=== PATIENT | female | born 1955 | race Caucasian/White ===

== ENCOUNTER → 2017-03-18 | Outpatient (CLI) | payer BC ==
--- NOTE | 2017-03-18 15:50 | US ---
EXAMINATION TYPE: US thyroid st tissue head/neck DATE OF EXAM: 03/18/2017 COMPARISON: Thyroid ultrasound April 27, 2015 CLINICAL HISTORY: E04.1 Thyroid Nodule; Following up left thyroid nodule GLAND SIZE: Right Lobe: 4.5 x 1.5 x 1.2 cm Overall Parenchyma: heterogenous Left Lobe: 5.3 x 1.9 x 1.3 cm Overall Parenchyma: heterogeneous Isthmus Thickness: 0.3 cm NODULES RIGHT: # of nodules measured on right: 0 LEFT: # of nodules measured on left: 1 1. 2.4 X 1.4 x 1.2 cm isoechoic mixed nodule at the lower pole with well-defined margins. This nod ule is wider than tall and shows intranodular vascularity. Prior size: 2.3 x 1.2 x 1.8 cm ISTHMUS: # of nodules measured in the isthmus: 0 Bilateral neck scanned, no evidence of lymphadenopathy. IMPRESSION: There is stable appearing 2.4 cm left thyroid nodule which has been sampled in the past. No new suspi cious greater than 1 cm solid or cystic nodules are seen.
== END | disposition home or self-care (01) ==
LOC: RADUSWWP 15:08
PROVIDERS: ATTEND Family Medicine
DX: E04.1 Nontoxic single thyroid nodule (principal); I48.2 Chronic atrial fibrillation; I10 Essential (primary) hypertension
CPT/HCPCS: 76536

== ENCOUNTER 2020-07-31 18:00 | Emergency (ER) | payer MEDICARE ==
[2020-07-31 18:04] VITALS: TEMP 98.1
[2020-07-31] MEDS ORDERED: HYDROmorphone 1 MG/ML 1 ML SYRINGE IM STA (18:49)
--- NOTE | 2020-07-31 19:48 | XR ---
EXAM: Abdomen radiograph. HISTORY: Pain. TECHNIQUE: Supine AP view. COMPARISON: None available. FINDINGS: There is mild colonic gas with a nonobstructive pattern. There are no pathologic calcifications. No a cute osseous abnormality seen. Cholecystectomy clips seen. IMPRESSION: Nonobstructive bowel gas pattern. Mild colonic gas.
[2020-07-31 20:38] VITALS: RESP 16
--- NOTE | 2020-07-31 22:19 | ED ---
Abdominal Pain HPI - General Chief Complaint: Abdominal Pain Stated Complaint: post op constipation Time Seen by Provider: 07/31/20 18:05 Source: patient Mode of arrival: ambulatory Limitations: no limitations - History of Present Illness Initial Comments: Patient is a 64-year-old female with past medical history of Gen torre who is status post left shoulder repair on July 23. Patient was placed on Percocet after her surgery. States that she has been taking it up until 3 days ago because she began developing constipation. She was taking Ducolax and Colace starting 2 days after surgery and over the past few days also began using glycerin suppositories and an enema. Last BM was the day of her surgery. Patient states that she has significant rectal pain and pressure. Denies any anterior abdominal pain. No nausea or vomiting. No fevers or chills. Denies any issues with her urination. No other alleviating, precipitating or modifying factors - Related Data Home Medications Medication Instructions Recorded Confirmed Acetaminophen Tab [Tylenol Tab] 1,000 mg PO Q6HR PRN 07/31/20 07/31/20 Aspirin EC [Ecotrin Low Dose] 81 mg PO DAILY 07/31/20 07/31/20 Docusate [Colace] 200 mg PO BID PRN 07/31/20 07/31/20 Glycerin Adult Suppository 1 supp RECTAL DAILY PRN 07/31/20 07/31/20 Ibuprofen [Advil] 400 mg PO Q8HR PRN 07/31/20 07/31/20 Magnesium Hydroxide [Dulcolax Oral 60 mg PO BID PRN 07/31/20 07/31/20 Susp] Metoprolol Tartrate [Lopressor] 12.5 mg PO BID 07/31/20 07/31/20 Na Phos,M-B/Na Phos,Di-Ba [Fleet 133 ml RECTAL DAILY PRN 07/31/20 07/31/20 Adult] Ondansetron [Zofran ODT] 4 mg PO Q8HR PRN 07/31/20 07/31/20 Propafenone HCl 300 mg PO DAILY PRN 07/31/20 07/31/20 Previous Rx's Medication Instructions Recorded Hydrocortisone [Anusol-Hc] 1 applic RECTAL TID PRN #60 gm 07/31/20 Allergies Allergy/AdvReac Type Severity Reaction Status Date / Time cobalt Allergy Rash/Hives Verified 07/31/20 18:33 codeine Allergy Nausea & Verified 07/31/20 18:33 Vomiting ferrous sulfate Allergy Rash/Hives Verified 07/31/20 18:33 heparin Allergy Unknown Verified 07/31/20 18:33 nickel Allergy Rash/Hives Verified 07/31/20 18:33 norfloxacin [From Noroxin] Allergy Rash/Hives Verified 07/31/20 18:33 Review of Systems ROS Statement: Those systems with pertinent positive or pertinent negative responses have been documented in the HPI. ROS Other: All systems not noted in ROS Statement are negative. Past Medical History Past Medical History: Atrial Fibrillation, Myocardial Infarction ([place]) Additional Past Medical History / Comment(s): 11/14/14 ADMITTED WITH CHEST DISCOMFORT. 08/14/14 Pt presented to [facility] ER with complaints of irregular heart beat this AM. She did have some SOB and palpitations. Other HX: Afib with RVR with admission 08/06/13 here at [facility]. 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 History of Any Multi-Drug Resistant Organisms: None Reported Past Surgical History: Adenoidectomy, Breast Surgery, Cardiac Ablation, Section, Cholecystectomy, Heart Catheterization, Tonsillectomy Additional Past Surgical History / Comment(s): Left total shoulder surgery. R knee arthroscopy x 4, 2 C-Sections, R breast bx-benign Past Anesthesia/Blood Transfusion Reactions: Motion Sickness Additional Past Anesthesia/Blood Transfusion Reaction / Comment(s): NAUSEA FROM ANESTHESIA. NO REACTIONS FROM BLOOD. Past Psychological History: No Psychological Hx Reported Smoking Status: Never smoker Past Alcohol Use History: Occasional Past Drug Use History: None Reported - Past Family History Father Family Medical History: AFIB, Vascular Disorder Mother Family Medical History: Cancer, Dementia, Hypertension Additional Family Medical History / Comment(s): Mother had a RBBB.MELANOMA Brother(s) Family Medical History: AFIB Additional Family Medical History / Comment(s): Pt has 4 brothers with AFIB. General Exam Limitations: no limitations General appearance: alert, in no apparent distress Head exam: Present: atraumatic, normocephalic, normal inspection Eye exam: Present: normal appearance, PERRL, EOMI. Absent: scleral icterus, conjunctival injection, periorbital swelling ENT exam: Present: normal exam, mucous membranes moist Neck exam: Present: normal inspection. Absent: tenderness, meningismus, lymphadenopathy Respiratory exam: Present: normal lung sounds bilaterally. Absent: respiratory distress, wheezes, rales, rhonchi, stridor Cardiovascular Exam: Present: regular rate, normal rhythm, normal heart sounds. Absent: systolic murmur, diastolic murmur, rubs, gallop, clicks GI/Abdominal exam: Present: soft, normal bowel sounds. Absent: distended, tenderness, guarding, rebound, rigid Rectal exam: Present: fecal impaction, hemorrhoids. Absent: mass Extremities exam: Present: normal inspection, full ROM, normal capillary refill. Absent: tenderness, pedal edema, joint swelling, calf tenderness Back exam: Present: normal inspection Neurological exam: Present: alert, oriented X3, CN II-XII intact Psychiatric exam: Present: normal affect, normal mood Skin exam: Present: warm, dry, intact, normal color. Absent: rash Course Vital Signs 07/31/20 07/31/20 07/31/20 18:02 20:35 22:52 Temperature 98.1 F Pulse Rate 96 79 80 Respiratory 20 16 16 Rate Blood Pressure 145/76 128/88 130/84 O2 Sat by Pulse 99 98 Oximetry Medical Decision Making - Medical Decision Making Upon arrival patient was placed into room 21. A thorough history and physical exam was performed. I did recommend an x-ray which demonstrates nonobstructive bowel gas pattern with mild colonic gas. I did discuss disimpaction versus enema and the patient does agree to both. She is concerned about significant pain during the disimpaction and therefore is requesting pain medications. She was given an IM injection of Dilaudid. Rectal does impaction was performed however the patient did not tolerate it well. This is followed by a milk of molasses enema. Patient does have a small bowel movement and feels comfortable going home at this time. I did recommend continued stimulation to ensure that the patient is moving her bowels appropriately. I discussed treatment with magnesium citrate and milk of magnesia. Patient states that she would prefer milk of mag will pick it up from the pharmacy tomorrow. The patient does have some rectal pain with an inflamed hemorrhoid and therefore I did write the patient for Anusol cream. The patient is instructed to follow-up with her primary care doctor. Recommended staying away from narcotic pain medications for postop pain control. Call her orthopedic doctor tomorrow to see if she may take NSAIDs. The patient agreed to this. She was given written and verbal discharge instructions and discharged home in stable condition Disposition Clinical Impression: Constipation, S/P shoulder surgery Disposition: HOME SELF-CARE Condition: Stable Instructions (If sedation given, give patient instructions): Constipation (ED) Additional Instructions: Please purchase Milk of Magnesia tomorrow as directed in order to have a bowel movement. Use the Anusol cream for rectal pain. Follow-up with your doctor within 2-4 days. Return to the emergency room for any new or worsening symptoms Prescriptions: Hydrocortisone [Anusol-Hc] 1 applic RECTAL TID PRN #60 gm PRN Reason: Pain Is patient prescribed a controlled substance at d/c from ED?: No Referrals: Alicia Reyes III, MD [Primary Care Provider] - 1-2 days Time of Disposition: 22:19
[2020-07-31 22:54] VITALS: BP 130/84; PULSE 80
== END 2020-07-31 22:54 | disposition home or self-care (01) ==
LOC: EC 18:00
DX: K59.09 Other constipation (principal); I25.2 Old myocardial infarction; I48.91 Unspecified atrial fibrillation; Z90.49 Acquired absence of other specified parts of digestive tract; Z95.5 Presence of coronary angioplasty implant and graft; Z90.09 Acquired absence of other part of head and neck
CPT/HCPCS: 74018; 99284; 96372; J1170

== ENCOUNTER 2021-06-01 16:47 | Emergency (ER) | payer MEDICARE ==
[2021-06-01] MEDS ORDERED: SODIUM CHLORIDE 0.9% 1,000 ML IV ONE (17:08)
[2021-06-01 17:19] LABS: Basophils % (A) 0 %; Eosinophils # (A) 0.2 k/uL (0-0.7); Eosinophils % (A) 2 %; HCT 42.7 % (34.0-46.0); HGB 13.7 gm/dL (11.4-16.0); Lymphocytes # (A) 2.8 k/uL (1.0-4.8); Lymphocytes % (A) 34 %; MCH 31.4 pg (25.0-35.0); Mean Platelet Volume 9.6; Monocytes # (A) 0.5 k/uL (0-1.0); Monocytes % (A) 6 %; Neutrophils # (A) 4.6 k/uL (1.3-7.7); Neutrophils % (A) 55 %; Platelet Count 210 k/uL (150-450); RBC 4.36 m/uL (3.80-5.40); RDW 14.4 % (11.5-15.5); WBC 8.3 k/uL (3.8-10.6)
[2021-06-01] MEDS ORDERED: DILTIAZEM DRIP BOLUS FROM BAG 1 MG SOLN IV ONE (17:20)
[2021-06-01] MEDS ORDERED: DILTIAZEM 125 MG in SODIUM CHLORIDE 0.9% 100 ML IV SCH (17:30)
[2021-06-01 17:33] LABS: Partial Thromboplastin Time 28.8 sec (22.0-30.0); Prothrombin Time 10.6 sec (9.0-12.0)
[2021-06-01 17:39] LABS: Albumin 4.3 g/dL (3.5-5.0); Magnesium 1.7 mg/dL (1.6-2.3); Potassium 4.1 mmol/L (3.5-5.1); Total Bilirubin 0.5 mg/dL (0.2-1.3); Total Protein 7.5 g/dL (6.3-8.2)
--- NOTE | 2021-06-01 17:53 | XR ---
EXAMINATION TYPE: XR chest 1V portable DATE OF EXAM: 06/01/2021 COMPARISON: 01/28/2017 HISTORY: Dysrhythmia TECHNIQUE: Single view FINDINGS: There is no heart failure no confluent pneumonic infiltrate. Costophrenic angles are clear. There is left shoulder prosthesis. There are chest leads. Or significant arthritic disease in the ri t shoulder. IMPRESSION: No active cardiopulmonary disease. No adverse change.
--- NOTE | 2021-06-01 17:58 | ED ---
General Adult HPI - General Chief complaint: Arrhythmia/Palpitations Stated complaint: Racing HR Time Seen by Provider: 06/01/21 17:01 Source: patient, RN notes reviewed, old records reviewed Mode of arrival: wheelchair Limitations: no limitations - History of Present Illness Initial comments: 65-year-old female presenting for evaluation of palpitation, sensation and she has a racing heart. She has history of atrial fibrillation. She is on Rythmol and metoprolol. Patient states that just prior to arrival she developed the sensation of racing heart. She has some minimal chest discomfort associated with this. As well as minimal dyspnea. No fever. No vomiting. No lower extremity pain or swelling. - Related Data Home Medications Medication Instructions Recorded Confirmed Metoprolol Tartrate [Lopressor] 25 mg PO BID 07/31/20 06/01/21 Propafenone HCl 300 mg PO DAILY PRN 07/31/20 06/01/21 Apixaban [Eliquis] 5 mg PO BID 06/01/21 06/01/21 Ascorbic Acid [Vitamin C] 1,000 mg PO DAILY 06/01/21 06/01/21 Carbidopa-Levodopa 25-100 mg 1.5 tab PO TID 06/01/21 06/01/21 [Sinemet 25-100] Cholecalciferol [Vitamin D3 (25 25 mcg PO DAILY 06/01/21 06/01/21 Mcg = 1000 Iu)] Allergies Allergy/AdvReac Type Severity Reaction Status Date / Time cobalt Allergy Rash/Hives Verified 06/01/21 17:49 ferrous sulfate Allergy Rash/Hives Verified 06/01/21 17:49 heparin Allergy Unknown Verified 06/01/21 17:49 nickel Allergy Rash/Hives Verified 06/01/21 17:49 norfloxacin [From Noroxin] Allergy Rash/Hives Verified 06/01/21 17:49 codeine AdvReac Nausea & Verified 06/01/21 17:49 Vomiting Review of Systems ROS Statement: Those systems with pertinent positive or pertinent negative responses have been documented in the HPI. ROS Other: All systems not noted in ROS Statement are negative. Past Medical History Past Medical History: Atrial Fibrillation, Myocardial Infarction ([place]) Additional Past Medical History / Comment(s): 11/14/14 ADMITTED WITH CHEST DISCOMFORT. 08/14/14 Pt presented to [facility] ER with complaints of irregular heart beat this AM. She did have some SOB and palpitations. Other HX: Afib with RVR with admission 08/06/13 here at [facility]. 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 History of Any Multi-Drug Resistant Organisms: None Reported Past Surgical History: Adenoidectomy, Breast Surgery, Cardiac Ablation, Section, Cholecystectomy, Heart Catheterization, Tonsillectomy Additional Past Surgical History / Comment(s): Left total shoulder surgery. R knee arthroscopy x 4, 2 C-Sections, R breast bx-benign Past Anesthesia/Blood Transfusion Reactions: Motion Sickness Additional Past Anesthesia/Blood Transfusion Reaction / Comment(s): NAUSEA FROM ANESTHESIA. NO REACTIONS FROM BLOOD. Past Psychological History: No Psychological Hx Reported Smoking Status: Never smoker Past Alcohol Use History: Occasional Past Drug Use History: None Reported - Past Family History Father Family Medical History: AFIB, Vascular Disorder Mother Family Medical History: Cancer, Dementia, Hypertension Additional Family Medical History / Comment(s): Mother had a RBBB.MELANOMA Brother(s) Family Medical History: AFIB Additional Family Medical History / Comment(s): Pt has 4 brothers with AFIB. General Exam Limitations: no limitations General appearance: alert, in no apparent distress Head exam: Present: atraumatic, normocephalic Eye exam: Present: normal appearance, PERRL, EOMI ENT exam: Present: normal exam Neck exam: Present: normal inspection. Absent: tenderness, meningismus Respiratory exam: Present: normal lung sounds bilaterally. Absent: respiratory distress Cardiovascular Exam: Present: tachycardia, irregular rhythm GI/Abdominal exam: Present: soft. Absent: distended, tenderness, guarding Extremities exam: Present: normal inspection, normal capillary refill. Absent: pedal edema, calf tenderness Neurological exam: Present: alert, oriented X3, CN II-XII intact. Absent: motor sensory deficit Psychiatric exam: Present: normal affect, normal mood Skin exam: Present: warm, dry, intact. Absent: cyanosis, diaphoretic Course Vital Signs 06/01/21 06/01/21 06/01/21 17:07 17:10 17:11 Temperature 98.3 F 98.4 F Pulse Rate 154 H 178 H Pulse Rate [ 137 H [employer] Business [employer] ] Respiratory 18 24 Rate Blood Pressure 146/100 146/100 O2 Sat by Pulse 99 96 Oximetry 06/01/21 06/01/21 06/01/21 17:27 18:26 18:57 Temperature Pulse Rate 147 H 166 H 151 H Pulse Rate [ [employer] ] Respiratory 18 Rate Blood Pressure 109/55 107/64 114/63 O2 Sat by Pulse 100 100 100 Oximetry 06/01/21 06/01/21 21:00 22:03 Temperature Pulse Rate 85 78 Pulse Rate [ [employer] ] Respiratory 18 18 Rate Blood Pressure 104/64 99/55 O2 Sat by Pulse 95 96 Oximetry - Reevaluation(s) Reevaluation #1: 06/01/21 17:[address] Julien regarding antiarrhythmic choice, agrees with Cardizem at this time. EKG Findings - EKG Comments: EKG Findings:: EKG: Atrial fibrillation with RVR, low voltage, LVH, ST segment depression and T-wave inversion in the lateral precordial leads as well as aVL. No ST segment elevation. Rate of 170, QRS duration 83, QTC 348. Repeat EKG at 2113, sinus rhythm with a rate of 90, W[place] interval 165, QRS duration 89, QTC 395, no ST segment elevation, T-wave inversion in the inferior leads and lateral leads. Medical Decision Making - Medical Decision Making 65-year-old female with atrial fibrillation presenting with palpitations, found to be in atrial fibrillation with RVR. Patient is otherwise stable. Workup is initiated. Chest x-ray is clear. She has normal CBC, normal CMP, negative troponin. I did discuss case with cardiology regarding antiarrhythmics because the patient was on metoprolol and Rythmol. Her condition was for a Cardizem infusion. This was started in the emergency department. I did plan to admit this patient for telemetry, close monitoring and cardiology consultation. The patient wished to wait in the emergency department to see if she would convert. She states that on previous occasions she had converted in the emergency department and did not require admission. She does not want to be admitted at this time. I had already discussed case with the admitting team, Daniella parham for [facility]. Patient's was observed and did convert to sinus rhythm. She states she has an appointment with her traffic controller cable for stress echo and further evaluation within the next several weeks. She wishes to be discharged home. She's given strict return parameters including chest pain or palpitations, lightheadedness, or syncope. - Lab Data Result diagrams: 06/01/21 17:06 06/01/21 17:06 Lab Results 06/01/21 06/01/21 06/01/21 Range/Units 17:06 17:06 17:06 WBC 8.3 (3.8-10.6) k/uL RBC 4.36 (3.80-5.40) m/uL Hgb 13.7 (11.4-16.0) gm/dL Hct 42.7 (34.0-46.0) % MCV 98.0 (80.0-100.0) fL MCH 31.4 (25.0-35.0) pg MCHC 32.0 (31.0-37.0) g/dL RDW 14.4 (11.5-15.5) % Plt Count 210 (150-450) k/uL MPV 9.6 Neutrophils % 55 % Lymphocytes % 34 % Monocytes % 6 % Eosinophils % 2 % Basophils % 0 % Neutrophils # 4.6 (1.3-7.7) k/uL Lymphocytes # 2.8 (1.0-4.8) k/uL Monocytes # 0.5 (0-1.0) k/uL Eosinophils # 0.2 (0-0.7) k/uL Basophils # 0.0 (0-0.2) k/uL PT 10.6 (9.0-12.0) sec INR 1.0 (<1.2) APTT 28.8 (22.0-30.0) sec Sodium (137-145) mmol/L Potassium (3.5-5.1) mmol/L Chloride (98-107) mmol/L Carbon Dioxide (22-30) mmol/L Anion Gap mmol/L BUN (7-17) mg/dL Creatinine (0.52-1.04) mg/dL Est GFR (CKD-EPI)AfAm (>60 ml/min/1.73 sqM) Est GFR (CKD-EPI)NonAf (>60 ml/min/1.73 sqM) Glucose (74-99) mg/dL Calcium (8.4-10.2) mg/dL Magnesium (1.6-2.3) mg/dL Total Bilirubin (0.2-1.3) mg/dL AST (14-36) U/L ALT (4-34) U/L Alkaline Phosphatase (38-126) U/L Troponin I (0.000-0.034) ng/mL Total Protein (6.3-8.2) g/dL Albumin (3.5-5.0) g/dL TSH (0.465-4.680) mIU/L Urine Color Light Yellow Urine Appearance Clear (Clear) Urine pH 6.0 (5.0-8.0) Ur Specific [place] 1.003 (1.001-1.035) Urine Protein Negative (Negative) Urine Glucose (UA) Negative (Negative) Urine Ketones 1+ H (Negative) Urine Blood Negative (Negative) Urine Nitrite Negative (Negative) Urine Bilirubin Negative (Negative) Urine Urobilinogen <2.0 (<2.0) mg/dL Ur Leukocyte Esterase Moderate H (Negative) Urine RBC 1 (0-5) /hpf Urine WBC 20 H (0-5) /hpf Ur Squamous Epith Cells 1 (0-4) /hpf Urine Bacteria Rare H (None) /hpf Urine Mucus Rare H (None) /hpf 06/01/21 06/01/21 06/01/21 Range/Units 17:06 17:06 21:35 WBC (3.8-10.6) k/uL RBC (3.80-5.40) m/uL Hgb (11.4-16.0) gm/dL Hct (34.0-46.0) % MCV (80.0-100.0) fL MCH (25.0-35.0) pg MCHC (31.0-37.0) g/dL RDW (11.5-15.5) % Plt Count (150-450) k/uL MPV Neutrophils % % Lymphocytes % % Monocytes % % Eosinophils % % Basophils % % Neutrophils # (1.3-7.7) k/uL Lymphocytes # (1.0-4.8) k/uL Monocytes # (0-1.0) k/uL Eosinophils # (0-0.7) k/uL Basophils # (0-0.2) k/uL PT (9.0-12.0) sec INR (<1.2) APTT (22.0-30.0) sec Sodium 137 (137-145) mmol/L Potassium 4.1 (3.5-5.1) mmol/L Chloride 103 (98-107) mmol/L Carbon Dioxide 22 (22-30) mmol/L Anion Gap 12 mmol/L BUN 22 H (7-17) mg/dL Creatinine 0.81 (0.52-1.04) mg/dL Est GFR (CKD-EPI)AfAm 88 (>60 ml/min/1.73 sqM) Est GFR (CKD-EPI)NonAf 76 (>60 ml/min/1.73 sqM) Glucose 94 (74-99) mg/dL Calcium 9.0 (8.4-10.2) mg/dL Magnesium 1.7 (1.6-2.3) mg/dL Total Bilirubin 0.5 (0.2-1.3) mg/dL AST 19 (14-36) U/L ALT 9 (4-34) U/L Alkaline Phosphatase 100 (38-126) U/L Troponin I <0.012 <0.012 (0.000-0.034) ng/mL Total Protein 7.5 (6.3-8.2) g/dL Albumin 4.3 (3.5-5.0) g/dL TSH 2.040 (0.465-4.680) mIU/L Urine Color Urine Appearance (Clear) Urine pH (5.0-8.0) Ur Specific [place] (1.001-1.035) Urine Protein (Negative) Urine Glucose (UA) (Negative) Urine Ketones (Negative) Urine Blood (Negative) Urine Nitrite (Negative) Urine Bilirubin (Negative) Urine Urobilinogen (<2.0) mg/dL Ur Leukocyte Esterase (Negative) Urine RBC (0-5) /hpf Urine WBC (0-5) /hpf Ur Squamous Epith Cells (0-4) /hpf Urine Bacteria (None) /hpf Urine Mucus (None) /hpf Disposition Clinical Impression: Atrial fibrillation with RVR, Atrial fibrillation Disposition: HOME SELF-CARE Condition: Fair Instructions (If sedation given, give patient instructions): A-fib (Atrial Fibrillation) (ED), Heart Palpitations (ED) Is patient prescribed a controlled substance at d/c from ED?: No Referrals: Alicia Reyes III, MD [Primary Care Provider] - 1-2 days
[2021-06-01 18:58] VITALS: RESP 18
[2021-06-01 19:56] LABS: Appearance,Urine Clear (Clear); Bacteria,Urine Rare /hpf; Bilirubin,Urine Negative (Negative); Blood,Urine Negative (Negative); Color,Urine Light Yellow; Glucose,Urine (UA) Negative (Negative); Ketones,Urine 1+ (Negative); Leukocyte Esterase,Urine Moderate (Negative); Mucus,Urine Rare /hpf; Nitrite,Urine Negative (Negative); Protein,Urine Negative (Negative); RBC,Urine 1 /hpf (0-5); Specific Gravity,Urine 1.003 (1.001-1.035); Squamous Epithelial Cell,Urine 1 /hpf (0-4); Urobilinogen,Urine <2.0 mg/dL (<2.0); WBC,Urine 20 /hpf (0-5)
[2021-06-01] MEDS ORDERED: SODIUM CHLORIDE 0.9% 500 ML 500 ML IV ONE (20:26)
[2021-06-01 22:47] VITALS: BP 117/60; PULSE 82; TEMP 97.9
== END 2021-06-01 23:01 | disposition home or self-care (01) ==
LOC: EC 16:47
DX: I48.20 Chronic atrial fibrillation, unspecified (principal); I25.2 Old myocardial infarction; Z79.01 Long term (current) use of anticoagulants; Z88.5 Allergy status to narcotic agent; Z88.1 Allergy status to other antibiotic agents; Z90.49 Acquired absence of other specified parts of digestive tract
CPT/HCPCS: 36415; 71045; 80053; 81001; 83735; 84443; 84484; 85025; 85610; 85730; 87077; 87086; 87186; 93005; 96374; 99285

== ENCOUNTER 2021-10-23 10:12 | Inpatient (IN) | payer MEDICARE ==
[2021-10-23] MEDS ORDERED: DILTIAZEM DRIP BOLUS FROM BAG 1 MG SOLN IV ONE (10:32)
[2021-10-23] MEDS ORDERED: SODIUM CHLORIDE 0.9% 500 ML 500 ML IV STA (10:32)
[2021-10-23] MEDS ORDERED: MAGNESIUM SULFATE-D5W PMX 1 GM in DEXTROSE/WATER 1 100ML.BAG IVPB STA (10:32)
--- NOTE | 2021-10-23 11:05 | ED ---
Arrhythmia/Palpitations HPI - General Chief Complaint: Arrhythmia/Palpitations Stated Complaint: AFIB Time Seen by Provider: 10/23/21 10:20 Source: patient, RN notes reviewed Mode of arrival: wheelchair Limitations: no limitations - History of Present Illness Initial Comments: This is a 65-year-old female presents emergency Department with chief complaint of palpitations, A. fib. Patient has long history of atrial fibrillation patient she is on blood thinners, medications for A. fib and has had ablation past he states around 9:30 last that she took a drink water and felt symptoms started. She states she took her normal medications until next dose with no relief of symptoms. Patient states that she feels lightheaded, short of breath at times. Patient states she still feels that she is in A. fib. - Related Data Home Medications Medication Instructions Recorded Confirmed Metoprolol Tartrate [Lopressor] 12.5 mg PO BID 07/31/20 10/23/21 Apixaban [Eliquis] 5 mg PO BID 06/01/21 10/23/21 Carbidopa-Levodopa 25-100 mg 1.5 tab PO TID 06/01/21 10/23/21 [Sinemet 25-100] Propafenone [Rythmol] 150 mg PO Q8H 10/23/21 10/23/21 Allergies Allergy/AdvReac Type Severity Reaction Status Date / Time cobalt Allergy Rash/Hives Verified 10/23/21 11:29 ferrous sulfate Allergy Rash/Hives Verified 10/23/21 11:29 nickel Allergy Rash/Hives Verified 10/23/21 11:29 norfloxacin [From Noroxin] Allergy Rash/Hives Verified 10/23/21 11:29 codeine AdvReac Nausea & Verified 10/23/21 11:29 Vomiting heparin AdvReac see comment Verified 10/23/21 11:29 Review of Systems ROS Statement: Those systems with pertinent positive or pertinent negative responses have been documented in the HPI. ROS Other: All systems not noted in ROS Statement are negative. Past Medical History Past Medical History: Atrial Fibrillation, Myocardial Infarction ([place]) Additional Past Medical History / Comment(s): 11/14/14 ADMITTED WITH CHEST DISCOMFORT. 08/14/[address] [facility] ER with complaints of irregular heart beat this AM. She did have some SOB and palpitations. Other HX: Afib with RVR with admission 08/06/[address] [facility]. 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 History of Any Multi-Drug Resistant Organisms: None Reported Past Surgical History: Adenoidectomy, Breast Surgery, Cardiac Ablation, Section, Cholecystectomy, Heart Catheterization, Tonsillectomy Additional Past Surgical History / Comment(s): Left total shoulder surgery. R knee arthroscopy x 4, 2 C-Sections, R breast bx-benign Past Anesthesia/Blood Transfusion Reactions: Motion Sickness Additional Past Anesthesia/Blood Transfusion Reaction / Comment(s): NAUSEA FROM ANESTHESIA. NO REACTIONS FROM BLOOD. Past Psychological History: No Psychological Hx Reported Smoking Status: Former smoker Past Alcohol Use History: Occasional Past Drug Use History: None Reported - Past Family History Father Family Medical History: AFIB, Vascular Disorder Mother Family Medical History: Cancer, Dementia, Hypertension Additional Family Medical History / Comment(s): Mother had a RBBB.MELANOMA Brother(s) Family Medical History: AFIB Additional Family Medical History / Comment(s): Pt has 4 brothers with AFIB. General Exam Limitations: no limitations General appearance: alert, in no apparent distress Head exam: Present: atraumatic, normocephalic, normal inspection Eye exam: Present: normal appearance, PERRL, EOMI. Absent: scleral icterus, conjunctival injection, periorbital swelling ENT exam: Present: normal exam, normal oropharynx, mucous membranes moist Neck exam: Present: normal inspection. Absent: tenderness, meningismus, lymphadenopathy Respiratory exam: Present: normal lung sounds bilaterally. Absent: respiratory distress, wheezes, rales, rhonchi, stridor Cardiovascular Exam: Present: tachycardia, irregular rhythm, normal heart sounds. Absent: regular rate, normal rhythm, systolic murmur, diastolic murmur, rubs, gallop, clicks GI/Abdominal exam: Present: soft, normal bowel sounds. Absent: distended, tenderness, guarding, rebound, rigid Course Vital Signs 10/23/21 10/23/21 10:18 11:32 Temperature 98.2 F Pulse Rate 121 H 120 H Respiratory 16 18 Rate Blood Pressure 110/75 115/93 O2 Sat by Pulse 98 97 Oximetry EKG Findings - EKG Comments: EKG Findings:: Atrial flutter with RVR rate of 119 QRS 119 QT/QTC 241/312 Medical Decision Making - Medical Decision Making 65-year-old female presented for palpitations. Patient has atrial flutter with RVR. Patient started on Cardizem, magnesium, Cardizem infusion. Patient said persistent tachycardia, RVR. Patiently admitted for further medication, evaluation. - Lab Data Result diagrams: 10/23/21 10:36 10/23/21 10:36 Lab Results 10/23/21 10/23/21 10/23/21 Range/Units 10:36 10:36 10:36 WBC 6.1 (3.8-10.6) k/uL RBC 4.35 (3.80-5.40) m/uL Hgb 13.5 (11.4-16.0) gm/dL Hct 42.7 (34.0-46.0) % MCV 98.1 (80.0-100.0) fL MCH 31.0 (25.0-35.0) pg MCHC 31.6 (31.0-37.0) g/dL RDW 14.0 (11.5-15.5) % Plt Count 185 (150-450) k/uL MPV 9.8 Neutrophils % 73 % Lymphocytes % 18 % Monocytes % 6 % Eosinophils % 2 % Basophils % 1 % Neutrophils # 4.5 (1.3-7.7) k/uL Lymphocytes # 1.1 (1.0-4.8) k/uL Monocytes # 0.4 (0-1.0) k/uL Eosinophils # 0.1 (0-0.7) k/uL Basophils # 0.0 (0-0.2) k/uL PT 10.9 (9.0-12.0) sec INR 1.0 (<1.2) APTT 29.5 (22.0-30.0) sec Sodium 139 (137-145) mmol/L Potassium 4.3 (3.5-5.1) mmol/L Chloride 107 (98-107) mmol/L Carbon Dioxide 23 (22-30) mmol/L Anion Gap 9 mmol/L BUN 14 (7-17) mg/dL Creatinine 0.62 (0.52-1.04) mg/dL Est GFR (CKD-EPI)AfAm >90 (>60 ml/min/1.73 sqM) Est GFR (CKD-EPI)NonAf >90 (>60 ml/min/1.73 sqM) Glucose 104 H (74-99) mg/dL Calcium 9.1 (8.4-10.2) mg/dL Magnesium 1.5 L (1.6-2.3) mg/dL Total Bilirubin 0.4 (0.2-1.3) mg/dL AST 15 (14-36) U/L ALT <6 (4-34) U/L Alkaline Phosphatase 73 (38-126) U/L Troponin I (0.000-0.034) ng/mL Total Protein 6.6 (6.3-8.2) g/dL Albumin 3.8 (3.5-5.0) g/dL 10/23/21 Range/Units 10:36 WBC (3.8-10.6) k/uL RBC (3.80-5.40) m/uL Hgb (11.4-16.0) gm/dL Hct (34.0-46.0) % MCV (80.0-100.0) fL MCH (25.0-35.0) pg MCHC (31.0-37.0) g/dL RDW (11.5-15.5) % Plt Count (150-450) k/uL MPV Neutrophils % % Lymphocytes % % Monocytes % % Eosinophils % % Basophils % % Neutrophils # (1.3-7.7) k/uL Lymphocytes # (1.0-4.8) k/uL Monocytes # (0-1.0) k/uL Eosinophils # (0-0.7) k/uL Basophils # (0-0.2) k/uL PT (9.0-12.0) sec INR (<1.2) APTT (22.0-30.0) sec Sodium (137-145) mmol/L Potassium (3.5-5.1) mmol/L Chloride (98-107) mmol/L Carbon Dioxide (22-30) mmol/L Anion Gap mmol/L BUN (7-17) mg/dL Creatinine (0.52-1.04) mg/dL Est GFR (CKD-EPI)AfAm (>60 ml/min/1.73 sqM) Est GFR (CKD-EPI)NonAf (>60 ml/min/1.73 sqM) Glucose (74-99) mg/dL Calcium (8.4-10.2) mg/dL Magnesium (1.6-2.3) mg/dL Total Bilirubin (0.2-1.3) mg/dL AST (14-36) U/L ALT (4-34) U/L Alkaline Phosphatase (38-126) U/L Troponin I <0.012 (0.000-0.034) ng/mL Total Protein (6.3-8.2) g/dL Albumin (3.5-5.0) g/dL Critical Care Time Critical Care Time: Yes Total Critical Care Time: 35 Disposition Clinical Impression: Atrial flutter with rapid ventricular response Disposition: ADMITTED IP TO THIS HOSP Condition: Fair Referrals: Alicia Reyes III, MD [Primary Care Provider] - 1-2 days Time of Disposition: 12:41
[2021-10-23 11:10] LABS: Basophils % (A) 1 %; Eosinophils # (A) 0.1 k/uL (0-0.7); Eosinophils % (A) 2 %; HCT 42.7 % (34.0-46.0); HGB 13.5 gm/dL (11.4-16.0); Lymphocytes # (A) 1.1 k/uL (1.0-4.8); Lymphocytes % (A) 18 %; MCHC 31.6 g/dL (31.0-37.0); MCV 98.1 fL (80.0-100.0); Mean Platelet Volume 9.8; Monocytes # (A) 0.4 k/uL (0-1.0); Monocytes % (A) 6 %; Neutrophils # (A) 4.5 k/uL (1.3-7.7); Neutrophils % (A) 73 %; Platelet Count 185 k/uL (150-450); RBC 4.35 m/uL (3.80-5.40); WBC 6.1 k/uL (3.8-10.6)
[2021-10-23] MEDS: DILTIAZEM 125 MG in SODIUM CHLORIDE 0.9% 100 ML IV SCH ×2 (11:13→20:40)
[2021-10-23 11:21] LABS: Partial Thromboplastin Time 29.5 sec (22.0-30.0); Prothrombin Time 10.9 sec (9.0-12.0)
[2021-10-23 11:31] LABS: ALT <6 U/L (4-34); AST 15 U/L (14-36); African American GFR (CKD) >90 (>60 ml/min/1.73 sqM); Albumin 3.8 g/dL (3.5-5.0); Alkaline Phosphatase 73 U/L (38-126); Anion Gap 9 mmol/L; Blood Urea Nitrogen 14 mg/dL (7-17); Calcium 9.1 mg/dL (8.4-10.2); Carbon Dioxide 23 mmol/L (22-30); Chloride 107 mmol/L (98-107); Glucose 104 mg/dL (74-99); Magnesium 1.5 mg/dL (1.6-2.3); Non-African American GFR(CKD) >90 (>60 ml/min/1.73 sqM); Potassium 4.3 mmol/L (3.5-5.1); Sodium 139 mmol/L (137-145); Total Bilirubin 0.4 mg/dL (0.2-1.3); Total Protein 6.6 g/dL (6.3-8.2)
[2021-10-23] MEDS ORDERED: ONDANSETRON 4 MG/2 ML VIAL IVP PRN (12:42)
[2021-10-23] MEDS ORDERED: ACETAMINOPHEN TAB 325 MG TAB PO PRN (12:42)
[2021-10-23] MEDS ORDERED: NALOXONE 0.4 MG/ML 1 ML VIAL IV PRN (12:42)
[2021-10-23] MEDS ORDERED: METOPROLOL TARTRATE 25 MG TAB PO STA (13:53)
--- NOTE | 2021-10-23 14:06 | P.CRDCN ---
History of Present Illness History of present illness: HISTORY OF PRESENTING ILLNESS This is a pleasant 65-year-old female past medical history significant for persistent atrial fibrillation on Eliquis, previous ablation at [facility] in 2014, history of Takotsubo cardiomyopathy with improved ejection fraction, former smoker, Parkinson's disease, and recently being worked up for uterine cancer. She follows with an Prep Cook at [facility]. We have been asked to see in consultation for atrial fibrillation with RVR. Patient presents emergency department with complaints of palpitations. She states last night around 9:30PM she started to have palpitations. She took 300mg of her Rhythmol medications. She went to bed around 11pm. Woke up at 5Am and continued to have palpitations. She had associated lightheadedness and shortness of breath. She denies any chest pain, syncope or near syncope. She took another dose of her Rhythmol, no relief and decided to come to the emergency department for further evaluation. She recently followed up with doctor of naturopathic medicine at [facility], she had an EKG performed which she told she was normal. She states since her ablation she has been doing well. She denies any history of CAD, [place], Stroke, Diabetes. She is currently being evaluated for uterine cancer as an outpatient. DIAGNOSTICS * EKG reveals atrial flutter with RVR HR 119. * Telemetry tracings indicate atrial fibrillation vs flutter with rapid ventricular response, heart rate 120s * Laboratory reviewed, troponin negative, sodium 139, potassium 4.3, BUN 14, scintigram 0.6, magnesium 1.5, CBC unremarkable * Current home cardiac medications include Rythmol 150 mg Q8hr, metoprolol tartrate 12.5 mg twice a day, Sinemet, Eliquis 5 mg twice a day * Most recent cardiac catheterization on file in 2012 revealed no significant extra to coronary disease. with global decrease in contractility. * Most recent echo on file 2014 revealed EF 55%, mild pulmonary hypertension REVIEW OF SYSTEMS At the time of my exam: CONSTITUTIONAL: Denies fever or chills. CARDIOVASCULAR: Denies chest pain, shortness of breath, orthopnea, + reports palpitations RESPIRATORY: Denies cough. GASTROINTESTINAL: Denies abdominal pain, diarrhea, constipation, nausea or vomiting. MUSCULOSKELETAL: Denies myalgias. NEUROLOGIC: Denies numbness, tingling, headacbe or weakness. ENDOCRINE: Denies fatigue, weight change, polydipsia or polyurina. GENITOURINARY: Denies burning, hematuria or urgency with micturation. HEMATOLOGIC: Denies history of anemia or bleeding. PHYSICAL EXAMINATION Blood pressure 115/93, heart rate 120, afebrile, oxygen saturation 97% on room air CONSTITUTIONAL: No apparent distress. HEENT: Head is normocephalic. Pupils are equal, round. Sclerae anicteric. Mucous membranes of the mouth are moist. No JVD. No carotid bruit. CHEST EXAMINATION: Lungs are clear to auscultation. No chest wall tenderness is noted on palpation or with deep breathing. HEART EXAMINATION Irregular, tachycardic rate and rhythm. S1, S2 heard. No murmurs, gallops or rub. ABDOMEN: Soft, nontender. Positive bowel sounds. EXTREMITIES: 2+ peripheral pulses, no lower extremity edema and no calf tenderness. NEUROLOGIC EXAMINATION: Patient is awake, alert and oriented x3. ASSESSMENT Typical atrial flutter with RVR Persistent atrial fibrillation s/p ablation in [address] [facility] On Eliquis History of Takotsubo cardiomyopathy ejection fraction Parkinson's disease Former smoker PLAN Continue Cardizem drip Increase metoprolol tartrate 25mg BID Continue anticoagulation with Eliquis Obtain 2D echocardiogram and doppler study to assess cardiac structure and function. Continue cardiac telemetry Further recommendations based on clinical course Nurse practitioner note has been reviewed by physician. Signing provider agrees with the documented findings, assessment, and plan of care. Past Medical History Past Medical History: Atrial Fibrillation, Myocardial Infarction ([place]) Additional Past Medical History / Comment(s): 11/14/14 ADMITTED WITH CHEST DISCOMFORT. 08/14/14 Pt presented to [facility] ER with complaints of irregular heart beat this AM. She did have some SOB and palpitations. Other HX: Afib with RVR with admission 08/06/13 here at [facility]. 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 History of Any Multi-Drug Resistant Organisms: None Reported Past Surgical History: Adenoidectomy, Breast Surgery, Cardiac Ablation, Section, Cholecystectomy, Heart Catheterization, Tonsillectomy Additional Past Surgical History / Comment(s): Left total shoulder surgery. R knee arthroscopy x 4, 2 C-Sections, R breast bx-benign Past Anesthesia/Blood Transfusion Reactions: Motion Sickness Additional Past Anesthesia/Blood Transfusion Reaction / Comment(s): NAUSEA FROM ANESTHESIA. NO REACTIONS FROM BLOOD. Past Psychological History: No Psychological Hx Reported Smoking Status: Former smoker Past Alcohol Use History: Occasional Past Drug Use History: None Reported - Past Family History Father Family Medical History: AFIB, Vascular Disorder Mother Family Medical History: Cancer, Dementia, Hypertension Additional Family Medical History / Comment(s): Mother had a RBBB.MELANOMA Brother(s) Family Medical History: AFIB Additional Family Medical History / Comment(s): Pt has 4 brothers with AFIB. Medications and Allergies Home Medications Medication Instructions Recorded Confirmed Type Metoprolol Tartrate [Lopressor] 12.5 mg PO BID 07/31/20 10/23/21 History Apixaban [Eliquis] 5 mg PO BID 06/01/21 10/23/21 History Carbidopa-Levodopa 25-100 mg 1.5 tab PO TID 06/01/21 10/23/21 History [Sinemet 25-100] Propafenone [Rythmol] 150 mg PO Q8H 10/23/21 10/23/21 History Allergies Allergy/AdvReac Type Severity Reaction Status Date / Time cobalt Allergy Rash/Hives Verified 10/23/21 11:29 ferrous sulfate Allergy Rash/Hives Verified 10/23/21 11:29 nickel Allergy Rash/Hives Verified 10/23/21 11:29 norfloxacin [From Noroxin] Allergy Rash/Hives Verified 10/23/21 11:29 codeine AdvReac Nausea & Verified 10/23/21 11:29 Vomiting heparin AdvReac see comment Verified 10/23/21 11:29 Physical Exam Vitals: Vital Signs Temp Pulse Resp BP Pulse Ox 10/23/21 11:32 120 H 18 115/93 97 10/23/21 10:18 98.2 F 121 H 16 110/75 98 Intake and Output 10/22/21 10/23/21 10/23/21 22:59 06:59 14:59 Intake Total 7.167 Balance 7.167 Intake: Intake, IV Titration 7.167 Amount Diltiazem 125 mg In 7.167 Sodium Chloride 0.9% 100 ml @ 5 MG/HR 5 mls/hr IV .Q24H [facility] Rx#:[id number] Other: Weight 96.162 kg Results 10/23/21 10:36 10/23/21 10:36 Cardiac Enzymes 10/23/21 10/23/21 Range/Units 10:36 10:36 AST 15 (14-36) U/L Troponin I <0.012 (0.000-0.034) ng/mL Coagulation 10/23/21 Range/Units 10:36 PT 10.9 (9.0-12.0) sec APTT 29.5 (22.0-30.0) sec CBC 10/23/21 Range/Units 10:36 WBC 6.1 (3.8-10.6) k/uL RBC 4.35 (3.80-5.40) m/uL Hgb 13.5 (11.4-16.0) gm/dL Hct 42.7 (34.0-46.0) % Plt Count 185 (150-450) k/uL Comprehensive Metabolic Panel 10/23/21 Range/Units 10:36 Sodium 139 (137-145) mmol/L Potassium 4.3 (3.5-5.1) mmol/L Chloride 107 (98-107) mmol/L Carbon Dioxide 23 (22-30) mmol/L BUN 14 (7-17) mg/dL Creatinine 0.62 (0.52-1.04) mg/dL Glucose 104 H (74-99) mg/dL Calcium 9.1 (8.4-10.2) mg/dL AST 15 (14-36) U/L ALT <6 (4-34) U/L Alkaline Phosphatase 73 (38-126) U/L Total Protein 6.6 (6.3-8.2) g/dL Albumin 3.8 (3.5-5.0) g/dL Current Medications Generic Name Dose Route Start Last Admin Trade Name Freq PRN Reason Stop Dose Admin Acetaminophen 650 mg 10/23/21 12:42 Acetaminophen Tab 325 Mg Tab PO Q6HR PRN Mild Pain or Fever > 100.5 Diltiazem HCl 125 mg/ Sodium 125 mls @ 5 mls/hr 10/23/21 10:45 10/23/21 12:39 Chloride IV 10 mg/hr .Q24H [facility] 10 mls/hr Infusion 5 MG/HR Naloxone HCl 0.2 mg 10/23/21 12:42 Naloxone 0.4 Mg/Ml 1 Ml Vial IV Q2M PRN Opioid Reversal Ondansetron HCl 4 mg 10/23/21 12:42 Ondansetron 4 Mg/2 Ml Vial IVP Q8HR PRN Nausea And Vomiting Intake and Output 10/22/21 10/23/21 10/23/21 22:59 06:59 14:59 Intake Total 7.167 Balance 7.167 Intake: Intake, IV Titration 7.167 Amount Diltiazem 125 mg In 7.167 Sodium Chloride 0.9% 100 ml @ 5 MG/HR 5 mls/hr IV .Q24H [facility] Rx#:[id number] Other: Weight 96.162 kg Patient Weight 10/24/21 06:59 Weight 96.162 kg 10/23/21 10:36 10/23/21 10:36
--- NOTE | 2021-10-23 14:52 | P.HPIM ---
History of Present Illness This is a pleasant 65 years old female with past medical history of atrial fibrillation/flutter on liquids at home, Parkinson disease on Sinemet, hypertension. Presents because of irregular heart beat. Patient states she has palpitation with no chest pain or dizziness. She states that she's been taking her medication as she supposed to be however yesterday morning she missed her heart rate medication. She denies any abdominal pain or nausea vomiting or diarrhea. No urinary complaints. No headache or weakness or numbness. No dizziness. She denies smoking alcohol or illicit drug Patient heart rate around 120. Restoril vitals are stable. Labs including CBC, INR, BMP and liver enzymes and troponin are unremarkable. in Emergency room patient was started on Cardizem drip Review of Systems CONSTITUTIONAL: No fever, no malaise, no fatigue. HEENT: No recent visual problems or hearing problems. Denied any sore throat. CARDIOVASCULAR: No orthopnea, PND, no palpitations, no syncope. PULMONARY: No shortness of breath, no cough, no hemoptysis. GASTROINTESTINAL: No diarrhea, no nausea, no vomiting, no abdominal pain. Normoactive bowel sounds. NEUROLOGICAL: No headaches, no weakness, no numbness. HEMATOLOGICAL: Denies any bleeding or petechiae. GENITOURINARY: Denies any burning micturition, frequency, or urgency. MUSCULOSKELETAL/RHEUMATOLOGICAL: Denies any joint pain, swelling, or any muscle pain. ENDOCRINE: Denies any polyuria or polydipsia. Past Medical History Past Medical History: Atrial Fibrillation, Myocardial Infarction ([place]) Additional Past Medical History / Comment(s): 11/14/14 ADMITTED WITH CHEST DIS COMFORT. 08/14/14 Pt presented to [facility] ER with complaints of irregular heart beat this AM. She did have some SOB and palpitations. Other HX: Afib with RVR with admission 08/06/13 here at [facility]. 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 History of Any Multi-Drug Resistant Organisms: None Reported Past Surgical History: Adenoidectomy, Breast Surgery, Cardiac Ablation, Section, Cholecystectomy, Heart Catheterization, Tonsillectomy Additional Past Surgical History / Comment(s): Left total shoulder surgery. R knee arthroscopy x 4, 2 C-Sections, R breast bx-benign Past Anesthesia/Blood Transfusion Reactions: Motion Sickness Additional Past Anesthesia/Blood Transfusion Reaction / Comment(s): NAUSEA FROM ANESTHESIA. NO REACTIONS FROM BLOOD. Past Psychological History: No Psychological Hx Reported Smoking Status: Former smoker Past Alcohol Use History: Occasional Past Drug Use History: None Reported - Past Family History Father Family Medical History: AFIB, Vascular Disorder Mother Family Medical History: Cancer, Dementia, Hypertension Additional Family Medical History / Comment(s): Mother had a RBBB.MELANOMA Brother(s) Family Medical History: AFIB Additional Family Medical History / Comment(s): Pt has 4 brothers with AFIB. Medications and Allergies Home Medications Medication Instructions Recorded Confirmed Type Metoprolol Tartrate [Lopressor] 12.5 mg PO BID 07/31/20 10/23/21 History Apixaban [Eliquis] 5 mg PO BID 06/01/21 10/23/21 History Carbidopa-Levodopa 25-100 mg 1.5 tab PO TID 06/01/21 10/23/21 History [Sinemet 25-100] Propafenone [Rythmol] 150 mg PO Q8H 10/23/21 10/23/21 History Allergies Allergy/AdvReac Type Severity Reaction Status Date / Time cobalt Allergy Rash/Hives Verified 10/23/21 11:29 ferrous sulfate Allergy Rash/Hives Verified 10/23/21 11:29 nickel Allergy Rash/Hives Verified 10/23/21 11:29 norfloxacin [From Noroxin] Allergy Rash/Hives Verified 10/23/21 11:29 codeine AdvReac Nausea & Verified 10/23/21 11:29 Vomiting heparin AdvReac see comment Verified 10/23/21 11:29 Physical Exam Vitals: Vital Signs Temp Pulse Resp BP Pulse Ox 10/23/21 11:32 120 H 18 115/93 97 10/23/21 10:18 98.2 F 121 H 16 110/75 98 Intake and Output 10/22/21 10/23/21 10/23/21 22:59 06:59 14:59 Intake Total 7.167 Balance 7.167 Intake: Intake, IV Titration 7.167 Amount Diltiazem 125 mg In 7.167 Sodium Chloride 0.9% 100 ml @ 5 MG/HR 5 mls/hr IV .Q24H [facility] Rx#:[id number] Other: Weight 96.162 kg GENERAL: The patient is alert and oriented x3, not in any acute distress. Well developed, well nourished. HEENT: Pupils are round and equally reacting to light. EOMI. No scleral icterus. No conjunctival pallor. Normocephalic, atraumatic. No pharyngeal erythema. No thyromegaly. CARDIOVASCULAR: S1 and S2 present. No murmurs, rubs, or gallops. PULMONARY: Chest is clear to auscultation, no wheezing or crackles. ABDOMEN: Soft, nontender, nondistended, normoactive bowel sounds. No palpable o rganomegaly. MUSCULOSKELETAL: No joint swelling or deformity. EXTREMITIES: No cyanosis, clubbing, or pedal edema. NEUROLOGICAL: Gross neurological examination did not reveal any focal deficits. SKIN: No rashes. No petechiae Results CBC & Chem 7: 10/23/21 10:36 10/23/21 10:36 Labs: Abnormal Lab Results - Last 24 Hours (Table) 10/23/21 Range/Units 10:36 Glucose 104 H (74-99) mg/dL Magnesium 1.5 L (1.6-2.3) mg/dL Assessment and Plan Assessment: Atrial flutter with RVR History of Parkinson disease Hypertension Plan: This is a pleasant 65 years old female who presents with atrial flutter Continue with Cardizem drip Digital metoprolol Cardiology consult Labs and medication were reviewed.. Continue same treatment. Continue with symptomatic treatment. Resume home medication. Monitor lytes and vitals. DVT and GI prophylaxis. Further recommendations depends on the clinical course of the patient DVT prophylaxis: Eliquis GI Prophylaxis: Pepcid Prognosis is guarded
[2021-10-23] MEDS: CARBIDOPA-LEVODOPA 25-100 MG 1 EACH TAB PO SCH ×2 (16:15→20:39)
[2021-10-23] MEDS: METOPROLOL TARTRATE 25 MG TAB PO SCH ×2 (16:16→20:39)
[2021-10-23] MEDS: APIXABAN 5 MG TAB PO SCH (20:39)
[2021-10-23] MEDS: FAMOTIDINE 20 MG/2 ML VIAL IV SCH (20:40)
[2021-10-23] MEDS ORDERED: METOPROLOL TARTRATE 12.5 MG TAB PO SCH (21:00)
[2021-10-24 08:10] VITALS: RESP 16
[2021-10-24] MEDS: APIXABAN 5 MG TAB PO SCH (08:41)
[2021-10-24] MEDS: CARBIDOPA-LEVODOPA 25-100 MG 1 EACH TAB PO SCH (08:41)
[2021-10-24] MEDS ORDERED: PROPAFENONE 150 MG TAB PO SCH (09:00)
[2021-10-24] MEDS ORDERED: METOPROLOL TARTRATE 25 MG TAB PO SCH (09:00)
--- NOTE | 2021-10-24 09:16 | CA ---
Transthoracic Echo Report Name: Leila Azevedo Age: 65 Gender: F : 1955 Exam Date: 10/23/2021 15:34 Exam Location: [facility] Ht (in): 64 Wt (lb): 212 Ordering Physician: Kelly Dobbs Attending/Referring Phys: Self Pay Specialist Marjorie Casarez RDCS Procedure CPT: Indications: a fib Cardiac Hx: Technical Quality: Good Contrast 1: Total Dose (mL): Contrast 2: Total Dose (mL): MEASUREMENTS (Male / Female) Normal Values 2D ECHO LV Diastolic Diameter PLAX 5.2 cm 4.2 - 5.9 / 3.9 - 5.3 cm LV Systolic Diameter PLAX 4.1 cm IVS Diastolic Thickness 1.2 cm 0.6 - 1.0 / 0.6 - 0.9 cm LVPW Diastolic Thickness 1.0 cm 0.6 - 1.0 / 0.6 - 0.9 cm LV Relative Wall Thickness 0.4 RV Internal Dim ED PLAX 2.9 cm LA Systolic Diameter LX 3.7 cm 3.0 - 4.0 / 2.7 - 3.8 cm LV Diastolic Volume MOD BP 72.5 cm??? 67 - 155 / 56 - 104 cm??? LV Systolic Volume MOD BP 36.8 cm??? 22 - 58 / 19 - 49 cm??? LV Ejection Fraction MOD BP 49.2 % >= 55 % LV Diastolic Volume MOD 4C 91.9 cm??? LV Systolic Volume MOD 4C 64.5 cm??? LV Ejection Fraction MOD 4C 29.9 % LV Diastolic Length 4C 7.4 cm LV Systolic Length 4C 6.8 cm LV Diastolic Volume MOD 2C 54.7 cm??? LV Systolic Volume MOD 2C 26.6 cm??? LV Ejection Fraction MOD 2C 51.4 % LV Diastolic Length 2C 7.2 cm LV Systolic Length 2C 6.2 cm LA Volume 59.2 cm??? 18 - 58 / 22 - 52 cm??? M-MODE Aortic Root Diameter MM 3.3 cm MV E Point Septal Separation 0.7 cm AV Cusp Separation MM 1.9 cm DOPPLER AV Peak Velocity 151.0 cm/s AV Peak Gradient 9.1 mmHg MV Area PHT 7.9 cm??? MV Deceleration Time 92.4 ms TR Peak Velocity 210.0 cm/s TR Peak Gradient 17.6 mmHg Right Ventricular Systolic Press 21.6 mmHg FINDINGS Left Ventricle Left ventricular ejection fraction is estimated at 35-40 % .left ventricular cavity size normal. Borderline left ventricular hypertrophy. Right Ventricle Normal right ventricular size and function. Right ventricular systolic pressure within normal limits. Right Atrium Normal right atrial size. Left Atrium Mildly increased left atrial volume. No evidence for an atrial septal defect. Mitral Valve Structurally normal mitral valve. Trace to mild mitral regurgitation. Aortic Valve Trileaflet aortic valve. No aortic valve stenosis or regurgitation. Tricuspid Valve Mild tricuspid regurgitation. Pulmonic Valve Trace pulmonic regurgitation. Pericardium Normal pericardium. No pericardial effusion. Aorta Normal size aortic root and proximal ascending aorta. CONCLUSIONS Patient is a tachycardic. There is mild concentric LVH ejection fraction is about 40%. No significant abnormality in the Doppler exam. There is mild mitral annular calcification. No pericardial effusion Previewed by: Dr. Adam Funk MD (Electronically Signed) Final Date: 24 October 2021 09:15
[2021-10-24] MEDS: FAMOTIDINE 20 MG/2 ML VIAL IV SCH (09:31)
--- NOTE | 2021-10-24 10:09 | P.PN ---
Subjective This is a pleasant 65 years old female with past medical history of atrial fibrillation/flutter on liquids at home, Parkinson disease on Sinemet, hy pertension. Presents because of irregular heart beat. Patient states she has palpitation with no chest pain or dizziness. She states that she's been taking her medication as she supposed to be however yesterday morning she missed her heart rate medication. She denies any abdominal pain or nausea vomiting or diarrhea. No urinary complaints. No headache or weakness or numbness. No dizziness. She denies smoking alcohol or illicit drug Patient heart rate around 120. Restoril vitals are stable. Labs including CBC, INR, BMP and liver enzymes and troponin are unremarkable. in Emergency room patient was started on Cardizem drip 10/24/2021 Patient today does not have much of symptoms while lying in bed comfortable not in distress. She still on Cardizem drip at 15 mg/h for her A. fib/flutter. Her metoprolol dose was increased to 25 mg twice a day yesterday. However blood pressure and heart rate is fluctuating, heart rate 55-120, blood pressure 87/51 and this morning 109/54. She remains on liquids which is her home dose and her home dose of propafenone Objective - Vital Signs Vital signs: Vital Signs Temp 96.1 F L 10/24/21 08:00 Pulse 55 L 10/24/21 08:23 Resp 16 10/24/21 08:00 BP 109/54 10/24/21 08:00 Pulse Ox 96 10/24/21 08:00 FiO2 Intake & Output 10/23/21 10/24/21 10/24/21 18:59 06:59 18:59 Intake Total 7.167 80.167 Balance 7.167 80.167 Weight 96.162 kg Intake: Intake, IV Titration 7.167 80.167 Amount Diltiazem 125 mg In 7.167 80.167 Sodium Chloride 0.9% 100 ml @ 15 MG/HR 15 mls/hr IV .[id number] [facility] Rx#: [id number] Other: Voiding Method Toilet Toilet # Voids 1 2 - Exam GENERAL: The patient is alert and oriented x3, not in any acute distress. Well developed, well nourished. HEENT: Pupils are round and equally reacting to light. EOMI. No scleral icterus. No conjunctival pallor. Normocephalic, atraumatic. No pharyngeal erythema. No thyromegaly. CARDIOVASCULAR: S1 and S2 present. No murmurs, rubs, or gallops. PULMONARY: Chest is clear to auscultation, no wheezing or crackles. ABDOMEN: Soft, nontender, nondistended, normoactive bowel sounds. No palpable organomegaly. MUSCULOSKELETAL: No joint swelling or deformity. EXTREMITIES: No cyanosis, clubbing, or pedal edema. NEUROLOGICAL: Gross neurological examination did not reveal any focal deficits. SKIN: No rashes. no petechiae. - Labs CBC & Chem 7: 10/23/21 10:36 10/23/21 10:36 Labs: Abnormal Lab Results - Last 24 Hours (Table) 10/23/21 Range/Units 10:36 Glucose 104 H (74-99) mg/dL Magnesium 1.5 L (1.6-2.3) mg/dL Assessment and Plan Assessment: Atrial flutter with RVR History of Parkinson disease Hypertension Plan: This is a pleasant 65 years old female who presents with atrial flutter Continue with Cardizem drip Continue with metoprolol at higher dose per cardiology's recommendation Cardiology consult Labs and medication were reviewed.. Continue same treatment. Continue with symptomatic treatment. Resume home medication. Monitor lytes and vitals. DVT and GI prophylaxis. Further recommendations depends on the clinical course of the patient DVT prophylaxis: Eliquis GI Prophylaxis: Pepcid Prognosis is guarded
--- NOTE | 2021-10-24 10:41 | P.PN ---
Subjective This is a pleasant 65-year-old female past medical history significant for persistent atrial fibrillation on Eliquis, previous ablation at [facility] in 2014, history of Takotsubo cardiomyopathy with improved ejection fraction, former smoker, Parkinson's disease, and recently being worked up for uterine cancer. She follows with an Media Services Specialist at [facility]. We have been asked to see in consultation for atrial fibrillation with RVR. Patient presents emergency department with complaints of palpitations. EKG on admission revealed atrial flutter with RVR HR 119. She was started on IV Cardizem, metoprolol titrate 25 mg 3 times a day. She converted to sinus rhythm. 10/24/2021 Patient seen and examined at bedside, no acute distress. She denies any palpitations, chest pain or shortness of breath. Her symptoms have resolved. She is maintaining sinus rhythm with heart rates in the 50s60s, overnight did have some bradycardia episodes heart rate 46. She has been weaned off her Cardizem drip. Patient endorsing increased dizziness and bradycardia when she had her metoprolol increased at [facility]. Echo revealed an EF of 3540% PHYSICAL EXAMINATION Blood pressure CONSTITUTIONAL: No apparent distress. HEENT: Head is normocephalic. Neck supple, no JVD CHEST EXAMINATION: Lungs are clear to auscultation. No chest wall tenderness is noted on palpation or with deep breathing. HEART EXAMINATION regular rate and rhythm. S1, S2 heard. No murmurs, gallops or rub. ABDOMEN: Soft, nontender. Positive bowel sounds. EXTREMITIES: 2+ peripheral pulses, no lower extremity edema and no calf tender ness. NEUROLOGIC EXAMINATION: Patient is awake, alert and oriented x3. ASSESSMENT Typical atrial flutter with RVR maintaining sinus mechanism Persistent atrial fibrillation s/p ablation in 2014 at [facility] On Eliquis History of Takotsubo cardiomyopathy ejection fraction Parkinson's disease Former smoker PLAN Check limited Echo, previous Echo taken with A fib with RVR likely tachycardia induced cardiomyopathy Metoprolol tartrate 12.5mg BID Continue anticoagulation with Eliquis Continue Rhythmol From a cardiology perspective, patient stable to be discharged home. Follow-up with Dr. Rock in 2 weeks Nurse practitioner note has been reviewed by physician. Signing provider agrees with the documented findings, assessment, and plan of care. Objective - Vital Signs Vital signs: Vital Signs Temp 96.1 F L 10/24/21 08:00 Pulse 55 L 10/24/21 08:23 Resp 16 10/24/21 08:00 BP 109/54 10/24/21 08:00 Pulse Ox 96 10/24/21 08:00 FiO2 Intake & Output 10/23/21 10/24/21 10/24/21 18:59 06:59 18:59 Intake Total 7.167 80.167 Balance 7.167 80.167 Weight 96.162 kg Intake: Intake, IV Titration 7.167 80.167 Amount Diltiazem 125 mg In 7.167 80.167 Sodium Chloride 0.9% 100 ml @ 15 MG/HR 15 mls/hr IV .Q8H20M [facility] Rx#: [id number] Other: Voiding Method Toilet Toilet # Voids 1 2 - Labs CBC & Chem 7: 10/23/21 10:36 10/23/21 10:36 Labs: Abnormal Lab Results - Last 24 Hours (Table) 10/23/21 Range/Units 10:36 Glucose 104 H (74-99) mg/dL Magnesium 1.5 L (1.6-2.3) mg/dL
[2021-10-24 12:04] VITALS: BP 120/70; PULSE 62; TEMP 98.2
--- NOTE | 2021-10-24 15:01 | P.DS ---
Providers Date of admission: 10/23/21 12:49 Attending physician: Oh Blancas Consults: 10/23/21 12:42 Consult Physician Urgent Consulting Provider: Ricardo Rock Consult Reason/Comments: Atrial flutter Do you want consulting provider notified?: Yes Primary care physician: Alicia Reyes [facility] Course: please progress note from today Patient Condition at Discharge: Fair Plan - Discharge Summary New Discharge Prescriptions: New Acetaminophen Tab [Tylenol] 650 mg PO Q6HR PRN tab PRN Reason: Mild Pain Or Fever > 100.5 Continue Metoprolol Tartrate [Lopressor] 12.5 mg PO BID Propafenone [Rythmol] 150 mg PO Q8H Carbidopa-Levodopa 25-100 mg [Sinemet 25-100 mg] 1.5 tab PO TID Apixaban [Eliquis] 5 mg PO BID Discharge Medication List Metoprolol Tartrate [Lopressor] 12.5 mg PO BID 07/31/20 [History] Apixaban [Eliquis] 5 mg PO BID 06/01/21 [History] Carbidopa-Levodopa 25-100 mg [Sinemet 25-100 mg] 1.5 tab PO TID 06/01/21 [History] Propafenone [Rythmol] 150 mg PO Q8H 10/23/21 [History] Acetaminophen Tab [Tylenol] 650 mg PO Q6HR PRN tab 10/24/21 [Rx] Follow up Appointment(s)/Referral(s): Alicia Reyes III, MD [Primary Care Provider] - 1-2 days Ricardo Rock MD [STAFF PHYSICIAN] - 2 Weeks Activity/Diet/Wound Care/Special Instructions: heart healthy diet activity is restricted till you see your doctor Discharge Disposition: HOME SELF-CARE
[2021-10-24] MEDS ORDERED: FAMOTIDINE 20 MG TAB PO SCH (21:00)
[2021-10-24] MEDS ORDERED: METOPROLOL TARTRATE 12.5 MG TAB PO SCH (21:00)
--- NOTE | 2021-10-25 08:59 | CA ---
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 Repeat patient in sinus Cardiac Hx: Hx of afib. Technical Quality: Good Contrast 1: Total Dose (mL): Contrast 2: Total Dose (mL): MEASUREMENTS (Male / Female) Normal Values 2D ECHO LV Diastolic Diameter PLAX 5.1 cm 4.2 - 5.9 / 3.9 - 5.3 cm LV Systolic Diameter PLAX 3.3 cm IVS Diastolic Thickness 1.2 cm 0.6 - 1.0 / 0.6 - 0.9 cm LVPW Diastolic Thickness 1.1 cm 0.6 - 1.0 / 0.6 - 0.9 cm LV Relative Wall Thickness 0.4 FINDINGS Left Ventricle Mildly increased septal wall thickness. Mildly increased posterior wall thickness. Left ventricular ejection fraction is estimated at 45-50% Right Ventricle Right Atrium Left Atrium Mitral Valve Aortic Valve Tricuspid Valve Pulmonic Valve Pericardium No pericardial effusion. Aorta CONCLUSIONS Echo revealed improved ejection fraction of nearly 50% with mild concentric LVH Previewed by: Dr. Adam Funk MD (Electronically Signed) Final Date: 25 October 2021 08:59
== END 2021-10-24 15:25 | disposition home or self-care (01) | DRG 310 ==
LOC: EC 10:12 → 3SCARD 12:49
PROVIDERS: ADMIT Hospitalist; ATTEND Hospitalist
DX: I48.3 Typical atrial flutter (principal); I48.19 Other persistent atrial fibrillation; I10 Essential (primary) hypertension; I27.20 Pulmonary hypertension, unspecified; G20 Parkinson's disease; T50.906A Underdosing of unspecified drugs, medicaments and biological substances, initial encounter; Z91.138 Patient's unintentional underdosing of medication regimen for other reason; C55 Malignant neoplasm of uterus, part unspecified; M17.0 Bilateral primary osteoarthritis of knee; M19.012 Primary osteoarthritis, left shoulder; M19.011 Primary osteoarthritis, right shoulder; Z96.612 Presence of left artificial shoulder joint; Z86.79 Personal history of other diseases of the circulatory system; Z79.01 Long term (current) use of anticoagulants; Z98.890 Other specified postprocedural states; Z79.899 Other long term (current) drug therapy; Z88.8 Allergy status to other drugs, medicaments and biological substances; I25.2 Old myocardial infarction; Z87.891 Personal history of nicotine dependence; Z80.8 Family history of malignant neoplasm of other organs or systems; Z82.49 Family history of ischemic heart disease and other diseases of the circulatory system
CPT/HCPCS: 36415; 80053; 83735; 84484; 85025; 85610; 85730; 93005; 93306; 93308; 96365; 96366; 96368; 99291

== ENCOUNTER → 2023-07-06 | Outpatient (CLI) | payer MEDICARE ==
--- NOTE | 2023-07-07 12:49 | MM ---
Reason for Exam: Screening (asymptomatic). Last mammogram was performed 8 year(s) and 4 month(s) ago. Patient History: Menarche at age 12. First Full-Term at age 20. Postmenopausal. 1980, Benign Excisional Biopsy on the right side. Risk Values: Randee 5 year model risk: 1.8%. NCI Lifetime model risk: 5.9%. Prior Study Comparison: 03/21/2015 Bilateral Screening Mammogram, [facility]. 04/06/2015 Left Diagnostic Mammogram, [facility]. 01/10/2016 Left Diagnostic Mammogram, [facility]. Tissue Density: There are scattered areas of fibroglandular density. Findings: Analyzed By CAD. There is no suspicious group of microcalcifications or new suspicious mass in either breast. Overall Assessment: Negative, BI-RAD 1 Management: Screening Mammogram of both breasts in 1 year. . Patient should continue monthly self-breast exams. A clinical breast exam by your physician is recommended on an annual basis. This exam should not preclude additional follow-up of suspicious palpable abnormalities. Note on Randee scores and lifetime risk: 1. A Randee score greater than 3% is considered moderate risk. If this is the case, consider specialist referral to assess eligibility for a risk reducing agent. 2. If overall lifetime risk for the development of breast cancer is 20% or higher, the patient may qualify for future screening with alternating mammogram and breast MRI. Electronically signed and approved by: Yoav Sheridan M.D. Radiologis
== END | disposition home or self-care (01) ==
LOC: RADMAMWWP 11:32
PROVIDERS: ATTEND Family Medicine
DX: Z12.31 Encounter for screening mammogram for malignant neoplasm of breast (principal); Z78.0 Asymptomatic menopausal state
CPT/HCPCS: 77063; 77067

== ENCOUNTER 2024-09-24 00:24 | Inpatient (IN) | payer MEDICARE ==
--- NOTE | 2024-09-24 00:56 | ED ---
General Adult HPI - General Chief complaint: Chest Pain Stated complaint: Chest Pain Time Seen by Provider: 09/24/24 00:35 Source: patient, EMS, RN notes reviewed, old records reviewed Mode of arrival: EMS - History of Present Illness Initial comments: 68-year-old female presents emergency department complaining of chest pain states started suddenly at approximately. 11:50 PM. Has a history of atrial fibrillation on Eliquis and metoprolol. Also has a history of broken heart cardiomyopathy. No history of cardiac stents. Denies any nausea or vomiting. Denies any diaphoresis. States the chest discomfort is a pressure-like sensation that is worse with movements going across both sides of her ribs and around her flanks traveling along the rib spaces. Denies any obvious injuries or stretching. Pain is worse with movement. Denies shortness of breath. Den ies fevers or chills or cough. Has no abdominal complaints. States symptoms started shortly after she took her evening medications. Presents for further evaluation at this time. Also has a history of Parkinson's disease.Patient received 324 mg of aspirin from EMS. - Related Data Home Medications Medication Instructions Recorded Confirmed Metoprolol Tartrate [Lopressor] 25 mg PO BID 07/31/20 12/06/22 Apixaban [Eliquis] 5 mg PO BID 06/01/21 12/06/22 Carbidopa-Levodopa 25-100 mg 1.5 tab PO TID@0800,1230,1830 06/01/21 12/06/22 [Sinemet 25-100 mg] Propafenone [Rythmol] 150 mg PO BID 10/23/21 12/06/22 Carbidopa-Levodopa ER 50-200Mg 1 tab PO HS 12/06/22 12/06/22 [Sinemet CR 50-200 mg] Rasagiline Mesylate [Azilect] 1 mg PO DIRECTED 12/06/22 12/06/22 Allergies Allergy/AdvReac Type Severity Reaction Status Date / Time cobalt Allergy Rash/Hives Verified 09/24/24 00:30 ferrous sulfate Allergy Rash/Hives Verified 09/24/24 00:30 nickel Allergy Rash/Hives Verified 09/24/24 00:30 norfloxacin [From Noroxin] Allergy Rash/Hives Verified 09/24/24 00:30 codeine AdvReac Nausea & Verified 09/24/24 00:30 Vomiting heparin AdvReac see comment Verified 09/24/24 00:30 Review of Systems ROS Statement: Those systems with pertinent positive or pertinent negative responses have been documented in the HPI. Review of Systems: CONST: Denies fever EYES: Denies blurry vision ENT: Denies nasal congestion C/V: Endorses chest pain RESP: Denies shortness of breath GI: Denies abdominal pain : Denies dysuria SKIN: Denies rash. MSK: Denies joint pain. NEURO: Denies headache ROS Other: All systems not noted in ROS Statement are negative. Past Medical History Past Medical History: Atrial Fibrillation, Myocardial Infarction (ND) Additional Past Medical History / Comment(s): 11/14/14 ADMITTED WITH CHEST DISCOMFORT. 08/14/14 Pt presented to [facility] ER with complaints of irregular heart beat this AM. She did have some SOB and palpitations. Other HX: Afib with RVR with admission 08/06/13 here at [facility]. 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 History of Any Multi-Drug Resistant Organisms: None Reported Past Surgical History: Adenoidectomy, Breast Surgery, Cardiac Ablation, Section, Cholecystectomy, Heart Catheterization, Tonsillectomy Additional Past Surgical History / Comment(s): Left total shoulder surgery. R knee arthroscopy x 4, 2 C-Sections, R breast bx-benign,cataracts Past Anesthesia/Blood Transfusion Reactions: Motion Sickness Additional Past Anesthesia/Blood Transfusion Reaction / Comment(s): NAUSEA FROM ANESTHESIA. NO REACTIONS FROM BLOOD. Past Psychological History: No Psychological Hx Reported Smoking Status: Former smoker Past Alcohol Use History: Occasional Past Drug Use History: None Reported - Past Family History Father Family Medical History: AFIB, Vascular Disorder Mother Family Medical History: Cancer, Dementia, Hypertension Additional Family Medical History / Comment(s): Mother had a RBBB.MELANOMA Brother(s) Family Medical History: AFIB Additional Family Medical History / Comment(s): Pt has 4 brothers with AFIB. General Exam - General Exam Comments Initial Comments: General: Appears in no acute distress. HEAD: Normal with no signs of head trauma. EYES: EOMI ENT: Hearing grossly intact, normal oropharynx. RESPIRATORY: Clear breath sounds bilaterally. No wheezes, rales, or rhonchi. C/V: Regular rate and rhythm. S1 and S2 auscultated, no edema, peripheral pulses 2+ and intact throughout ABD: Abd is soft, nontender, nondistended EXT: Normal range of motion, no obvious deformity. Chest pain is reproducible on palpation over bilateral ribs into the axillary spaces. Worse with movements of the upper extremities as well as twisting of the torso. No obvious deformities palpated. SKIN: No rashes or lesions observed on exposed skin. NEURO: Alert and oriented x 4. Course Vital Signs 09/24/24 09/24/24 00:27 05:07 Temperature 97.3 F L 97.1 F L Pulse Rate 71 68 Respiratory 18 15 Rate Blood Pressure 138/82 139/72 O2 Sat by Pulse 97 96 Oximetry Medical Decision Making - Medical Decision Making Was pt. sent in by a medical professional or institution (ELIAS Almazan, SENIOR OUTSIDE SALES REPRESENTATIVE, urgent care, hospital, or fdc...) When possible be specific @ -No Did you speak to anyone other than the patient for history (EMS, parent, family, police, friend...)? What history was obtained from this source @ -No Did you review nursing and triage notes (agree or disagree)? Why? @ -I reviewed and agree with nursing and triage notes Were old charts reviewed (outside hosp., previous admission, EMS record, old EKG, old radiological studies, urgent care reports/EKG's, fdc records)? Report findings @ -Reviewed prior EKGs from May and September 2021 as well as November 2022 with no significant acute changes when compared with today's EKG. Differential Diagnosis (chest pain, altered mental status, abdominal pain women, abdominal pain men, vaginal bleeding, weakness, fever, dyspnea, syncope, headache, dizziness, GI bleed, back pain, seizure, CVA, palpatations, mental health, musculoskeletal)? @ -Differential Chest Pain: Stable Angina, Unstable Angina, STEMI, NSTEMI Aortic Dissection, Pneumothorax, Musculoskeletal, Esophageal Spasm GERD, Cholecystitis, Pancreatitis, Zoster, this is not meant to be an all-inclusive list. EKG interpreted by me (3pts min.). @ -As above X-rays interpreted by me (1pt min.). @ -Chest x-ray shows no obvious acute cardiopulmonary process. CT interpreted by me (1pt min.). @ -CT abdomen pelvis shows no obvious acute intra-abdominal process to explain her current symptoms. U/S interpreted by me (1pt. min.). @ -None done What testing was considered but not performed or refused? (CT, X-rays, U/S, labs)? Why? @ -None What meds were considered but not given or refused? Why? @ -I recommended heparin therapy be initiated when patient's troponin increased however she declined and did not want initiated at that time. She is on Eliquis. This will be ordered for the morning. Did you discuss the management of the patient with other professionals (professionals i.e. , PA, SENIOR OUTSIDE SALES REPRESENTATIVE, lab, RT, psych nurse, social insurance specialist, aircraft engine mechanic overhaul, teacher, chief risk officer, case briefer)? Give summary @ -I discussed the case with Dr. Owen who accepted the admission. Was smoking cessation discussed for >3mins.? @ -No Was critical care preformed (if so, how long)? @ -yes, 40 minutes Were there social determinants of health that impacted care today? How? (Homelessness, low income, unemployed, alcoholism, drug addiction, transportati on, low edu. Level, literacy, decrease access to med. care, usp, rehab)? @ -No Was there de-escalation of care discussed even if they declined (Discuss DNR or withdrawal of care, Hospice)? DNR status @ -No What co-morbidities impacted this encounter? (DM, HTN, Smoking, COPD, CAD, Cancer, CVA, ARF, Chemo, Hep., AIDS, mental health diagnosis, sleep apnea, morbid obesity)? @ -Atrial fibrillation, previous cardiomyopathy Was patient admitted / discharged? Hospital course, mention meds given and route, prescriptions, significant lab abnormalities, going to OR and other pertinent info. @ -Patient presents emergency department complaining of acute onset of chest pain. Does seem to be more of a chest wall discomfort. He is already on blood thinners. Has no other symptoms. Pain is worse with movements. Vitals are within acceptable limits. We we will obtain cardiac workup. Patient admi nistered 1 nitroglycerin tablet to see if it has any effect on the pain. Also start on 1 L fluid bolus. Patient already received 324 mg of aspirin from EMS. EKG shows no signs of acute ischemia. Nonspecific ST segment T wave abnormalities which do appear chronic.Imaging negative for any obvious acute process. Labs are remarkable for an undetectable troponin. Mildly elevated lipase. On reevaluation, patient is feeling improved. She will be given Tylenol. We will obtain CT abdomen pelvis after discussion. CT abdomen pelvis shows no obvious acute process. At this time I discussed with the patient. I did offer admission however she would like to go home. We decided to obtain second troponin prior to disposition plan. She was in agreement this plan. Second EKG was obtained and showed no obvious acute process. The chronic nonspecific ST segment T wave abnormalities are present that were seen from EKGs from 2021 and 2022. Second troponin was elevated at 0.397. I updated patient. . She will be kept n.p.o. for the time being for cardiology evaluation. No significant discomfort at this time.Declines any form of analgesia medication. I did recommend that we initiate heparin therapy for NSTEMI however patient declines at this time. She states she has had it before and is made her nauseous. She would like to talk to cardiology prior to initiation. She did take her Eliquis last night prior to arrival. States she has not missed any doses of her Eliquis. I discussed the case with Dr. Owen who accepted the admission. Undiagnosed new problem with uncertain prognosis? @ -No Drug Therapy requiring intensive monitoring for toxicity (Heparin, Nitro, Insulin, Cardizem)? @ -No Were any procedures done? @ -No Diagnosis/symptom? @ -NSTEMI Acute, or Chronic, or Acute on Chronic? @ -Acute Uncomplicated (without systemic symptoms) or Complicated (systemic symptoms)? @ -Complicated Side effects of treatment? @ -None Exacerbation, Progression, or Severe Exacerbation] @ -No Poses a threat to life or bodily function? @ -Potentially, yes - Lab Data Result diagrams: 09/24/24 00:45 09/24/24 00:45 Lab Results 09/24/24 09/24/24 09/24/24 Range/Units 00:45 00:45 00:45 WBC 6.05 (4.50-10.00) 10*3/uL RBC 3.98 L (4.10-5.20) 10*6/uL Hgb 12.5 (12.0-15.0) g/dL Hct 38.4 (37.2-46.3) % MCV 96.5 (80.0-97.0) fL MCH 31.4 (27.0-32.0) pg MCHC 32.6 (32.0-37.0) g/dL Plt Count 177 (140-440) 10*3/uL MPV 11.7 (9.5-12.2) fL Immature Gran % (Auto) 0.2 % Neutrophils % 52.4 % Lymphocytes % 32.7 % Monocytes % 11.1 % Eosinophils % 3.1 % Basophils % 0.5 % Immature Gran # 0.01 (0.00-0.04) 10*3/uL Neutrophils # 3.17 (1.80-7.70) 10*3/uL Lymphocytes # 1.98 (0.90-5.00) 10*3/uL Monocytes # 0.67 (0.20-1.00) 10*3/uL Eosinophils # 0.19 (0.04-0.35) 10*3/uL Basophils # 0.03 (0.00-0.10) 10*3/uL PT 10.6 (10.0-12.5) sec INR 0.9 (<1.2) APTT 26.6 (22.0-30.0) sec Sodium 136 L (137-145) mmol/L Potassium 3.9 (3.5-5.1) mmol/L Chloride 99 (98-107) mmol/L Carbon Dioxide 27 (22-30) mmol/L Anion Gap 10 mmol/L BUN 22 H (7-17) mg/dL Creatinine 0.62 (0.52-1.04) mg/dL Est GFR (CKD-EPI)AfAm >90 (>60 ml/min/1.73 sqM) Est GFR (CKD-EPI)NonAf >90 (>60 ml/min/1.73 sqM) Glucose 99 (74-99) mg/dL Calcium 9.9 (8.4-10.2) mg/dL Magnesium 1.6 (1.6-2.3) mg/dL Total Bilirubin 0.5 (0.2-1.3) mg/dL AST 15 (14-36) U/L ALT <6 (4-34) U/L Alkaline Phosphatase 102 (38-126) U/L Troponin I (0.000-0.034) ng/mL Total Protein 6.7 (6.3-8.2) g/dL Albumin 4.2 (3.5-5.0) g/dL Lipase 458 H (23-300) U/L 09/24/24 09/24/24 Range/Units 00:45 04:50 WBC (4.50-10.00) 10*3/uL RBC (4.10-5.20) 10*6/uL Hgb (12.0-15.0) g/dL Hct (37.2-46.3) % MCV (80.0-97.0) fL MCH (27.0-32.0) pg MCHC (32.0-37.0) g/dL Plt Count (140-440) 10*3/uL MPV (9.5-12.2) fL Immature Gran % (Auto) % Neutrophils % % Lymphocytes % % Monocytes % % Eosinophils % % Basophils % % Immature Gran # (0.00-0.04) 10*3/uL Neutrophils # (1.80-7.70) 10*3/uL Lymphocytes # (0.90-5.00) 10*3/uL Monocytes # (0.20-1.00) 10*3/uL Eosinophils # (0.04-0.35) 10*3/uL Basophils # (0.00-0.10) 10*3/uL PT (10.0-12.5) sec INR (<1.2) APTT (22.0-30.0) sec Sodium (137-145) mmol/L Potassium (3.5-5.1) mmol/L Chloride (98-107) mmol/L Carbon Dioxide (22-30) mmol/L Anion Gap mmol/L BUN (7-17) mg/dL Creatinine (0.52-1.04) mg/dL Est GFR (CKD-EPI)AfAm (>60 ml/min/1.73 sqM) Est GFR (CKD-EPI)NonAf (>60 ml/min/1.73 sqM) Glucose (74-99) mg/dL Calcium (8.4-10.2) mg/dL Magnesium (1.6-2.3) mg/dL Total Bilirubin (0.2-1.3) mg/dL AST (14-36) U/L ALT (4-34) U/L Alkaline Phosphatase (38-126) U/L Troponin I <0.012 0.397 H* (0.000-0.034) ng/mL Total Protein (6.3-8.2) g/dL Albumin (3.5-5.0) g/dL Lipase (23-300) U/L - EKG Data -: EKG Interpreted by Me EKG Comments: 12-lead Electrocardiogram Interpretation Note EKG was reviewed and interpreted by myself. 12-lead ECG performed at 0036 is interpreted by me as revealing normal sinus rhythm at a rate of 63 beats per minute. [place] is normal. [place] interval is 177 ms, QRS duration is 122 ms, QTc is 397 ms.. There were no obvious acute ST or T wave abnormalities to suggest myocardial ischemia or injury. Nonspecific ST segment and T wave abnormalities present seen on prior EKGs including T wave inversions in inferior leads and lateral leads. These are seen on prior EKGs from May 2021 as well as Se pt2022 and September 2021.. R wave progression across the precordium was satisfactory. By my interpretation this EKG is non-diagnostic for acute ischemia. 12-lead Electrocardiogram Interpretation Note EKG was reviewed and interpreted by myself. 12-lead ECG performed at 0305 is interpreted by me as revealing normal sinus rhythm at a rate of 68 beats per minute. [place] is normal. [place] interval is 195 ms, QRS durations 120 ms, QTc is [address] segment T wave abnormality seen in prior EKGs as well as unchanged from earlier today.. There were no obvious acute ST or T wave abnormalities to suggest myocardial ischemia or injury. R wave progression across the precordium was satisfactory. By my interpretation this EKG is non- diagnostic for acute ischemia. Critical Care Time Critical Care Time: Yes Total Critical Care Time: 40 Disposition Clinical Impression: NSTEMI (non-ST elevated myocardial infarction) Disposition: ADMITTED IP TO THIS HOSP Condition: Stable Referrals: Theresa Pires MD [Primary Care Provider] - 1-2 days Time of Disposition: 05:40
[2024-09-24 01:00] LABS: Basophils # (A) 0.03 10*3/uL (0.00-0.10); Basophils % (A) 0.5 %; Eosinophils # (A) 0.19 10*3/uL (0.04-0.35); Eosinophils % (A) 3.1 %; HCT 38.4 % (37.2-46.3); HGB 12.5 g/dL (12.0-15.0); Lymphocytes # (A) 1.98 10*3/uL (0.90-5.00); Lymphocytes % (A) 32.7 %; MCH 31.4 pg (27.0-32.0); MCHC 32.6 g/dL (32.0-37.0); MCV 96.5 fL (80.0-97.0); Monocytes # (A) 0.67 10*3/uL (0.20-1.00); Monocytes % (A) 11.1 %; Neutrophils # (A) 3.17 10*3/uL (1.80-7.70); Neutrophils % (A) 52.4 %; Platelet Count 177 10*3/uL (140-440); RBC 3.98 10*6/uL (4.10-5.20); RDW 14.2 % (11.5-14.5); WBC 6.05 10*3/uL (4.50-10.00)
[2024-09-24 01:22] LABS: ALT <6 U/L (4-34); AST 15 U/L (14-36); African American GFR (CKD) >90 (>60 ml/min/1.73 sqM); Albumin 4.2 g/dL (3.5-5.0); Alkaline Phosphatase 102 U/L (38-126); Anion Gap 10 mmol/L; Blood Urea Nitrogen 22 mg/dL (7-17); Calcium 9.9 mg/dL (8.4-10.2); Carbon Dioxide 27 mmol/L (22-30); Chloride 99 mmol/L (98-107); Glucose 99 mg/dL (74-99); Lipase 458 U/L (23-300); Magnesium 1.6 mg/dL (1.6-2.3); Non-African American GFR(CKD) >90 (>60 ml/min/1.73 sqM); Potassium 3.9 mmol/L (3.5-5.1); Sodium 136 mmol/L (137-145); Total Protein 6.7 g/dL (6.3-8.2)
[2024-09-24 01:31] LABS: INR 0.9 (<1.2); Partial Thromboplastin Time 26.6 sec (22.0-30.0); Prothrombin Time 10.6 sec (10.0-12.5)
[2024-09-24] MEDS: SODIUM CHLORIDE 0.9% 1,000 ML IV STA (01:37)
[2024-09-24] MEDS: NITROGLYCERIN SL TABS 0.4 MG TAB SUBLINGUAL STA (01:37)
[2024-09-24] MEDS: ACETAMINOPHEN TAB 500 MG TAB PO STA (02:44)
[2024-09-24] MEDS: PANTOPRAZOLE 40 MG/10 ML VIAL IVP STA (02:46)
--- NOTE | 2024-09-24 02:47 | XR ---
EXAM: XR Chest, 2 Views CLINICAL HISTORY: ITS.REASON XR Reason: Chest Pain TECHNIQUE: Frontal and lateral views of the chest. COMPARISON: No relevant prior studies available. FINDINGS: Lungs: Unremarkable. No consolidation. Pleural space: Unremarkable. No pneumothorax. Heart: Unremarkable. No cardiomegaly. Mediastinum: Unremarkable. Bones/joints: Unremarkable. Upper abdomen: Diverticulosis, without acute diverticulitis. No small bowel obstruction. No free air. Cholecystectomy. Other findings: Bilateral parapelvic cysts. IMPRESSION: Diverticulosis, without acute diverticulitis. No small bowel obstruction. No free air.
--- NOTE | 2024-09-24 04:37 | CT ---
EXAM: CT Abdomen and Pelvis With Intravenous Contrast CLINICAL HISTORY: ITS.REASON CT Reason: lower chest pain/abd pain. elevated lipase TECHNIQUE: Axial computed tomography images of the abdomen and pelvis with intravenous contrast. CTDI is 49.1 mGy and DLP is 2299.4 mGy-cm. This CT exam was performed using one or more of the following dose reduction techniques: automated exposure control, adjustment of the mA and/or kV according to patient size, and/or use of iterative reconstruction technique. COMPARISON: No relevant prior studies available. FINDINGS: Lung bases: Unremarkable. No mass. No consolidation. ABDOMEN: Liver: Hepatic steatosis. Right hepatic cyst measures 1.3 cm. Gallbladder and bile ducts: Cholecystectomy. No ductal dilation. Pancreas: Unremarkable. No mass. No ductal dilation. Spleen: Unremarkable. No splenomegaly. Adrenals: Unremarkable. No mass. Kidneys and ureters: Bilateral parapelvic cysts. No hydronephrosis. Stomach and bowel: Diverticulosis, without acute diverticulitis. No small bowel obstruction. No free air. PELVIS: Appendix: No findings to suggest acute appendicitis. Bladder: Unremarkable. No mass. Reproductive: Unremarkable as visualized. ABDOMEN and PELVIS: Intraperitoneal space: See above. Bones/joints: No acute fracture. No dislocation. Soft tissues: Unremarkable. Vasculature: Unremarkable. No abdominal aortic aneurysm. Lymph nodes: Unremarkable. No enlarged lymph nodes. IMPRESSION: 1. Hepatic steatosis. 2. Cholecystectomy. 3. Diverticulosis, without acute diverticulitis. No small bowel obstruction. No free air.
[2024-09-24] MEDS ORDERED: NALOXONE 0.4 MG/ML 1 ML VIAL IV PRN ×2 (04:41→06:00)
[2024-09-24] MEDS ORDERED: ONDANSETRON 4 MG/2 ML VIAL IVP PRN ×2 (04:41→06:00)
[2024-09-24] MEDS: SODIUM CHLORIDE 0.9% 1,000 ML IV SCH (06:40)
[2024-09-24] MEDS ORDERED: APIXABAN 5 MG TAB PO SCH (09:00)
[2024-09-24] MEDS ORDERED: PROPAFENONE 150 MG TAB PO SCH (09:00)
--- NOTE | 2024-09-24 09:08 | P.CRDCN ---
History of Present Illness Consult date: 09/24/24 Reason for Consult (text): NSTEMI History of present illness: This is Rashi Mcdaniel NP, I'm dictating on behalf of Dr. Julien's H&P and A&P The patient was interviewed and examined. HPI: Patient is a pleasant 68-year-old female with a past medical history of atrial fibrillation, GA, Parkinson's disease, cholecystectomy, tonsillectomy, who presented to the hospital with complaints of chest pain. Patient reported that the pain started around 11:50 PM last night, and denied associated nausea, vomiting, diaphoresis, shortness of breath. She reports the pain was a pressure-like sensation that got worse with movement radiating across both sides of her ribs and around to her back. Due to the symptoms and her past history jaylen e presented to the hospital for evaluation. Initial lab work was negative for any significant abnormality, including a negative troponin. EKG demonstrated normal sinus mechanism with nonspecific ST and T wave abnormalities which are chronic. Patient wanted to go home, but emergency department physician requested she wait for second troponin, afterwards it did come back at 0.397. Repeat EKG was similar to previous. Cardiology was consulted due to the elevated troponin. Patient reports that her symptoms are resolved as of this morning. She refused heparin due to a previous poor reaction to it, however we are unsure if this is related to the medication or the situation. Patient has had a ablation for A-fib, and would have had heparin during the procedure. Patient is also quite concerned about the possibility of a cardiac cath with stent placement. She reports that she is allergic to multiple metals, and is unsure if she will be able to receive a stent or not. We will have to discuss with Dr. Rock what exact stents that we carry here in the hospital and if it is feasible to place 1 if needed. We advised the patient to not move forward with any interventions until she is able to have a discussion about the metal contents of the stents. ROS: [No fever, chills, or rigors] [no cough, phlegm, or expectoration] [no nausea, vomiting, or diarrhea] [no hematuria, dysuria] [no musculoskelatal complaints] [no strokes or seizures] [no skin lesions] EXAMINATION: GENERAL: Well-appearing, well-nourished and in no acute distress. NECK: Supple without JVD or thyromegaly. LUNGS: Breath sounds clear to auscultation bilaterally. Respiration equal and unlabored. No wheezes, rales or rhonchi. HEART: Regular rate and rhythm without murmurs, rubs or gallops. S1 and S2 heard. EXTREMITIES: Normal range of motion, no edema. No clubbing or cyanosis. Peripheral pulses intact and strong. REVIEW OF LABS, ECG & MEDICAL DATA: LABS: White count 6.0, hemoglobin 12.5, platelets 177, sodium 136, potassium 3.9, chloride 99, BUN 22, creatinine 0.62, magnesium 1.6, troponin less than 0.012, 0.397, lipase 458. EKG: Normal sinus rhythm with nonspecific ST changes in aVL, V3, V5, V6, with nonspecific T wave inversions in V1. IMAGING: Chest x-ray dated 09/24/2024 demonstrates diverticulosis, without acute diverticulitis, no small bowel obstruction, no free air. CT of the abdomen and pelvis dated 09/24/2024 demonstrates hepatic steatosis, cholecystectomy, diverticulosis, without acute diverticulitis, no small bowel obstruction, no free air. VITALS: Temp 97.1, pulse 68, respirations 15, blood pressure 139/72, O2 saturation 96% on room air IMPRESSION: 1. NSTEMI 2. History A-fib, post ablation at [facility] PLAN: Start Lovenox therapeutic dosing. Obtain echocardiogram. Stop propafenone. Continue metoprolol. Stop Eliquis while on Lovenox. Patient needs cardiac catheterization due to high suspicion for myocardial damage. This can be done with Dr. Rock on Thursday. Patient will need to discuss with Dr. Henri parsons the metal contents of the stents as she has multiple allergies to metal. Thank you for the consult and allowing us to participate in the care of this patient. Past Medical History Past Medical History: Atrial Fibrillation, Myocardial Infarction (GA) Additional Past Medical History / Comment(s): 11/14/14 ADMITTED WITH CHEST DISCOMFORT. 08/14/14 Pt presented to [facility] ER with complaints of irregular heart beat this AM. She did have some SOB and palpitations. Other HX: Afib with RVR with admission 08/06/13 here at [facility]. 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 History of Any Multi-Drug Resistant Organisms: None Reported Past Surgical History: Adenoidectomy, Breast Surgery, Cardiac Ablation, Section, Cholecystectomy, Heart Catheterization, Tonsillectomy Additional Past Surgical History / Comment(s): Left total shoulder surgery. R knee arthroscopy x 4, 2 C-Sections, R breast bx-benign,cataracts Past Anesthesia/Blood Transfusion Reactions: Motion Sickness Additional Past Anesthesia/Blood Transfusion Reaction / Comment(s): NAUSEA FROM ANESTHESIA. NO REACTIONS FROM BLOOD. Past Psychological History: No Psychological Hx Reported Smoking Status: Former smoker Past Alcohol Use History: Occasional Past Drug Use History: None Reported - Past Family History Father Family Medical History: AFIB, Vascular Disorder Mother Family Medical History: Cancer, Dementia, Hypertension Additional Family Medical History / Comment(s): Mother had a RBBB.MELANOMA Brother(s) Family Medical History: AFIB Additional Family Medical History / Comment(s): Pt has 4 brothers with AFIB. Medications and Allergies Home Medications Medication Instructions Recorded Confirmed Type Metoprolol Tartrate [Lopressor] 25 mg PO BID 07/31/20 12/06/22 History Apixaban [Eliquis] 5 mg PO BID 06/01/21 12/06/22 History Carbidopa-Levodopa 25-100 mg 1.5 tab PO TID@0800,1230,1830 06/01/21 12/06/22 History [Sinemet 25-100 mg] Propafenone [Rythmol] 150 mg PO BID 10/23/21 12/06/22 History Carbidopa-Levodopa ER 50-200Mg 1 tab PO HS 12/06/22 12/06/22 History [Sinemet CR 50-200 mg] Allergies Allergy/AdvReac Type Severity Reaction Status Date / Time cobalt Allergy Rash/Hives Verified 09/24/24 09:01 ferrous sulfate Allergy Rash/Hives Verified 09/24/24 09:01 nickel Allergy Rash/Hives Verified 09/24/24 09:01 norfloxacin [From Noroxin] Allergy Rash/Hives Verified 09/24/24 09:01 codeine AdvReac Nausea & Verified 09/24/24 09:01 Vomiting heparin AdvReac see comment Verified 09/24/24 09:01 Physical Exam Vitals: Vital Signs Temp Pulse Resp BP Pulse Ox 09/24/24 05:07 97.1 F L 68 15 139/72 96 09/24/24 00:27 97.3 F L 71 18 138/82 97 Intake and Output 09/23/24 09/24/24 09/24/24 22:59 06:59 14:59 Other: Weight 104.326 kg Results 09/24/24 00:45 09/24/24 00:45 Cardiac Enzymes 09/24/24 09/24/24 09/24/24 Range/Units 00:45 00:45 04:50 AST 15 (14-36) U/L Troponin I <0.012 0.397 H* (0.000-0.034) ng/mL Coagulation 09/24/24 Range/Units 00:45 PT 10.6 (10.0-12.5) sec APTT 26.6 (22.0-30.0) sec CBC 09/24/24 Range/Units 00:45 WBC 6.05 (4.50-10.00) 10*3/uL RBC 3.98 L (4.10-5.20) 10*6/uL Hgb 12.5 (12.0-15.0) g/dL Hct 38.4 (37.2-46.3) % Plt Count 177 (140-440) 10*3/uL Comprehensive Metabolic Panel 09/24/24 Range/Units 00:45 Sodium 136 L (137-145) mmol/L Potassium 3.9 (3.5-5.1) mmol/L Chloride 99 (98-107) mmol/L Carbon Dioxide 27 (22-30) mmol/L BUN 22 H (7-17) mg/dL Creatinine 0.62 (0.52-1.04) mg/dL Glucose 99 (74-99) mg/dL Calcium 9.9 (8.4-10.2) mg/dL AST 15 (14-36) U/L ALT <6 (4-34) U/L Alkaline Phosphatase 102 (38-126) U/L Total Protein 6.7 (6.3-8.2) g/dL Albumin 4.2 (3.5-5.0) g/dL Current Medications Generic Name Dose Route Start Last Admin Trade Name Freq PRN Reason Stop Dose Admin Acetaminophen 650 mg 09/24/24 06:00 Acetaminophen Tab 325 Mg Tab PO Q6HR PRN Mild Pain or Fever > 100.5 Carbidopa/Levodopa 1.5 each 09/24/24 08:00 Carbidopa-Levodopa 25-100 Mg 1 Each Tab PO TID@0800,1230,1830 [facility] Enoxaparin Sodium 100 mg 09/24/24 09:00 Enoxaparin 100 Mg/Ml Syringe SQ Q12HR [facility] Sodium Chloride 1,000 mls @ 130 mls/hr 09/24/24 06:00 09/24/24 06:40 Saline 0.9% IV 130 mls/hr .[id number] VANE Administration Metoprolol Tartrate 25 mg 09/24/24 09:00 Metoprolol Tartrate 25 Mg Tab PO BID VANE Naloxone HCl 0.2 mg 09/24/24 06:00 Naloxone 0.4 Mg/Ml 1 Ml Vial IV Q2M PRN Opioid Reversal Ondansetron HCl 4 mg 09/24/24 06:00 Ondansetron 4 Mg/2 Ml Vial IVP Q8HR PRN Nausea And Vomiting Intake and Output 09/23/24 09/24/24 09/24/24 22:59 06:59 14:59 Other: Weight 104.326 kg 09/24/24 00:45 09/24/24 00:45
[2024-09-24] MEDS: CARBIDOPA-LEVODOPA 25-100 MG 1 EACH TAB PO SCH (09:29)
[2024-09-24] MEDS: METOPROLOL TARTRATE 25 MG TAB PO SCH (09:30)
[2024-09-24] MEDS: ENOXAPARIN 100 MG/ML SYRINGE SQ SCH (10:48)
[2024-09-24] MEDS: CARBIDOPA-LEVODOPA ER 50-200MG 1 EACH TABLET.ER PO STA (20:49)
[2024-09-24] MEDS ORDERED: CARBIDOPA-LEVODOPA ER 50-200MG 1 EACH TABLET.ER PO SCH (21:00)
--- NOTE | 2024-09-25 01:46 | P.HPIM ---
History of Present Illness H&P Date: 09/24/24 Chief Complaint: Chest pain 68-year-old female with Parkinson's disease and A-fib Last night, while getting ready for bed, the patient experienced an episode of chest pain that started last night felt like pressure like across her chest radiating to the back denies any associated nausea vomiting or profuse sweating or shortness of breath. There have been no further episodes of chest pain since then. The patient denies any current symptoms of fever, chills, or illness. In 2013, the patient reports having had a 'broken heart attack,' though no interventions such as stents or balloons were required. The patient mentions that the cardiomyopathy 'healed itself.' Ablation for atrial fibrillation in the past which resulted in some kind of reaction to heparin drip for which she refused to do that at this time she also informed cardiology that she has allergies to metals and not sure which should be done A-fib stent is needed Patient was seen by cardiology she refused heparin drip due to history of some kind of reaction post ablation of her A-fib review of systems Pertinent positives as noted in HPI. All other systems were reviewed and are negative Cardiovascular: Patient denies current chest pain. Respiratory: No shortness of breath reported. Constitutional: Patient denies fever or chills. Integumentary: No swelling in legs noted. on exam Constitutional: No acute distress, conversant, pleasant Eyes: Anicteric sclerae, moist conjunctiva, Pupils equal round reactive to light ENMT: NC/AT Oropharynx clear, no erythema, or exudates Neck: Supple, no masses, or JVD No carotid bruits No thyromegaly Lungs: Clear to auscultation Clear to percussion Normal respiratory effort, no accessory muscle use Cardiovascular: Heart regular in rate and rhythm, No murmurs, gallops, or rubs No peripheral edema Abdominal: Soft Nontender, no guarding, rebound or rigidity Abdomen moving with respiration Normoactive bowel sounds Extremities: No digital cyanosis No clubbing Pedal pulses intact and symmetrical Radial pulses intact and symmetrical No calf tenderness Psychiatric: Alert and oriented to person, place and time Appropriate affect Neuro Muscles Strength 4/5 in all 4 extremities Sensation to light touch grossly present throughout Cranial nerves II-XII grossly intact Past Medical History Past Medical History: Atrial Fibrillation, Myocardial Infarction (DE) Additional Past Medical History / Comment(s): 11/14/14 ADMITTED WITH CHEST DISCOMFORT. 08/14/14 Pt presented to [facility] ER with complaints of irregular heart beat this AM. She did have some SOB and palpitations. Other HX: Afib with RVR with admission 08/06/13 here at [facility]. Generalized Arthiritis, parkinson disease Last Myocardial Infarction Date:: 2012 History of Any Multi-Drug Resistant Organisms: None Reported Past Surgical History: Adenoidectomy, Breast Surgery, Cardiac Ablation, Section, Cholecystectomy, Heart Catheterization, Tonsillectomy Additional Past Surgical History / Comment(s): Left total shoulder surgery. R k nee arthroscopy x 4, 2 C-Sections, R breast bx-benign,cataracts Past Anesthesia/Blood Transfusion Reactions: Motion Sickness Additional Past Anesthesia/Blood Transfusion Reaction / Comment(s): NAUSEA FROM ANESTHESIA. NO REACTIONS FROM BLOOD. Past Psychological History: No Psychological Hx Reported Additional Psychological History / Comment(s): Pt lives at home with her spouse. She is normally independent. She uses no assistive devices or home care. She drives a car. Smoking Status: Former smoker Past Alcohol Use History: Occasional Additional Past Alcohol Use History / Comment(s): Pt states she started smoking at age 13 yrs and quit in 1995. She smoked approximately 27 yrs. Past Drug Use History: None Reported - Past Family History Father History Unknown: Yes Family Medical History: AFIB, Vascular Disorder Mother Family Medical History: Cancer, Dementia, Hypertension Additional Family Medical History / Comment(s): Mother had a RBBB.MELANOMA Brother(s) History Unknown: Yes Family Medical History: AFIB Additional Family Medical History / Comment(s): Pt has 4 brothers with AFIB. Medications and Allergies Home Medications Medication Instructions Recorded Confirmed Type Metoprolol Tartrate [Lopressor] 12.5 mg PO BID 07/31/20 09/24/24 History Apixaban [Eliquis] 5 mg PO BID 06/01/21 09/24/24 History Carbidopa-Levodopa 25-100 mg 1.5 tab PO TID@0900,1330,1830 06/01/21 09/24/24 History [Sinemet 25-100 mg] Propafenone [Rythmol] 150 mg PO BID 10/23/21 09/24/24 History Carbidopa-Levodopa ER 50-200Mg 1 tab PO HS 12/06/22 09/24/24 History [Sinemet CR 50-200 mg] Allergies Allergy/AdvReac Type Severity Reaction Status Date / Time cobalt Allergy Rash/Hives Verified 09/24/24 09:01 ferrous sulfate Allergy Rash/Hives Verified 09/24/24 09:01 nickel Allergy Rash/Hives Verified 09/24/24 09:01 norfloxacin [From Noroxin] Allergy Rash/Hives Verified 09/24/24 09:01 codeine AdvReac Nausea & Verified 09/24/24 09:01 Vomiting heparin AdvReac see comment Verified 09/24/24 09:01 Physical Exam Vitals: Vital Signs Temp Pulse Pulse Resp BP BP Pulse Ox 09/24/24 19:48 98.1 F 66 18 120/78 97 09/24/24 18:49 64 16 09/24/24 18:14 98.1 F 64 16 119/79 93 L 09/24/24 17:03 68 16 122/71 97 09/24/24 12:29 58 L 16 129/77 96 09/24/24 09:27 67 16 119/63 97 09/24/24 05:07 97.1 F L 68 15 139/72 96 09/24/24 00:27 97.3 F L 71 18 138/82 97 Intake and Output 09/24/24 09/24/24 09/24/24 06:59 14:59 22:59 Intake Total 10 Balance 10 Intake: IV 10 Invasive Line 1 10 Other: Voiding Method Toilet # Voids 4 # Bowel Movements 1 Weight 104.326 kg 104.326 kg Results CBC & Chem 7: 09/24/24 00:45 09/24/24 00:45 Labs: Abnormal Lab Results - Last 24 Hours (Table) 09/24/24 09/24/24 09/24/24 Range/Units 00:45 00:45 04:50 RBC 3.98 L (4.10-5.20) 10*6/uL Sodium 136 L (137-145) mmol/L BUN 22 H (7-17) mg/dL Troponin I 0.397 H* (0.000-0.034) ng/mL Lipase 458 H (23-300) U/L 09/24/24 Range/Units 14:21 RBC (4.10-5.20) 10*6/uL Sodium (137-145) mmol/L BUN (7-17) mg/dL Troponin I 0.341 H* (0.000-0.034) ng/mL Lipase (23-300) U/L Thrombosis Risk Factor Assmnt - Choose All That Apply Any of the Below Risk Factors Present?: Yes Each Factor Represents 1 point: Obesity (BMI >25), Swollen legs (current) Other Risk Factors: Yes Each Risk Factor Represents 2 Points: Age 61-74 years Each Risk Factor Represents 3 Points: Family history of DVT/PE Other congenital or acquired thrombophilia - If yes, enter type in comment: Yes Thrombosis Risk Factor Assessment Total Risk Factor Score: 7 Thrombosis Risk Factor Assessment Level: High Risk Assessment and Plan Assessment: 68-year-old female with Parkinson disease on Eliquis coming in for evaluation of sudden onset chest pain discussed case with ED doctor and accepted the admission for NSTEMI with anticipated length of stay more than 2 midnights . NSTEMI Pain control nitro as needed Morphine 2 mg IV push as needed every 3 hours if needed Cardiology consult Cardiac monitoring Aspirin and statin Lovenox therapeutic dose Troponin slightly elevated Rest of her blood work unremarkable white count 6 hemoglobin 12.5 Sodium 136 potassium 3.9 BUN 22 creatinine 0.6 EKG showed T wave inversions in inferior lateral leads Chronic conditions A-fib status post ablation on Eliquis currently on hold patient was switched to full dose therapeutic Lovenox Parkinson disease resume home medications Full code DVT prophylaxis on therapeutic dose of Lovenox for ACS protocol
[2024-09-25 07:28] LABS: Basophils # (A) 0.03 10*3/uL (0.00-0.10); Basophils % (A) 0.6 %; Eosinophils # (A) 0.14 10*3/uL (0.04-0.35); Eosinophils % (A) 2.8 %; HCT 36.4 % (37.2-46.3); HGB 11.7 g/dL (12.0-15.0); Lymphocytes # (A) 1.65 10*3/uL (0.90-5.00); Lymphocytes % (A) 33.3 %; MCH 32.1 pg (27.0-32.0); MCHC 32.1 g/dL (32.0-37.0); MCV 99.7 fL (80.0-97.0); Monocytes # (A) 0.38 10*3/uL (0.20-1.00); Monocytes % (A) 7.7 %; Neutrophils # (A) 2.74 10*3/uL (1.80-7.70); Neutrophils % (A) 55.4 %; Platelet Count 173 10*3/uL (140-440); RBC 3.65 10*6/uL (4.10-5.20); RDW 14.4 % (11.5-14.5); WBC 4.95 10*3/uL (4.50-10.00)
[2024-09-25 07:48] LABS: ALT <6 U/L (4-34); AST 16 U/L (14-36); African American GFR (CKD) >90 (>60 ml/min/1.73 sqM); Albumin 3.6 g/dL (3.5-5.0); Alkaline Phosphatase 67 U/L (38-126); Anion Gap 6 mmol/L; Blood Urea Nitrogen 13 mg/dL (7-17); Calcium 8.8 mg/dL (8.4-10.2); Carbon Dioxide 25 mmol/L (22-30); Chloride 107 mmol/L (98-107); Glucose 96 mg/dL (74-99); Non-African American GFR(CKD) >90 (>60 ml/min/1.73 sqM); Potassium 4.0 mmol/L (3.5-5.1); Sodium 138 mmol/L (137-145); Total Protein 6.2 g/dL (6.3-8.2)
--- NOTE | 2024-09-25 10:27 | CA ---
Transthoracic Echo Report Name: Leila Azevedo Age: 68 Gender: F : 1955 Exam Date: 09/24/2024 14:30 Exam Location: [facility] Ht (in): 64 Wt (lb): 230 Ordering Physician: Ag Fofana MD Attending/Referring Phys: Service Center Representative Kasey Morales RDCS Procedure CPT: Indications: nstemi Cardiac Hx: Technical Quality: Fair Contrast 1: Definity Total Dose (mL): Contrast 2: Total Dose (mL): MEASUREMENTS (Male / Female) Normal Values 2D ECHO LV Diastolic Diameter PLAX 6.3 cm 4.2 - 5.9 / 3.9 - 5.3 cm LV Systolic Diameter PLAX 4.5 cm IVS Diastolic Thickness 1.1 cm 0.6 - 1.0 / 0.6 - 0.9 cm LVPW Diastolic Thickness 1.2 cm 0.6 - 1.0 / 0.6 - 0.9 cm LV Relative Wall Thickness 0.4 RV Internal Dim ED PLAX 3.1 cm LVOT Diameter 1.9 cm LV Diastolic Volume MOD BP 207.3 cm??? 67 - 155 / 56 - 104 cm??? LV Systolic Volume MOD BP 149.7 cm??? 22 - 58 / 19 - 49 cm??? LV Ejection Fraction MOD BP 27.8 % >= 55 % LV Cardiac Index MOD BP 1790.2 cm???/min???m??? LV Diastolic Volume MOD 4C 214.8 cm??? LV Systolic Volume MOD 4C 140.9 cm??? LV Ejection Fraction MOD 4C 34.4 % LV Cardiac Index MOD 4C 2295.2 cm???/min???m??? LV Diastolic Length 4C 8.6 cm LV Systolic Length 4C 7.8 cm LV Diastolic Volume MOD 2C 209.3 cm??? LV Systolic Volume MOD 2C 155.3 cm??? LV Ejection Fraction MOD 2C 25.8 % LV Cardiac Index MOD 2C 1675.2 cm???/min???m??? LV Diastolic Length 2C 8.9 cm LV Systolic Length 2C 7.4 cm LA Volume 120.1 cm??? 18 - 58 / 22 - 52 cm??? LA Volume Index 54.0 cm???/m??? 16 - 28 cm???/m??? DOPPLER LVOT Peak Velocity 78.0 cm/s LVOT Peak Gradient 2.4 mmHg LVOT Velocity Time Integral 18.2 cm LVOT Stroke Volume 50.3 cm??? LVOT Stroke Volume Index 24.2 ml/m??? LVOT Cardiac Index 1562.3 cm???/min???m??? MV Area PHT 3.5 cm??? Mitral E Point Velocity 64.1 cm/s Mitral A Point Velocity 56.7 cm/s Mitral E to A Ratio 1.1 MV Deceleration Time 217.0 ms MV E' Velocity 2.8 cm/s Mitral E to MV E' Ratio 22.5 FINDINGS Left Ventricle Mildly increased septal wall thickness. Mildly increased posterior wall thickness. Severely increased left ventricular diastolic diameter. Severely increased left ventricular diastolic volume. Severely increased left ventricular systolic volume. Severely decreased left ventricular ejection fraction. Left ventricular ejection fraction is estimated at 35 %. Hypokinetic anterior wall. Terril hypokinetic. Right Ventricle Normal right ventricular size and function. Right Atrium Right atrium not well visualized. Left Atrium Severely increased left atrial volume. Moderately increased left atrial area. Mitral Valve Structurally normal mitral valve. [id number]-xilbup mitral regurgitation. Aortic Valve Trileaflet aortic valve. No aortic stenosis. Trace aortic regurgitation. Tricuspid Valve Structurally normal tricuspid valve. Mild tricuspid regurgitation. Pulmonic Valve Structurally normal pulmonic valve. Trace pulmonic regurgitation. Pericardium No pericardial effusion. Aorta Normal size aortic root and proximal ascending aorta. CONCLUSIONS Reason for test: Abnormal cardiac enzymes, non-Q wave DE Severe LV dysfunction, dilated left ventricle Previewed by: Dr. Abe Julien MD (Electronically Signed) Final Date: 25 September 2024 10:26
--- NOTE | 2024-09-25 11:05 | P.PN ---
Subjective Progress Note Date: 09/25/24 The patient is currently admitted to the hospital with a non-ST elevated myocardial infarction. Plan to undergo coronary angiogram Thursday with primary creative art therapist Dr. Michele. Patient is concerned about content of stent and possible allergic reaction. Patient states she has done well overnight. Patient remains on Lovenox. No difficulty breathing currently. No current chest pain. HEENT: Head is atraumatic, normocephalic. Pupils are equal, round. Sclerae anicteric. Conjunctivae are clear. Mucous membranes of the mouth are moist. Neck is supple. There is no jugular venous distention. No carotid bruit is heard. CHEST EXAMINATION: Lungs are clear to auscultation. No chest wall tenderness is noted on palpation or with deep breathing. HEART EXAMINATION: Heart regular rate and rhythm. S1, S2 heard. No murmurs, gallops or rub. EXTREMITIES: 2+ peripheral pulses with no evidence of peripheral edema and no calf tenderness noted. FINAL ASSESSMENT AND PLAN: Non-ST elevated myocardial infarction History of atrial fibrillation Prior ablation at the [facility] PLAN: N.p.o. after midnight in preparation for coronary angiogram tomorrow with Dr. Rock Discussed potential stent allergy with primary creative art therapist, Dr. Rock at that time I am dictating on behalf of Dr Abe Julien's history/physical and assessment/plan. Objective - Vital Signs Vital signs: Vital Signs Temp 98.1 F 09/25/24 07:44 Pulse 64 09/25/24 07:44 Resp 16 09/25/24 07:44 BP 115/71 09/25/24 07:44 Pulse Ox 98 09/25/24 07:44 FiO2 Intake & Output 09/24/24 09/25/24 09/25/24 18:59 06:59 18:59 Intake Total 10 560 10 Balance 10 560 10 Weight 104.326 kg 104.6 kg Intake: IV 10 20 10 Invasive Line 1 10 20 10 Oral 540 Other: Voiding Method Toilet Toilet Toilet # Voids 4 2 # Bowel Movements 1 - Labs CBC & Chem 7: 09/25/24 06:58 09/25/24 06:58 Labs: Abnormal Lab Results - Last 24 Hours (Table) 09/24/24 09/25/24 09/25/24 Range/Units 14:21 06:58 06:58 RBC 3.65 L (4.10-5.20) 10*6/uL Hgb 11.7 L (12.0-15.0) g/dL Hct 36.4 L (37.2-46.3) % MCV 99.7 H (80.0-97.0) fL MCH 32.1 H (27.0-32.0) pg Troponin I 0.341 H* (0.000-0.034) ng/mL Total Protein 6.2 L (6.3-8.2) g/dL
[2024-09-25] MEDS: METOPROLOL TARTRATE 25 MG TAB PO STA ×3 (12:14→12:47)
--- NOTE | 2024-09-25 13:24 | P.PN ---
Subjective Progress Note Date: 09/25/24 No new complaints. Pain is imprved per pt. Pending [facility] tomorrow - pt concerned about multiple metal allergies and compatability with stents. Gen: In NAD, non-toxic HEENT: normocephalic, atraumatic, hearing acuity is intant, mucous membranes moist CVS: perfusing all extremities well, no pitting edema, Respiratory: symmetric chest expansion, no accessory muscle use, GI: soft, NTTP, ND, : no suprapubic tenderness, no CVA tenderness MSK/Derm: no rashes, cyanosis Neuro: CN II-XII intact, no motor weakness, Psych: cooperative, euthymic mood, judgment and insight is intact Assessment/plan: 68-year-old female with Parkinson disease on Eliquis coming in for evaluation of sudden onset chest pain discussed case with ED doctor and accepted the admission for NSTEMI. . NSTEMI Pain control nitro as needed Morphine 2 mg IV push as needed every 3 hours if needed Cardiology consult Cardiac monitoring Aspirin and statin Lovenox therapeutic dose Troponin slightly elevated Rest of her blood work unremarkable white count 6 hemoglobin 12.5 Sodium 136 potassium 3.9 BUN 22 creatinine 0.6 EKG showed T wave inversions in inferior lateral leads Pending [facility] tomorrow. Chronic conditions A-fib status post ablation on Eliquis currently on hold patient was switched to full dose therapeutic Lovenox Parkinson disease resume home medications Full code DVT prophylaxis on therapeutic dose of Lovenox for ACS protocol Objective - Vital Signs Vital signs: Vital Signs Temp 98.1 F 09/25/24 07:44 Pulse 60 09/25/24 11:49 Resp 16 09/25/24 12:46 BP 104/58 09/25/24 11:49 Pulse Ox 94 L 09/25/24 11:49 FiO2 Intake & Output 09/24/24 09/25/24 09/25/24 18:59 06:59 18:59 Intake Total 10 560 260 Balance 10 560 260 Weight 104.326 kg 104.6 kg Intake: IV 10 20 20 Invasive Line 1 10 20 20 Oral 540 240 Other: Voiding Method Toilet Toilet Toilet # Voids 4 2 1 # Bowel Movements 1 - Labs CBC & Chem 7: 09/25/24 06:58 09/25/24 06:58 Labs: Abnormal Lab Results - Last 24 Hours (Table) 09/24/24 09/25/24 09/25/24 Range/Units 14:21 06:58 06:58 RBC 3.65 L (4.10-5.20) 10*6/uL Hgb 11.7 L (12.0-15.0) g/dL Hct 36.4 L (37.2-46.3) % MCV 99.7 H (80.0-97.0) fL MCH 32.1 H (27.0-32.0) pg Troponin I 0.341 H* (0.000-0.034) ng/mL Total Protein 6.2 L (6.3-8.2) g/dL
[2024-09-25] MEDS: METOPROLOL TARTRATE 50 MG TAB PO SCH (21:11)
[2024-09-26] MEDS: CARBIDOPA-LEVODOPA ER 50-200MG 1 EACH TABLET.ER PO STA (00:44)
[2024-09-26 05:12] LABS: Basophils # (A) 0.03 10*3/uL (0.00-0.10); Basophils % (A) 0.7 %; Eosinophils # (A) 0.13 10*3/uL (0.04-0.35); Eosinophils % (A) 2.9 %; HCT 30.4 % (37.2-46.3); Lymphocytes # (A) 1.40 10*3/uL (0.90-5.00); Lymphocytes % (A) 31.2 %; MCH 32.1 pg (27.0-32.0); MCHC 32.2 g/dL (32.0-37.0); MCV 99.7 fL (80.0-97.0); Monocytes # (A) 0.56 10*3/uL (0.20-1.00); Monocytes % (A) 12.5 %; Neutrophils # (A) 2.36 10*3/uL (1.80-7.70); Neutrophils % (A) 52.5 %; Platelet Count 134 10*3/uL (140-440); RBC 3.05 10*6/uL (4.10-5.20); RDW 14.5 % (11.5-14.5); WBC 4.49 10*3/uL (4.50-10.00)
[2024-09-26 05:30] LABS: African American GFR (CKD) >90 (>60 ml/min/1.73 sqM); Anion Gap 4 mmol/L; Blood Urea Nitrogen 8 mg/dL (7-17); Calcium 8.3 mg/dL (8.4-10.2); Carbon Dioxide 24 mmol/L (22-30); Chloride 108 mmol/L (98-107); Glucose 81 mg/dL (74-99); Magnesium 1.6 mg/dL (1.6-2.3); Non-African American GFR(CKD) >90 (>60 ml/min/1.73 sqM); Potassium 3.9 mmol/L (3.5-5.1); Sodium 136 mmol/L (137-145)
[2024-09-26 05:37] LABS: HGB 9.8 g/dL (12.0-15.0)
[2024-09-26] MEDS: ALPRAZolam 0.25 MG TAB PO STA (05:57)
--- NOTE | 2024-09-26 10:17 | P.PN ---
Subjective Progress Note Date: 09/26/24 The patient was seen and evaluated this morning. She is asymptomatic and hemodynamically stable. The echo showed cardiomyopathy. The plan is to pursue a heart catheterization in the next 24 to 48 hours. The physical examination is remarkable for regular rhythm with a soft systolic murmur and clear breathing sounds bilaterally and no edema was noted in the lower extremities Assessment Acute non-ST ovation myocardial infarction Cardiomyopathy likely to be ischemic Nickel allergy Plan Continue the current medical regimen Continue IV heparin Proceed with coronary angiogram Further recommendation to follow the angiogram Objective - Vital Signs Vital signs: Vital Signs Temp 97.7 F 09/26/24 08:00 Pulse 65 09/26/24 08:00 Resp 20 09/26/24 08:00 BP 109/49 09/26/24 08:00 Pulse Ox 97 09/26/24 08:00 FiO2 Intake & Output 09/25/24 09/26/24 09/26/24 18:59 06:59 18:59 Intake Total 1280 140 Balance 1280 140 Weight 104.4 kg Intake: IV 20 20 Invasive Line 1 20 20 Oral 1260 120 Other: Voiding Method Toilet Toilet # Voids 4 # Bowel Movements 3 - Labs CBC & Chem 7: 09/26/24 04:37 09/26/24 04:37 Labs: Abnormal Lab Results - Last 24 Hours (Table) 09/26/24 09/26/24 Range/Units 04:37 04:37 WBC 4.49 L (4.50-10.00) 10*3/uL RBC 3.05 L (4.10-5.20) 10*6/uL Hgb 9.8 L D (12.0-15.0) g/dL Hct 30.4 L (37.2-46.3) % MCV 99.7 H (80.0-97.0) fL MCH 32.1 H (27.0-32.0) pg Plt Count 134 L (140-440) 10*3/uL Sodium 136 L (137-145) mmol/L Chloride 108 H (98-107) mmol/L Creatinine 0.49 L (0.52-1.04) mg/dL Calcium 8.3 L (8.4-10.2) mg/dL
--- NOTE | 2024-09-26 13:10 | P.PN ---
Subjective Progress Note Date: 09/26/24 No new complaints. LHC deferred until tomorrow. Pt is stable at the moment. Gen: In NAD, non-toxic HEENT: normocephalic, atraumatic, hearing acuity is intant, mucous membranes moist CVS: perfusing all extremities well, no pitting edema, Respiratory: symmetric chest expansion, no accessory muscle use, GI: soft, NTTP, ND, : no suprapubic tenderness, no CVA tenderness MSK/Derm: no rashes, cyanosis Neuro: CN II-XII intact, no motor weakness, Psych: cooperative, euthymic mood, judgment and insight is intact Assessment/plan: 68-year-old female with Parkinson disease on Eliquis coming in for evaluation of sudden onset chest pain discussed case with ED doctor and accepted the admission for NSTEMI. . NSTEMI Pain control nitro as needed Morphine 2 mg IV push as needed every 3 hours if needed Cardiology consult Cardiac monitoring Aspirin and statin Lovenox therapeutic dose Troponin slightly elevated Rest of her blood work unremarkable white count 6 hemoglobin 12.5 Sodium 136 potassium 3.9 BUN 22 creatinine 0.6 EKG showed T wave inversions in inferior lateral leads Pending LHC tomorrow. Echo showed low EF, anterior WMA Chronic conditions A-fib status post ablation on Eliquis currently on hold patient was switched to full dose therapeutic Lovenox Parkinson disease resume home medications Full code DVT prophylaxis on therapeutic dose of Lovenox for ACS protocol Objective - Vital Signs Vital signs: Vital Signs Temp 97.9 F 09/26/24 11:55 Pulse 60 09/26/24 11:55 Resp 18 09/26/24 11:55 BP 146/87 09/26/24 11:55 Pulse Ox 99 09/26/24 11:55 FiO2 Intake & Output 09/25/24 09/26/24 09/26/24 18:59 06:59 18:59 Intake Total 1280 140 Balance 1280 140 Weight 104.4 kg Intake: IV 20 20 Invasive Line 1 20 20 Oral 1260 120 Other: Voiding Method Toilet Toilet # Voids 4 # Bowel Movements 3 - Labs CBC & Chem 7: 09/26/24 04:37 09/26/24 04:37 Labs: Abnormal Lab Results - Last 24 Hours (Table) 06/30/25 06/30/25 Range/Units 04:37 04:37 WBC 4.49 L (4.50-10.00) 10*3/uL RBC 3.05 L (4.10-5.20) 10*6/uL Hgb 9.8 L D (12.0-15.0) g/dL Hct 30.4 L (37.2-46.3) % MCV 99.7 H (80.0-97.0) fL MCH 32.1 H (27.0-32.0) pg Plt Count 134 L (140-440) 10*3/uL Sodium 136 L (137-145) mmol/L Chloride 108 H (98-107) mmol/L Creatinine 0.49 L (0.52-1.04) mg/dL Calcium 8.3 L (8.4-10.2) mg/dL
[2024-09-26] MEDS: LOPERAMIDE 2 MG CAP PO PRN (18:13)
[2024-09-26] MEDS: CARBIDOPA-LEVODOPA ER 50-200MG 1 EACH TABLET.ER PO SCH (20:58)
[2024-09-27] MEDS: ASPIRIN 325 MG TAB PO SCH (09:06)
[2024-09-27] MEDS: DEXTROSE 5% IN WATER 100 ML with AMIODARONE 150 MG IV ONE (10:11)
[2024-09-27] MEDS: AMIODARONE 360 MG in DEXTROSE 5% IN WATER 200 ML IV ONE (10:37)
[2024-09-27] MEDS: LIDOCAINE 1% INJ 10MG/ML (20 ML MDV) SQ ONE ×2 (12:16)
[2024-09-27] MEDS: MIDAZOLAM 2 MG/2 ML VIAL IVP ONE (12:18)
[2024-09-27] MEDS: METOPROLOL TARTRATE 5 MG/5 ML VIAL IVP ONE (12:45)
[2024-09-27] MEDS: IOPAMIDOL-370 100ML BTL INJ ONE (12:46)
[2024-09-27] MEDS: IV FLUID CONTINUATION 1,000 ML IV ONE (12:46)
[2024-09-27] MEDS: HEPARIN SODIUM,PORCINE (1 ML) 2,500 UNIT in SODIUM CHLORIDE 0.9% 250 ML IRRIGATION PRN (12:47)
[2024-09-27] MEDS: HEPARIN SODIUM,PORCINE 10,000 UNIT in SODIUM CHLORIDE 0.9% 1,000 ML IRRIGATION PRN (12:47)
[2024-09-27] MEDS ORDERED: RX INFO: IV CONTRAST WAS GIVEN 1 EACH MISC MISCELLANE PRN (12:51)
[2024-09-27] MEDS: SODIUM CHLORIDE 0.9% 1,000 ML IV SCH (13:19)
[2024-09-27] MEDS: SACUBITRIL/VALSARTAN 24 MG-26 MG TABLET PO SCH (13:35)
--- NOTE | 2024-09-27 14:09 | P.PN ---
Subjective Progress Note Date: 09/27/24 The patient was seen and evaluated this morning. She is asymptomatic and hemodynamically stable. The echo showed cardiomyopathy. The plan is to pursue a heart catheterization in the next 24 to 48 hours. The physical examination is remarkable for regular rhythm with a soft systolic murmur and clear breathing sounds bilaterally and no edema was noted in the lower extremities 09/27/2024 Patient seen and examined. Patient is scheduled for left heart catheterization today with Dr. Rock. Patient is found at this time to be in A-fib with RVR and amiodarone drip started. Patient does have a known nickel allergy and possibility of testing postcardiac catheterization will be addressed. Blood pressure 147/85, pulse ox 99% on room air. The physical examination is remarkable for regular rhythm with a soft systolic murmur and clear breathing sounds bilaterally and no edema was noted in the lower extremities Assessment Acute non-ST ovation myocardial infarction Cardiomyopathy likely to be ischemic Nickel allergy Plan Continue the current medical regimen Start patient on amiodarone drip Proceed with coronary angiogram Further recommendation to follow the angiogram Nurse practitioner note has been reviewed, I agree with documented findings and plan of care. Patient was seen and examined. Objective - Vital Signs Vital signs: Vital Signs Temp 97.7 F 09/27/24 07:46 Pulse 64 09/27/24 07:46 Resp 16 09/27/24 07:46 BP 95/57 09/27/24 07:46 Pulse Ox 98 09/27/24 07:46 FiO2 Intake & Output 09/26/24 09/27/24 09/27/24 18:59 06:59 18:59 Intake Total 2039 Balance 2039 Weight 107.1 kg Intake: Intake, IV Titration 1560 Amount Sodium Chloride 0.9% 1, 1560 000 ml @ 130 mls/hr IV . Q7H42M [facility] Rx#:[id number] Oral 480 Other: Voiding Method Toilet # Voids 2 - Labs CBC & Chem 7: 09/26/24 04:37 09/26/24 04:37
[2024-09-27 14:10] VITALS: RESP 16
[2024-09-27] MEDS: AMIODARONE 450 MG in DEXTROSE 5% IN WATER 250 ML IV SCH (16:47)
--- NOTE | 2024-09-27 19:39 | P.PN ---
Subjective Progress Note Date: 09/27/24 Principal diagnosis: Patient evaluated following catheterization today. Stable with no new complaints. Objective - Vital Signs Vital signs: Vital Signs Temp 97.7 F 09/27/24 07:46 Pulse 60 09/27/24 17:20 Resp 16 09/27/24 17:20 BP 110/60 09/27/24 17:20 Pulse Ox 98 09/27/24 14:00 FiO2 Intake & Output 09/26/24 09/27/24 09/27/24 18:59 06:59 18:59 Intake Total 2040 990 Balance 0 990 Weight 107.1 kg Intake: IV 990 Sodium Chloride 0.9% 1, 390 000 ml @ 130 mls/hr IV . Q7H42M [facility] Rx#:[id number] Intake, IV Titration 1560 Amount Sodium Chloride 0.9% 1, 1560 000 ml @ 130 mls/hr IV . Q7H42M [facility] Rx#:[id number] Oral 480 Other: Voiding Method Toilet # Voids 2 - Exam Gen: In NAD, non-toxic HEENT: normocephalic, atraumatic, hearing acuity is intant, mucous membranes moist CVS: perfusing all extremities well, no pitting edema, Respiratory: symmetric chest expansion, no accessory muscle use, GI: soft, NTTP, ND, : no suprapubic tenderness, no CVA tenderness MSK/Derm: Stent taped to patient's left anterior forearm for allergy evaluation. no rashes or cyanosis Neuro: CN II-XII intact, no motor weakness, Psych: cooperative, euthymic mood, judgment and insight is intact - Labs CBC & Chem 7: 09/26/24 04:37 09/26/24 04:37 Assessment and Plan Assessment: Assessment/plan: 68-year-old female with Parkinson disease on Eliquis coming in for evaluation of sudden onset chest pain discussed case with ED doctor and accepted the admission for NSTEMI. . NSTEMI Pain control acetaminophen 650mg PO Q6Hr as needed, Imdur 30 mg PO QID PRN Cardiology consult Cardiac monitoring Aspirin and statin Lovenox held today Troponin slightly elevated Rest of her blood work unremarkable white count 4.49 hemoglobin 9.8 Sodium 134 potassium 3.9 BUN 8 creatinine 0.49 Pending results from catheterization today Chronic conditions A-fib status post ablation on Eliquis currently on hold patient was switched to full dose therapeutic Lovenox but held today due to procedure. Parkinson disease resume home medications Full code DVT prophylaxis held today due to procedure I saw and evaluated the patient during the church and critical portions of this encounter, and discussed the case in detail with the resident author of this note, I agree with the Assessment and Plan, and my changes, if any, are highlighted in blue. 68-year-old woman is status post left heart kelly terization today with 80% blockage of one of her vessels according to the patient. She was seen today following her procedure (procedure note is pending) in which she told us there is an 80% blockage of one of her vessels warranting intervention. She is seen wearing a stent taped to her wrist, presumably for allergy testing prior to placement by interventionalist on-call. She is in good spirits and has been stable. Further management per cardiology likely in coming days.
[2024-09-27] MEDS: ATORVASTATIN 40 MG TAB PO SCH (20:49)
--- NOTE | 2024-09-27 21:00 | CC ---
CARDIAC CATHETERIZATION REPORT INDICATION: Non ST-segment elevation MN. PROCEDURE NOTE: After obtaining informed consent, left heart catheterization and coronary angiogram were performed via the right femoral artery using standard Yoan catheters. The patient tolerated the procedure well without any obvious immediate complications. Manual hemostasis will be obtained at the end of the procedure. Total sedation time was 22 minutes. The patient apparently has allergies to heparin and nickel and Hospital as per its policies has used saline flush throughout the procedure. Nursing staff had apparently spoken to . FINDINGS: 1. Hemodynamics: Left ventricular end-diastolic pressure is . There is no significant gradient across the aortic valve. 2. Left ventriculogram: Left ventriculogram is not performed. 3. Angiographic data: a.Right coronary artery: Right coronary artery is a large dominant vessel and is free of significant stenosis. b.Left main coronary artery is a normal-sized vessel and is free of disease, divides into left anterior descending coronary artery and circumflex coronary artery. c.Circumflex coronary artery and its branches are free of significant stenosis. d.LAD gives off a large caliber diagonal branch that shows a focal 80% to 90% stenosis. CONCLUSION: 80% to 90% stenosis involving the diagonal branch of LAD. PLAN: I reviewed angiographic data with Dr. Krishnan, the on-call paralegal. Given the patient's nickel allergy, the plan at this stage is to treat her with optimal medical therapy and consider for revascularization after testing her for nickel allergy if necessary. The patient has had episodes of atrial fibrillation, came to the lab with amiodarone and was in sinus rhythm, but went into atrial fibrillation. She is currently on IV amiodarone and we are giving her dose of IV Lopressor also. MMODL / IJN: [id number] /
[2024-09-28 04:46] VITALS: PULSE 55
[2024-09-28] MEDS: ACETAMINOPHEN TAB 325 MG TAB PO PRN (06:58)
[2024-09-28 08:26] VITALS: BP 103/66; TEMP 97.9
[2024-09-28] MEDS: APIXABAN 5 MG TAB PO SCH (08:29)
[2024-09-28] MEDS: ASPIRIN 81 MG PO SCH (08:29)
[2024-09-28] MEDS: ISOSORBIDE MONONITRATE ER 30 MG TAB.ER.24H PO SCH (08:29)
[2024-09-28] MEDS: DAPAGLIFLOZIN PROPANEDIOL 10 MG TABLET PO SCH (08:41)
[2024-09-28] MEDS: AMIODARONE 200 MG TAB PO SCH (08:41)
[2024-09-28 09:04] LABS: Basophils # (A) 0.01 10*3/uL (0.00-0.10); Basophils % (A) 0.2 %; Eosinophils # (A) 0.09 10*3/uL (0.04-0.35); Eosinophils % (A) 1.6 %; HCT 34.1 % (37.2-46.3); HGB 10.9 g/dL (12.0-15.0); Lymphocytes # (A) 1.01 10*3/uL (0.90-5.00); Lymphocytes % (A) 18.2 %; MCH 31.5 pg (27.0-32.0); MCHC 32.0 g/dL (32.0-37.0); MCV 98.6 fL (80.0-97.0); Monocytes # (A) 0.52 10*3/uL (0.20-1.00); Monocytes % (A) 9.4 %; Neutrophils # (A) 3.90 10*3/uL (1.80-7.70); Neutrophils % (A) 70.1 %; Platelet Count 136 10*3/uL (140-440); RBC 3.46 10*6/uL (4.10-5.20); RDW 14.2 % (11.5-14.5); WBC 5.56 10*3/uL (4.50-10.00)
[2024-09-28 09:20] LABS: African American GFR (CKD) >90 (>60 ml/min/1.73 sqM); Anion Gap 8 mmol/L; Blood Urea Nitrogen 5 mg/dL (7-17); Calcium 9.1 mg/dL (8.4-10.2); Carbon Dioxide 25 mmol/L (22-30); Chloride 107 mmol/L (98-107); Glucose 124 mg/dL (74-99); Non-African American GFR(CKD) >90 (>60 ml/min/1.73 sqM); Potassium 4.0 mmol/L (3.5-5.1); Sodium 140 mmol/L (137-145)
--- NOTE | 2024-09-28 12:20 | P.DS ---
Providers Date of admission: 09/24/24 06:00 Expected date of discharge: 09/28/24 Attending physician: Sugey Owen MD Consults: 09/24/24 06:00 Consult Physician Routine Consulting Provider: [facility] Consult Reason/Comments: nstemi Do you want consulting provider notified?: Yes Primary care physician: 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 There have been no further episodes of chest pain since then. The patient denies any current symptoms of fever, chills, or illness. In 2012, the patient reports having had a 'broken heart attack,' though no interventions such as stents or balloons were required. The patient mentions that the cardiomyopathy 'healed itself.' Ablation for atrial fibrillation in the past which resulted in some kind of reaction to heparin drip for which she refused to do that at this time she also informed cardiology that she has allergies to metals and not sure which should be done if stent is needed While in the hospital, the patient was found to have NSTEMI and cardiology was consulted. CT demonstrated hepatic steatosis, prior cholecystecomy, and diverticulosis without evidence of small bowel obstruciton or pneumoperitoneum. While admitted, patient had a cardiac catheterization on 09/27/24 which showed 80- 90% stenosis of diagonal branch of LAD. No stent was placed during the procedure. Instead, the patient opted for medical management and possible future stent placement or surgical management. Echo on 09/24/24 found new HFREF with an EF of 35%. Patient was given f/u recommendations to PCP, toll ticket clerk, and cardiology. Patient was sent home on dapagliflolozin, Imdur, Metoprolol tartrate, ASA, Entresto, and atorvastatin along with her previous home medications. Patient seen and examined at bedside. Patient understands and is amenable to the plan for d/c with outpatient follow up. Vital signs reviewed and stable. Physical examination: Vital signs reviewed General: non toxic, no distress, appears at stated age, normal weight Derm: no unusual rashes/lesions, warm Head: atraumatic, normocephalic, symmetric Eyes: EOMI, anicteric sclera, pupils equal round reactive to light ENT: Nose and ears atraumatic Neck: No cervical lymphadenopathy, trachea midline, supple Mouth: no lip lesion, mucus membranes moist Cardiovascular: S1S2 reg, no murmur, positive dorsalis pedis pulse bilateral, 2+ Pitting edema to knees in bilateral lower extremities Lungs: CTA bilateral, no rhonchi, no rales, no accessory muscle use Abdominal: soft, nontender to palpation, no guarding Ext: muscle strength 5 out of 5 in all 4 extremities grossly, no gross muscle at rophy Neuro: CN II-XI grossly intact, no gross focal neuro deficits Psych: Alert, oriented to person, place, and time A total of greater than 30 minutes of time were spent preparing this complex di scharge summary. Patient was discharged on 09/28/24 at 959. Renny Chisholm MD PGY-1 TY Dictation was produced using Venyo dictation software. please excuse any grammatical, word or spelling errors. [facility] confidentiality statement: "The information contained in this communication, including attachments, is confidential, may be privileged, and is intended only for the use of the named recipient(s). Unauthorized use, disclosure, forwarding or copying is strictly prohibited and may be unlawful. If you have received this communication in error, please notify me IMMEDIATELY at the phone number or pager listed above." I have seen and evaluated the patient today. Discussed with the resident and agree with the residents finding and plan as documented in the resident's note. Changes highlighted in blue font. Patient Condition at Discharge: Stable Plan - Discharge Summary Discharge Rx Participant: No New Discharge Prescriptions: New Dapagliflozin Propanediol [Farxiga] 10 mg PO DAILY #90 tab Isosorbide Mononitrate ER [Imdur] 30 mg PO DAILY #90 tab Metoprolol Tartrate [Lopressor] 50 mg PO BID #90 tab Aspirin 81 mg PO DAILY #90 tab Amiodarone [Cordarone] 400 mg PO BID #90 tab Sacubitril/Valsartan [Entresto 24 mg-26 mg Tablet] 1 each PO BID #90 tab Atorvastatin [Lipitor] 40 mg PO HS #90 tab Continue Carbidopa-Levodopa ER 50-200Mg [Sinemet CR 50-200 mg] 1 tab PO HS Carbidopa-Levodopa 25-100 mg [Sinemet 25-100 mg] 1.5 tab PO TID@0900,1330,1830 Apixaban [Eliquis] 5 mg PO BID Discontinued Metoprolol Tartrate [Lopressor] 12.5 mg PO BID Propafenone [Rythmol] 150 mg PO BID Discharge Medication List Apixaban [Eliquis] 5 mg PO BID 06/01/21 [History] Carbidopa-Levodopa 25-100 mg [Sinemet 25-100 mg] 1.5 tab PO TID@0900,1330,1830 06/01/21 [History] Carbidopa-Levodopa ER 50-200Mg [Sinemet CR 50-200 mg] 1 tab PO HS 12/06/22 [History] Amiodarone [Cordarone] 400 mg PO BID #90 tab 09/28/24 [Rx] Aspirin 81 mg PO DAILY #90 tab 09/28/24 [Rx] Atorvastatin [Lipitor] 40 mg PO HS #90 tab 09/28/24 [Rx] Dapagliflozin Propanediol [Farxiga] 10 mg PO DAILY #90 tab 09/28/24 [Rx] Isosorbide Mononitrate ER [Imdur] 30 mg PO DAILY #90 tab 09/28/24 [Rx] Metoprolol Tartrate [Lopressor] 50 mg PO BID #90 tab 09/28/24 [Rx] Sacubitril/Valsartan [Entresto 24 mg-26 mg Tablet] 1 each PO BID #90 tab 09/28/24 [Rx] Follow up Appointment(s)/Referral(s): Theresa Pires MD [Primary Care Provider] - 10/06/24 9:00 am () Claus Luna MD [STAFF PHYSICIAN] - 1 Week Ricardo Rock MD [STAFF PHYSICIAN] - 10/05/24 10:30 am (Thursday) Patient Instructions/Handouts: *Surgery [facility] - After Heart Catheterization - Medical Coding Technician Instructions, Coronary Artery Disease (DC) Activity/Diet/Wound Care/Special Instructions: Please see PCP, cardiology and toll ticket clerk. Discharge Disposition: HOME SELF-CARE
--- NOTE | 2024-09-28 13:22 | P.PN ---
Subjective Progress Note Date: 09/28/24 The patient was seen and evaluated this morning. She is asymptomatic and hemodynamically stable. The echo showed cardiomyopathy. The plan is to pursue a heart catheterization in the next 24 to 48 hours. The physical examination is remarkable for regular rhythm with a soft systolic murmur and clear breathing sounds bilaterally and no edema was noted in the lower extremities 09/27/2024 Patient seen and examined. Patient is scheduled for left heart catheterization today with Dr. Rock. Patient is found at this time to be in A-fib with RVR and amiodarone drip started. Patient does have a known nickel allergy and possibility of testing postcardiac catheterization will be addressed. Blood pressure 147/85, pulse ox 99% on room air. 09/28/2024 Patient seen and examined. Yesterday, patient underwent cardiac catheterization with Dr. Rock which revealed 80 to 90% stenosis involving the diagonal branch of the LAD. Due to her history of nickel allergy, a stent was taped to her left forearm overnight. She had had no reaction to the nickel in the stent. Patient however is very hesitant about moving forward with stent placement due to her concern for nickel allergy. Plan is for medical management. She denies having any chest pain or chest pressure. No shortness of breath. She is on amiodarone drip which will be transition to oral. Patient is currently on sinus rhythm but has been flipping [id number] between A-fib and sinus. The physical examination is remarkable for regular rhythm with a soft systolic murmur and clear breathing sounds bilaterally and no edema was noted in the lower extremities Assessment Acute non-ST elevated myocardial infarction, 80 to 90% stenosis in the diagonal branch of the LAD Cardiomyopathy likely to be ischemic Nickel allergy Plan Continue the current medical regimen Discontinue amiodarone drip and start oral amiodarone 400 mg twice daily for 1 week then 200 mg twice daily Continue Eliquis, aspirin, atorvastatin, Imdur, Lopressor Continue patient on Entresto Patient is cleared for discharge from cardiology perspective. Patient will fo llow-up in the office with Dr. Amna Rock in 2 weeks. Nurse practitioner note has been reviewed, I agree with documented findings and plan of care. Patient was seen and examined. Objective - Vital Signs Vital signs: Vital Signs Temp 97.9 F 09/28/24 08:00 Pulse 55 L 09/28/24 04:00 Resp 16 09/28/24 08:00 BP 103/66 09/28/24 08:00 Pulse Ox 97 09/28/24 08:00 FiO2 Intake & Output 09/27/24 09/28/24 09/28/24 18:59 06:59 18:59 Intake Total 1489.98 235.838 Balance 1489.98 235.838 Weight 109 kg Intake: IV 1489.98 Amiodarone 360 mg In 199.98 Dextrose 5% in Water 200 ml @ 1 MG/MIN 33.333 mls/ hr IV .Q6H [facility] Rx#: [id number] Sodium Chloride 0.9% 1, 390 000 ml @ 130 mls/hr IV . Q7H42M [facility] Rx#:[id number] Sodium Chloride 0.9% 1, 300 000 ml @ 75 mls/hr IV . [id number] [facility] Rx#:[id number] Intake, IV Titration 235.838 Amount Amiodarone 450 mg In 235.838 Dextrose 5% in Water 250 ml @ 0.5 MG/MIN 16.667 mls/hr IV .Q15H [facility] Rx#: [id number] Other: Voiding Method Toilet # Voids 4 - Labs CBC & Chem 7: 09/28/24 08:40 09/28/24 08:40
== END 2024-09-28 13:25 | disposition home or self-care (01) | DRG 281 ==
LOC: EC 00:24 → UNDOADMOB 04:41 → 6NMEDSUR 04:41 → 3SCARD 06:00
PROVIDERS: ADMIT Internal Medicine; ATTEND Internal Medicine
PROC: 4A023N7 Measurement of Cardiac Sampling and Pressure, Left Heart, Percutaneous Approach (ICD-10-PCS; principal; 2024-09-27 12:00)
PROC: 3E033RZ Introduction of Antiarrhythmic into Peripheral Vein, Percutaneous Approach (ICD-10-PCS; principal; 2024-09-27 12:00)
PROC: B2111ZZ Fluoroscopy of Multiple Coronary Arteries using Low Osmolar Contrast (ICD-10-PCS; principal; 2024-09-27 12:00)
DX: I21.4 Non-ST elevation (NSTEMI) myocardial infarction (principal); I50.20 Unspecified systolic (congestive) heart failure; G20.A1 Parkinson's disease without dyskinesia, without mention of fluctuations; E66.9 Obesity, unspecified; K76.0 Fatty (change of) liver, not elsewhere classified; Z68.41 Body mass index [BMI] 40.0-44.9, adult; I48.91 Unspecified atrial fibrillation; I25.10 Atherosclerotic heart disease of native coronary artery without angina pectoris; I25.5 Ischemic cardiomyopathy; M17.0 Bilateral primary osteoarthritis of knee; M19.012 Primary osteoarthritis, left shoulder; M19.011 Primary osteoarthritis, right shoulder; Z96.612 Presence of left artificial shoulder joint; K57.90 Diverticulosis of intestine, part unspecified, without perforation or abscess without bleeding; Z79.01 Long term (current) use of anticoagulants; Z79.899 Other long term (current) drug therapy; Z88.1 Allergy status to other antibiotic agents; Z88.8 Allergy status to other drugs, medicaments and biological substances; Z88.5 Allergy status to narcotic agent; I25.2 Old myocardial infarction; Z87.891 Personal history of nicotine dependence
CPT/HCPCS: 36415; 71046; 74177; 80048; 80053; 83690; 83735; 84484; 85025; 85610; 85730; 93005; 93306; 93458; 96361; 96374; 99291

== ENCOUNTER 2024-09-30 07:10 | Inpatient (IN) | payer MEDICARE ==
[2024-09-30] MEDS: SODIUM CHLORIDE 0.9% 1,000 ML IV STA (07:18)
--- NOTE | 2024-09-30 07:32 | ED ---
General Adult HPI - General Chief complaint: Arrhythmia/Palpitations Stated complaint: Afib Time Seen by Provider: 09/30/24 07:15 Source: patient, EMS, RN notes reviewed, old records reviewed Mode of arrival: EMS - History of Present Illness Initial comments: This is a 68-year-old female who presents to the emergency department the past medical history significant for cardiomyopathy and coronary artery disease. Patient was in the hospital 4 days ago and had a STEMI patient was taken to the cardiac [facility] and had a 80 to 90% occlusion of the diagonal off the LAD. Patient did not want a stent so they were medically managing the patient. Patient was sent home on amiodarone because she has a history of A-fib. Patient did not take her meds this morning she woke up felt chest pain short of breath and her heart racing. Patient did not have any fever chills or cough. Patient denied any abdominal pain patient has any nausea vomiting diarrhea. - Related Data Home Medications Medication Instructions Recorded Confirmed Apixaban [Eliquis] 5 mg PO BID 06/01/21 09/30/24 Carbidopa-Levodopa 25-100 mg 1.5 tab PO TID@0900,1330,1830 06/01/21 09/30/24 [Sinemet 25-100 mg] Carbidopa-Levodopa ER 50-200Mg 1 tab PO HS 12/06/22 09/30/24 [Sinemet CR 50-200 mg] Amiodarone [Cordarone] See Taper PO DIRECTED 09/30/24 09/30/24 Sacubitril/Valsartan [Entresto 24 1 tab PO BID 09/30/24 09/30/24 mg-26 mg Tablet] Previous Rx's Medication Instructions Recorded Aspirin 81 mg PO DAILY #90 tab 09/28/24 Atorvastatin [Lipitor] 40 mg PO HS #90 tab 09/28/24 Dapagliflozin Propanediol [Farxiga] 10 mg PO DAILY #90 tab 09/28/24 Isosorbide Mononitrate ER [Imdur] 30 mg PO DAILY #90 tab 09/28/24 Metoprolol Tartrate [Lopressor] 50 mg PO BID #90 tab 09/28/24 Allergies Allergy/AdvReac Type Severity Reaction Status Date / Time cobalt Allergy Rash/Hives Verified 09/30/24 09:28 ferrous sulfate Allergy Rash/Hives Verified 09/30/24 09:28 nickel Allergy Rash/Hives Verified 09/30/24 09:28 norfloxacin [From Noroxin] Allergy Rash/Hives Verified 09/30/24 09:28 codeine AdvReac Nausea & Verified 09/30/24 09:28 Vomiting heparin AdvReac see comment Verified 09/30/24 09:28 Review of Systems ROS Statement: Those systems with pertinent positive or pertinent negative responses have been documented in the HPI. ROS Other: All systems not noted in ROS Statement are negative. Past Medical History Past Medical History: Atrial Fibrillation, Myocardial Infarction ([place]) Additional Past Medical History / Comment(s): 11/14/14 ADMITTED WITH CHEST DISCOMFORT. 08/14/14 Pt presented to [facility] ER with complaints of irregular heart beat this AM. She did have some SOB and palpitations. Other HX: Afib with RVR with admission 08/06/13 here at [facility]. Generalized Arthiritis, parkinson disease Last Myocardial Infarction Date:: 2012 History of Any Multi-Drug Resistant Organisms: None Reported Past Surgical History: Adenoidectomy, Breast Surgery, Cardiac Ablation, Section, Cholecystectomy, Heart Catheterization, Tonsillectomy Additional Past Surgical History / Comment(s): Left total shoulder surgery. R knee arthroscopy x 4, 2 C-Sections, R breast bx-benign,cataracts Past Anesthesia/Blood Transfusion Reactions: Motion Sickness Additional Past Anesthesia/Blood Transfusion Reaction / Comment(s): NAUSEA FROM ANESTHESIA. NO REACTIONS FROM BLOOD. Past Psychological History: No Psychological Hx Reported Smoking Status: Former smoker Past Alcohol Use History: Occasional Past Drug Use History: None Reported - Past Family History Father History Unknown: Yes Family Medical History: AFIB, Vascular Disorder Mother Family Medical History: Cancer, Dementia, Hypertension Additional Family Medical History / Comment(s): Mother had a RBBB.MELANOMA Brother(s) History Unknown: Yes Family Medical History: AFIB Additional Family Medical History / Comment(s): Pt has 4 brothers with AFIB. General Exam - General Exam Comments Initial Comments: GENERAL: Patient is well-developed and well-nourished. Patient is nontoxic and well- hydrated and is in mild distress. ENT: Neck is soft and supple. No significant lymphadenopathy is noted. Oropharynx is clear. Moist mucous membranes. Neck has full range of motion without eliciting any pain. EYES: The sclera were anicteric and conjunctiva were pink and moist. Extraocular movements were intact and pupils were equal round and reactive to light. Eyelids were unremarkable. PULMONARY: Unlabored respirations. Good breath sounds bilaterally. No audible rales rhonchi or wheezing was noted. CARDIOVASCULAR: Patient has a no regular rate at about 135 beats a minute ABDOMEN: Soft and nontender with normal bowel sounds. SKIN: Skin is clear with no lesions or rashes and otherwise unremarkable. NEUROLOGIC: Patient is alert and oriented x3. Cranial nerves II through XII are grossly intact. Motor and sensory are also intact. Normal speech, volume and content. Symmetrical smile. MUSCULOSKELETAL: Normal extremities with adequate strength and full range of motion. No lower extremity swelling or edema. No calf tenderness. LYMPHATICS: No significant lymphadenopathy is noted PSYCHIATRIC: Normal psychiatric evaluation. Course Vital Signs 09/30/24 09/30/24 09/30/24 07:12 07:30 07:45 Temperature 97.9 F Pulse Rate 137 H Respiratory 18 Rate Blood Pressure 77/32 73/32 64/30 O2 Sat by Pulse 96 Oximetry 09/30/24 09/30/24 09/30/24 08:00 08:06 08:11 Temperature Pulse Rate 117 H 114 H Respiratory Rate Blood Pressure 63/47 68/38 78/35 O2 Sat by Pulse Oximetry 09/30/24 09/30/24 09/30/24 09:15 09:20 09:25 Temperature Pulse Rate 81 Respiratory 16 Rate Blood Pressure 93/48 99/46 100/46 O2 Sat by Pulse 95 Oximetry 09/30/24 09/30/24 09:30 09:50 Temperature Pulse Rate 80 Respiratory 16 Rate Blood Pressure 84/54 107/55 O2 Sat by Pulse 96 Oximetry Medical Decision Making - Medical Decision Making EKG was interpreted by myself. EKG shows atrial fibrillation with rapid ventricular response at 116 bpm QRS 108 QT interval is 364 QTc is 433. Patient's EKG shows significant ST segment depression inferiorly as well as some precordial leads V3 through V6. I spoke with Dr. Krishnan shortly after the patient arrived he was in agreement with me starting amiodarone and IV fluids. Repeat EKG was interpreted by myself. EKG shows atrial fibrillation at 99 bpm QRS is 103 QT interval is 410 QTc is 466. Patient's EKG has significant ST segment depression and T wave inversions in the inferior leads as well as the precordial leads V3 through V6. EKG is interpreted by myself. EKG shows a sinus rhythm at 67 bpm IN interval is 166 QRS is 110 QT interval is 448 QTc is 463. Patient EKG shows T wave inversions in inferior leads as well as precordial leads V3 through V6 Was pt. sent in by a medical professional or institution (, [facility], [facility], urgent care, hospital, or jail...) When possible be specific @ -No Did you speak to anyone other than the patient for history (EMS, parent, family, police, friend...)? What history was obtained from this source @ -No Did you review nursing and triage notes (agree or disagree)? Why? @ -I reviewed and agree with nursing and triage notes Were old charts reviewed (outside hosp., previous admission, EMS record, old EKG, old radiological studies, urgent care reports/EKG's, jail records)? Report findings @ -No old charts were reviewed Differential Diagnosis? @ -Differential Chest Pain: Stable Angina, Unstable Angina, STEMI, NSTEMI Aortic Dissection, Pneumothorax, Musculoskeletal, Esophageal Spasm GERD, Cholecystitis, Pancreatitis, Zoster, this is not meant to be an all-inclusive list. EKG interpreted by me (3pts min.). @ -As above X-rays interpreted by me (1pt min.). @ -Chest x-ray shows no acute abnormality CT interpreted by me (1pt min.). @ -None done U/S interpreted by me (1pt. min.). @ -None done What testing was considered but not performed or refused? (CT, X-rays, U/S, labs)? Why? @ -None What meds were considered but not given or refused? Why? @ -None Did you discuss the management of the patient with other professionals (professionals i.e. , [facility], [facility], lab, RT, psych nurse, social insurance specialist, lawyers, teacher, promotion officer, major case detective)? Give summary @ -I spoke with Dr. Krishnan on a number of occasions he came down and saw the patient in person. I spoke with Dr. Eddy about the patient as well and I s poke with [facility]. [facility] will be admitting the patient Was smoking cessation discussed for >3mins.? @ -No Was critical care preformed (if so, how long)? @ -45 minutes Were there social determinants of health that impacted care today? How? (Homelessness, low income, unemployed, alcoholism, drug addiction, transportation, low edu. Level, literacy, decrease access to med. care, [facility], rehab)? @ -No Was there de-escalation of care discussed even if they declined (Discuss DNR or withdrawal of care, Hospice)? DNR status @ -No What co-morbidities impacted this encounter? (DM, HTN, Smoking, COPD, CAD, Cancer, CVA, ARF, Chemo, Hep., AIDS, mental health diagnosis, sleep apnea, morb id obesity)? @ -None Was patient admitted / discharged? Hospital course, mention meds given and rout e, prescriptions, significant lab abnormalities, going to OR and other pertinent info. @ -Patient came in in A-fib with rapid ventricular sponsor started on amiodarone and amiodarone drip. Patient also received 2 L of fluid because her pressure was low and I started her on Levophed. Patient's pressure responded and amiodarone continued her heart rate continued to go down. Patient was feeling considerably better and the chest pain went away. Dr. Krishnan wanted to wait and see if the amiodarone continues to slow her heart rate down and want to wait for the echo to make a determination of what was to follow. Patient will be admitted to the ICU Undiagnosed new problem with uncertain prognosis? @ -No Drug Therapy requiring intensive monitoring for toxicity (Heparin, Nitro, Insulin, Cardizem)? @ -No Were any procedures done? @ -No Diagnosis/symptom? @ -A-fib with rapid ventricular response Acute, or Chronic, or Acute on Chronic? @ -Acute Uncomplicated (without systemic symptoms) or Complicated (systemic symptoms)? @ -Complicated Side effects of treatment? @ -No Exacerbation, Progression, or Severe Exacerbation? @ -No Poses a threat to life or bodily function? How? (Chest pain, [place], [place], pneumonia, PE, COPD, DKA, ARF, appy, cholecystitis, CVA, Diverticulitis, Homicidal, Suicidal, threat to staff... and all critical care pts) @ -Yes this can lead to hypotension and endorgan dysfunction Diagnosis/symptom? @ -Cardiogenic shock Acute, or Chronic, or Acute on Chronic? @ -Acute Uncomplicated (without systemic symptoms) or Complicated (systemic symptoms)? @ -Complicated Side effects of treatment? @ -None Exacerbation, Progression, or Severe Exacerbation] @ -No Poses a threat to life or bodily function? @ -Yes this can lead to poor perfusion and endorgan dysfunction - Lab Data Result diagrams: 09/30/24 07:27 09/30/24 07:27 Lab Results 09/30/24 09/30/24 09/30/24 Range/Units 07:23 07:27 07:27 WBC 6.92 (4.50-10.00) 10*3/uL RBC 3.26 L (4.10-5.20) 10*6/uL Hgb 10.6 L (12.0-15.0) g/dL Hct 31.7 L (37.2-46.3) % MCV 97.2 H (80.0-97.0) fL MCH 32.5 H (27.0-32.0) pg MCHC 33.4 (32.0-37.0) g/dL Plt Count 148 (140-440) 10*3/uL MPV 12.6 H (9.5-12.2) fL Immature Gran % (Auto) 0.3 % Neutrophils % 71.3 % Lymphocytes % 17.8 % Monocytes % 7.4 % Eosinophils % 2.6 % Basophils % 0.6 % Immature Gran # 0.02 (0.00-0.04) 10*3/uL Neutrophils # 4.94 (1.80-7.70) 10*3/uL Lymphocytes # 1.23 (0.90-5.00) 10*3/uL Monocytes # 0.51 (0.20-1.00) 10*3/uL Eosinophils # 0.18 (0.04-0.35) 10*3/uL Basophils # 0.04 (0.00-0.10) 10*3/uL PT 11.8 (10.0-12.5) sec INR 1.1 (<1.2) APTT 27.4 (22.0-30.0) sec Sodium (137-145) mmol/L Potassium (3.5-5.1) mmol/L Chloride (98-107) mmol/L Carbon Dioxide (22-30) mmol/L Anion Gap mmol/L BUN (7-17) mg/dL Creatinine (0.52-1.04) mg/dL Est GFR (CKD-EPI)AfAm (>60 ml/min/1.73 sqM) Est GFR (CKD-EPI)NonAf (>60 ml/min/1.73 sqM) Glucose (74-99) mg/dL Plasma Lactic Acid [place] 2.9 H* (0.7-2.0) mmol/L Calcium (8.4-10.2) mg/dL Magnesium (1.6-2.3) mg/dL Total Bilirubin (0.2-1.3) mg/dL AST (14-36) U/L ALT (4-34) U/L Alkaline Phosphatase (38-126) U/L Troponin I (0.000-0.034) ng/mL Total Protein (6.3-8.2) g/dL Albumin (3.5-5.0) g/dL 09/30/24 09/30/24 Range/Units 07:27 07:27 WBC (4.50-10.00) 10*3/uL RBC (4.10-5.20) 10*6/uL Hgb (12.0-15.0) g/dL Hct (37.2-46.3) % MCV (80.0-97.0) fL MCH (27.0-32.0) pg MCHC (32.0-37.0) g/dL Plt Count (140-440) 10*3/uL MPV (9.5-12.2) fL Immature Gran % (Auto) % Neutrophils % % Lymphocytes % % Monocytes % % Eosinophils % % Basophils % % Immature Gran # (0.00-0.04) 10*3/uL Neutrophils # (1.80-7.70) 10*3/uL Lymphocytes # (0.90-5.00) 10*3/uL Monocytes # (0.20-1.00) 10*3/uL Eosinophils # (0.04-0.35) 10*3/uL Basophils # (0.00-0.10) 10*3/uL PT (10.0-12.5) sec INR (<1.2) APTT (22.0-30.0) sec Sodium 139 (137-145) mmol/L Potassium 3.2 L (3.5-5.1) mmol/L Chloride 107 (98-107) mmol/L Carbon Dioxide 19 L (22-30) mmol/L Anion Gap 13 mmol/L BUN 10 (7-17) mg/dL Creatinine 0.66 (0.52-1.04) mg/dL Est GFR (CKD-EPI)AfAm >90 (>60 ml/min/1.73 sqM) Est GFR (CKD-EPI)NonAf >90 (>60 ml/min/1.73 sqM) Glucose 95 (74-99) mg/dL Plasma Lactic Acid [place] (0.7-2.0) mmol/L Calcium 8.9 (8.4-10.2) mg/dL Magnesium 1.3 L (1.6-2.3) mg/dL Total Bilirubin 0.6 (0.2-1.3) mg/dL AST 21 (14-36) U/L ALT 9 (4-34) U/L Alkaline Phosphatase 64 (38-126) U/L Troponin I 0.023 (0.000-0.034) ng/mL Total Protein 5.5 L (6.3-8.2) g/dL Albumin 3.3 L (3.5-5.0) g/dL Disposition Clinical Impression: Cardiogenic shock, Atrial fibrillation with RVR Disposition: ADMITTED IP TO THIS [facility] Time of Disposition: 08:50
[2024-09-30] MEDS: DEXTROSE 5% IN WATER 100 ML with AMIODARONE 150 MG IV ONE (07:33)
[2024-09-30 07:36] LABS: Basophils # (A) 0.04 10*3/uL (0.00-0.10); Basophils % (A) 0.6 %; Eosinophils # (A) 0.18 10*3/uL (0.04-0.35); Eosinophils % (A) 2.6 %; HCT 31.7 % (37.2-46.3); HGB 10.6 g/dL (12.0-15.0); Lymphocytes # (A) 1.23 10*3/uL (0.90-5.00); Lymphocytes % (A) 17.8 %; MCH 32.5 pg (27.0-32.0); MCHC 33.4 g/dL (32.0-37.0); MCV 97.2 fL (80.0-97.0); Monocytes # (A) 0.51 10*3/uL (0.20-1.00); Monocytes % (A) 7.4 %; Neutrophils # (A) 4.94 10*3/uL (1.80-7.70); Neutrophils % (A) 71.3 %; Platelet Count 148 10*3/uL (140-440); RBC 3.26 10*6/uL (4.10-5.20); RDW 13.7 % (11.5-14.5); WBC 6.92 10*3/uL (4.50-10.00)
[2024-09-30 07:45] LABS: INR 1.1 (<1.2); Partial Thromboplastin Time 27.4 sec (22.0-30.0); Prothrombin Time 11.8 sec (10.0-12.5)
[2024-09-30] MEDS: AMIODARONE 360 MG in DEXTROSE 5% IN WATER 200 ML IV ONE (07:45)
[2024-09-30 07:48] LABS: ALT 9 U/L (4-34); AST 21 U/L (14-36); African American GFR (CKD) >90 (>60 ml/min/1.73 sqM); Albumin 3.3 g/dL (3.5-5.0); Alkaline Phosphatase 64 U/L (38-126); Anion Gap 13 mmol/L; Blood Urea Nitrogen 10 mg/dL (7-17); Calcium 8.9 mg/dL (8.4-10.2); Carbon Dioxide 19 mmol/L (22-30); Chloride 107 mmol/L (98-107); Glucose 95 mg/dL (74-99); Magnesium 1.3 mg/dL (1.6-2.3); Non-African American GFR(CKD) >90 (>60 ml/min/1.73 sqM); Potassium 3.2 mmol/L (3.5-5.1); Sodium 139 mmol/L (137-145); Total Protein 5.5 g/dL (6.3-8.2)
[2024-09-30] MEDS ORDERED: POTASSIUM CHLORIDE 20 MEQ in WATER FOR INJECTION 1 100ML.BAG IVPB STA (07:53)
[2024-09-30] MEDS: NOREPINEPHRINE 8 MG in SODIUM CHLORIDE 0.9% 250 ML IV SCH (08:02)
[2024-09-30] MEDS: SODIUM CHLORIDE 0.9% 1,000 ML IV ONE (08:05)
[2024-09-30] MEDS: MAGNESIUM SULFATE-D5W PMX 1 GM in DEXTROSE/WATER 1 100ML.BAG IVPB SCH (08:16)
[2024-09-30] MEDS ORDERED: NALOXONE 0.4 MG/ML 1 ML VIAL IV PRN (08:52)
--- NOTE | 2024-09-30 08:56 | P.CRDCN ---
History of Present Illness Consult date: 09/30/24 History of present illness: The patient is a pleasant 68-year-old female patient who is known to our service from before who was just discharged from the hospital few days ago. She does have history of CAD documented on recent heart catheterization as well as nonischemic cardiomyopathy and paroxysmal atrial fibrillation as well as history of Parkinson disease. The patient presented initially few days ago on September 24 with symptoms of chest discomfort and she was ruled in for acute coronary syndrome. The echo at that point showed cardiomyopathy with EF around 35% which has dropped compared to an echo was performed in 2021 and at that point that echo showed an EF around 45%. Also she was ruled in for acute non-ST ovation myocardial infarction. With that she underwent a heart catheterization and that revealed severe disease involving the diagonal branch of the LAD which was about 2.5 mm in diameter. Given the history of nickel allergy PCI was not performed. She was discharged in stable medical condition on cardiomyopathy medication except that she refused to take SGLT2 inhibitors. 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 She was experiencing symptoms of shortness of breath and chest pain and feeling dizzy and lightheaded. Also she felt weak. In the ER she underwent an evaluation including an EKG showing A-fib with RVR with diffuse ST changes similar to previous EKG concerning for global ischemia likely to be triggered by the A-fib with RVR. Also she was hypotensive. She was started on amiodarone and subsequently norepinephrine. When she was seen and evaluated this morning she was feeling already better. Troponin first set came to be unremarkable. The rest of the workup overall came to be unremarkable with no elevated WBC. She had no fever nor chills. The physical examination is remarkable for irregular rhythm with heart rate around 112 bpm and clear breathing sounds bilaterally and no edema was noted in the lower extremities Assessment A-fib with RVR in somebody with paroxysmal atrial fibrillation and symptomatic atrial fibrillation Nonischemic cardiomyopathy with EF around 35% documented on recent heart catheterization CAD with severe disease involving the diagonal branch in someone with nickel allergy Parkinson disease Plan Continue all the cardiomyopathy medications Support the pressure using norepinephrine Continue IV amiodarone Restart the patient back on the cardiomyopathy medications once the pressure improved Obtain an echo to rule out any pericardial effusion Follow-up with the patient Past Medical History Past Medical History: Atrial Fibrillation, Myocardial Infarction ([place]) Additional Past Medical History / Comment(s): 11/14/14 ADMITTED WITH CHEST DISCOMFORT. 08/14/14 [facility] with complaints of irregular heart beat this AM. She did have some SOB and palpitations. Other HX: Afib with RVR with admission 08/06/13 [facility] Generalized Arthiritis, parkinson disease Last Myocardial Infarction Date:: 2012 History of Any Multi-Drug Resistant Organisms: None Reported Past Surgical History: Adenoidectomy, Breast Surgery, Cardiac Ablation, Section, Cholecystectomy, Heart Catheterization, Tonsillectomy Additional Past Surgical History / Comment(s): Left total shoulder surgery. R knee arthroscopy x 4, 2 C-Sections, R breast bx-benign,cataracts Past Anesthesia/Blood Transfusion Reactions: Motion Sickness Additional Past Anesthesia/Blood Transfusion Reaction / Comment(s): NAUSEA FROM ANESTHESIA. NO REACTIONS FROM BLOOD. Past Psychological History: No Psychological Hx Reported Smoking Status: Former smoker Past Alcohol Use History: Occasional Past Drug Use History: None Reported - Past Family History Father History Unknown: Yes Family Medical History: AFIB, Vascular Disorder Mother Family Medical History: Cancer, Dementia, Hypertension Additional Family Medical History / Comment(s): Mother had a RBBB.MELANOMA Brother(s) History Unknown: Yes Family Medical History: AFIB Additional Family Medical History / Comment(s): Pt has 4 brothers with AFIB. Medications and Allergies Home Medications Medication Instructions Recorded Confirmed Type Apixaban [Eliquis] 5 mg PO BID 06/01/21 09/24/24 History Carbidopa-Levodopa 25-100 mg 1.5 tab PO TID@0900,1330,1830 06/01/21 09/24/24 History [Sinemet 25-100 mg] Carbidopa-Levodopa ER 50-200Mg 1 tab PO HS 12/06/22 09/24/24 History [Sinemet CR 50-200 mg] Amiodarone [Cordarone] 400 mg PO BID #90 tab 09/28/24 Rx Aspirin 81 mg PO DAILY #90 tab 09/28/24 Rx Atorvastatin [Lipitor] 40 mg PO HS #90 tab 09/28/24 Rx Dapagliflozin Propanediol [Farxiga] 10 mg PO DAILY #90 tab 09/28/24 Rx Isosorbide Mononitrate ER [Imdur] 30 mg PO DAILY #90 tab 09/28/24 Rx Metoprolol Tartrate [Lopressor] 50 mg PO BID #90 tab 09/28/24 Rx Sacubitril/Valsartan [Entresto 24 1 each PO BID #90 tab 09/28/24 Rx mg-26 mg Tablet] Allergies Allergy/AdvReac Type Severity Reaction Status Date / Time cobalt Allergy Rash/Hives Verified 09/30/24 07:20 ferrous sulfate Allergy Rash/Hives Verified 09/30/24 07:20 nickel Allergy Rash/Hives Verified 09/30/24 07:20 norfloxacin [From Noroxin] Allergy Rash/Hives Verified 09/30/24 07:20 codeine AdvReac Nausea & Verified 09/30/24 07:20 Vomiting heparin AdvReac see comment Verified 09/30/24 07:20 Physical Exam Vitals: Vital Signs Temp Pulse Resp BP Pulse Ox 09/30/24 08:11 78/35 09/30/24 08:06 114 H 68/38 09/30/24 08:00 117 H 63/47 09/30/24 07:45 64/30 09/30/24 07:30 73/32 09/30/24 07:12 97.9 F 137 H 18 77/32 96 Intake and Output 09/29/24 09/30/24 09/30/24 22:59 06:59 14:59 Other: Weight 104.326 kg Results 09/30/24 07:27 09/30/24 07:27 Cardiac Enzymes 09/30/24 09/30/24 Range/Units 07:27 07:27 AST 21 (14-36) U/L Troponin I 0.023 (0.000-0.034) ng/mL Coagulation 09/30/24 Range/Units 07:27 PT 11.8 (10.0-12.5) sec APTT 27.4 (22.0-30.0) sec CBC 09/30/24 Range/Units 07:27 WBC 6.92 (4.50-10.00) 10*3/uL RBC 3.26 L (4.10-5.20) 10*6/uL Hgb 10.6 L (12.0-15.0) g/dL Hct 31.7 L (37.2-46.3) % Plt Count 148 (140-440) 10*3/uL Comprehensive Metabolic Panel 09/30/24 Range/Units 07:27 Sodium 139 (137-145) mmol/L Potassium 3.2 L (3.5-5.1) mmol/L Chloride 107 (98-107) mmol/L Carbon Dioxide 19 L (22-30) mmol/L BUN 10 (7-17) mg/dL Creatinine 0.66 (0.52-1.04) mg/dL Glucose 95 (74-99) mg/dL Calcium 8.9 (8.4-10.2) mg/dL AST 21 (14-36) U/L ALT 9 (4-34) U/L Alkaline Phosphatase 64 (38-126) U/L Total Protein 5.5 L (6.3-8.2) g/dL Albumin 3.3 L (3.5-5.0) g/dL Current Medications Generic Name Dose Route Start Last Admin Trade Name Freq PRN Reason Stop Dose Admin Amiodarone HCl 360 mg/ 200 mls @ 33.333 mls/hr 09/30/24 07:21 09/30/24 07:45 Dextrose/Water IV 09/30/24 13:20 1 mg/min .Q6H ONE 33.333 mls/hr Administration Protocol 1 MG/MIN Amiodarone HCl 450 mg/ 250 mls @ 16.667 mls/hr 09/30/24 13:30 Dextrose/Water IV 10/01/24 07:29 .Q15H VANE Protocol 0.5 MG/MIN Sodium Chloride 1,000 mls @ 999 mls/hr 09/30/24 07:43 09/30/24 08:05 Saline 0.9% IV 09/30/24 08:43 Not Given .Q1H1M ONE Norepinephrine Bitartrate 8 mg 258 mls @ 6.056 mls/hr 09/30/24 08:00 09/30/24 08:02 / Sodium Chloride IV 0.03 mcg/kg/min .Q24H VANE 6.056 mls/hr Administration Protocol 0.03 MCG/KG/MIN Potassium Chloride 20 meq/ IV 100 mls @ 50 mls/hr 09/30/24 07:53 Solution IVPB 09/30/24 09:52 ONCE STA Magnesium Sulfate/Dextrose 1 100 mls @ 100 mls/hr 09/30/24 08:15 09/30/24 08:16 gm/ IV Solution IVPB 09/30/24 10:14 100 mls/hr Q1H VANE Administration Intake and Output 09/29/24 09/30/24 09/30/24 22:59 06:59 14:59 Other: Weight 104.326 kg Patient Weight 10/01/24 06:59 Weight 104.326 kg 09/30/24 07:27 09/30/24 07:27
--- NOTE | 2024-09-30 09:28 | XR ---
EXAMINATION TYPE: XR chest 1V portable DATE OF EXAM: 09/30/2024 8:55 AM COMPARISON: None CLINICAL INDICATION: Female, 68 years old with history of Short of breath; TECHNIQUE: XR chest 1V portable Frontal view of the chest. FINDINGS: Lungs/Pleura: There is no evidence of pleural effusion, focal consolidation, or pneumothorax. Pulmonary vascularity: Unremarkable. Heart/mediastinum: Cardiomediastinal silhouette is enlarged. Musculoskeletal: No acute osseous pathology. Left shoulder arthroplasty appears intact. Severe right and [id number] degeneration changes of the shoulder with deformity of the glenoid and right humerus . IMPRESSION: No acute cardiopulmonary disease/process. [facility], , 09/30/2024 9:26 AM
[2024-09-30 11:01] LABS: Glucose,Whole Blood 90 mg/dL (70-110)
[2024-09-30] MEDS ORDERED: Potassium Replacement Protocol 1 EACH MISC MISCELLANE PRN (11:18)
[2024-09-30] MEDS: ASPIRIN 81 MG PO SCH (11:45)
[2024-09-30] MEDS: POTASSIUM CHLORIDE ER 20 MEQ TAB.ER PO SCH ×2 (11:45→18:55)
[2024-09-30] MEDS: ENOXAPARIN 100 MG/ML SYRINGE SQ SCH (11:46)
[2024-09-30] MEDS: CARBIDOPA-LEVODOPA 25-100 MG 1 EACH TAB PO SCH (11:47)
--- NOTE | 2024-09-30 12:27 | CA ---
Transthoracic Echo Report Name: Leila Azevedo Age: 68 Gender: F : 1955 Exam Date: 09/30/2024 09:23 Exam Location: [facility] Ht (in): 64 Wt (lb): 230 Ordering Physician: Willie King MD Attending/Referring Phys: Accounts Manager Marjorie Casarez RDCS Procedure CPT: Indications: Chest Pain Cardiac Hx: Technical Quality: Fair Contrast 1: Total Dose (mL): Contrast 2: Total Dose (mL): MEASUREMENTS (Male / Female) Normal Values 2D ECHO LV Diastolic Diameter PLAX 4.7 cm 4.2 - 5.9 / 3.9 - 5.3 cm LV Systolic Diameter PLAX 4.1 cm IVS Diastolic Thickness 1.1 cm 0.6 - 1.0 / 0.6 - 0.9 cm LVPW Diastolic Thickness 1.1 cm 0.6 - 1.0 / 0.6 - 0.9 cm LV Relative Wall Thickness 0.5 RV Internal Dim ED PLAX 3.7 cm LA Systolic Diameter LX 4.0 cm 3.0 - 4.0 / 2.7 - 3.8 cm LV Diastolic Volume MOD BP 168.4 cm??? 67 - 155 / 56 - 104 cm??? LV Systolic Volume MOD BP 90.7 cm??? 22 - 58 / 19 - 49 cm??? LV Ejection Fraction MOD BP 46.1 % >= 55 % LV Cardiac Index MOD BP 2759.4 cm???/min???m??? LV Diastolic Volume MOD 4C 141.2 cm??? LV Systolic Volume MOD 4C 83.5 cm??? LV Ejection Fraction MOD 4C 40.8 % LV Cardiac Index MOD 4C 2048.0 cm???/min???m??? LV Diastolic Length 4C 8.4 cm LV Systolic Length 4C 7.1 cm LV Diastolic Volume MOD 2C 193.0 cm??? LV Systolic Volume MOD 2C 130.0 cm??? LV Ejection Fraction MOD 2C 32.6 % LV Cardiac Index MOD 2C 2238.1 cm???/min???m??? LV Diastolic Length 2C 8.2 cm LV Systolic Length 2C 6.9 cm M-MODE Aortic Root Diameter MM 3.4 cm LA Systolic Diameter MM 2.5 cm LA Ao Ratio MM 0.7 DOPPLER AV Peak Velocity 224.4 cm/s AV Peak Gradient 20.1 mmHg AV Mean Velocity 165.9 cm/s AV Mean Gradient 11.7 mmHg AV Velocity Time Integral 47.5 cm LVOT Peak Velocity 143.4 cm/s LVOT Peak Gradient 8.2 mmHg LVOT Velocity Time Integral 33.1 cm Mitral E Point Velocity 88.3 cm/s Mitral A Point Velocity 71.4 cm/s Mitral E to A Ratio 1.2 MV Deceleration Time 145.3 ms MV E' Velocity 7.9 cm/s Mitral E to MV E' Ratio 11.2 TR Peak Velocity 304.2 cm/s TR Peak Gradient 37.0 mmHg Right Ventricular Systolic Press 47.2 mmHg FINDINGS Left Ventricle Left ventricular ejection fraction is estimated at 40-45 %. Left ventricular cavity size normal. Mildly increased septal wall thickness. Mildly increased posterior wall thickness. Severely increased left ventricular diastolic volume. Severely increased left ventricular systolic volume. Mildly decreased left ventricular ejection fraction. Right Ventricle Mild right ventricular dilatation. Moderate pulmonary hypertension. Right Atrium Normal right atrial size. No right atrial thrombus or mass seen. Left Atrium Mildly increased left atrial diameter. No left atrial thrombus or mass present. Mitral Valve Structurally normal mitral valve. Mild mitral regurgitation. No evidence for mitral valve prolapse. No mitral stenosis. Aortic Valve Trileaflet aortic valve. Aortic valve sclerosis. Tricuspid Valve Structurally normal tricuspid valve. Mild tricuspid regurgitation. Pulmonic Valve Structurally normal pulmonic valve. Mild pulmonic regurgitation. Pericardium No pericardial effusion. Aorta Normal size aortic root and proximal ascending aorta. CONCLUSIONS Left ventricular ejection fraction 40 to 45% Mildly increased left ventricular wall thickness Mild mitral digitation Mild tricuspid regurgitation No pericardial effusion Previewed by: Dr. Gerhard Wilson DO (Electronically Signed) Final Date: 30 September 2024 12:26
[2024-09-30] MEDS: ACETAMINOPHEN TAB 325 MG TAB PO PRN (12:53)
[2024-09-30] MEDS: AMIODARONE 450 MG in DEXTROSE 5% IN WATER 250 ML IV SCH (13:26)
--- NOTE | 2024-09-30 13:43 | P.CNPUL ---
History of Present Illness Consult date: 09/30/24 Requesting physician: Augie Martinez Reason for consult: other Chief complaint: ICU management History of present illness: This is a 68-year-old female known history of coronary artery disease documented on previous cardiac catheterization showed severe coronary artery disease involving the diagonal branch of the LAD which was 2.5 mm in diameter. Cardiology chose not to proceed with PCI because of nickel allergy. Patient has known history of nonischemic cardiomyopathy and paroxysmal atrial fibrillation as well as history of Parkinson disease. Her ejection fraction on recent echocardiogram was 35%. Patient was discharged recently from the hospital in stable condition however she presented back today with multiple complaints including palpitations, shortness of breath, and some vague chest pain. EKG in the ER showed atrial fibrillation with RVR with diffuse ST changes similar to previous EKG patient was also noted to be hypotensive requiring norepinephrine. Had to be placed on amiodarone and norepinephrine then I was notified about this patient and accepted the patient to transfer to ICU. Cardiology is considering cardioversion on this patient. Discussed her condition with Dr. Nilsa perez in the ER at bedside. In summary we have a patient with nonischemic cardiomyopathy ejection fraction of 35% presented with A-fib and RVR, and hypotension requiring amiodarone and requiring norepinephrine. She does have history of coronary artery disease of 1 vessel/diagonal branch of LAD and was not stented because of nickel allergy. Review of Systems REVIEW OF SYSTEMS: CONSTITUTIONAL: Negative. EYES: Negative. ENT: Negative. CARDIAC: As noted in HPI PULMONARY: As noted in HPI GI: Negative. GENITOURINARY: Negative. MUSCULOSKELETAL: Negative. SKIN: Negative. NEUROPSYCH: Negative. ENDOCRINE: Negative. HEMATOLOGIC: Negative. Past Medical History Past Medical History: Atrial Fibrillation, Myocardial Infarction (AR) Additional Past Medical History / Comment(s): 11/14/14 ADMITTED WITH CHEST DISCOMFORT. 08/14/14 Pt presented to [facility] ER with complaints of irregular heart beat this AM. She did have some SOB and palpitations. Other HX: Afib with RVR with admission 08/06/13 here at [facility]. Generalized Arthiritis, parkinson disease Last Myocardial Infarction Date:: 2024 History of Any Multi-Drug Resistant Organisms: None Reported Past Surgical History: Adenoidectomy, Breast Surgery, Cardiac Ablation, Section, Cholecystectomy, Heart Catheterization, Tonsillectomy Additional Past Surgical History / Comment(s): Left total shoulder surgery. R knee arthroscopy x 4, 2 C-Sections, R breast bx-benign,cataracts. aspen allergy, colbolt allergy, blockage to diag of LAD no stenting. Past Anesthesia/Blood Transfusion Reactions: Motion Sickness Additional Past Anesthesia/Blood Transfusion Reaction / Comment(s): NAUSEA FROM ANESTHESIA. NO REACTIONS FROM BLOOD. Smoking Status: Former smoker - Past Family History Father History Unknown: Yes Family Medical History: AFIB, Vascular Disorder Mother Family Medical History: Cancer, Dementia, Hypertension Additional Family Medical History / Comment(s): Mother had a RBBB.MELANOMA Brother(s) History Unknown: Yes Family Medical History: AFIB Additional Family Medical History / Comment(s): Pt has 4 brothers with AFIB. Medications and Allergies Home Medications Medication Instructions Recorded Confirmed Type Apixaban [Eliquis] 5 mg PO BID 06/01/21 09/30/24 History Carbidopa-Levodopa 25-100 mg 1.5 tab PO TID@0900,1330,1830 06/01/21 09/30/24 History [Sinemet 25-100 mg] Carbidopa-Levodopa ER 50-200Mg 1 tab PO HS 12/06/22 09/30/24 History [Sinemet CR 50-200 mg] Aspirin 81 mg PO DAILY #90 tab 09/28/24 09/30/24 Rx Atorvastatin [Lipitor] 40 mg PO HS #90 tab 09/28/24 09/30/24 Rx Dapagliflozin Propanediol [Farxiga] 10 mg PO DAILY #90 tab 09/28/24 09/30/24 Rx Isosorbide Mononitrate ER [Imdur] 30 mg PO DAILY #90 tab 09/28/24 09/30/24 Rx Metoprolol Tartrate [Lopressor] 50 mg PO BID #90 tab 09/28/24 09/30/24 Rx Amiodarone [Cordarone] See Taper PO DIRECTED 09/30/24 09/30/24 History Sacubitril/Valsartan [Entresto 24 1 tab PO BID 09/30/24 09/30/24 History mg-26 mg Tablet] Allergies Allergy/AdvReac Type Severity Reaction Status Date / Time cobalt Allergy Rash/Hives Verified 09/30/24 09:28 ferrous sulfate Allergy Rash/Hives Verified 09/30/24 09:28 nickel Allergy Rash/Hives Verified 09/30/24 09:28 norfloxacin [From Noroxin] Allergy Rash/Hives Verified 09/30/24 09:28 codeine AdvReac Nausea & Verified 09/30/24 09:28 Vomiting heparin AdvReac see comment Verified 09/30/24 09:28 Physical Exam Vitals: Vital Signs Temp Pulse Resp BP Pulse Ox 09/30/24 13:00 64 15 120/59 97 09/30/24 12:45 61 149/75 97 09/30/24 12:30 142/71 09/30/24 12:15 61 14 134/60 96 09/30/24 12:00 59 L 16 133/66 95 09/30/24 11:45 60 14 120/62 96 09/30/24 11:30 64 26 H 122/63 96 09/30/24 11:20 59 L 16 122/63 95 09/30/24 11:10 98.8 F 65 19 144/70 97 09/30/24 11:00 98.8 F 69 18 139/68 96 09/30/24 10:54 14 95 09/30/24 09:50 80 16 107/55 96 09/30/24 09:30 84/54 09/30/24 09:25 81 16 100/46 95 09/30/24 09:20 99/46 09/30/24 09:15 93/48 09/30/24 08:11 78/35 09/30/24 08:06 114 H 68/38 09/30/24 08:00 117 H 63/47 09/30/24 07:45 64/30 09/30/24 07:30 73/32 09/30/24 07:12 97.9 F 137 H 18 77/32 96 Intake and Output 09/29/24 09/30/24 09/30/24 22:59 06:59 14:59 Intake Total 62.042 Output Total 300 Balance -237.958 Intake: Intake, IV Titration 62.042 Amount Norepinephrine 8 mg In 62.042 Sodium Chloride 0.9% 250 ml @ 0.03 MCG/KG/MIN 6. 056 mls/hr IV .Q24H [facility] Rx#:[id number] Output: Urine 300 Other: # Voids 0 Weight 104.326 kg General: Revealed a 68-year-old female in no distress on room air Skin: Skin is warm and dry and no rashes or lesions are noted. Eye: Pupils are equal, round and reactive to light, extra-ocular movements are intact; there is normal conjunctiva bilaterally. Ears, nose, mouth and throat: There are moist mucous membranes and no oral lesions. Neck: The neck is supple, there is no tenderness or JVD. Cardiovascular: T irregular irregular rhythm, no S3 gallop, no murmur Respiratory: Clear bilaterally no rhonchi no wheezes Gastrointestinal: Soft, non-distended, non-tender abdomen without masses or organomegaly noted. Musculoskeletal: No deformities and no limitation range of motion Neurological: CN II-XII intact, Cranial nerves III through XII are intact. There are no obvious motor or sensory deficits Psychiatric: Normal mood, affect and no mental status examination Results - Laboratory Findings CBC and BMP: 09/30/24 07:27 09/30/24 07:27 PT/INR, D-dimer PT 11.8 sec (10.0-12.5) 09/30/24 07:27 INR 1.1 (<1.2) 09/30/24 07:27 Abnormal lab findings: Abnormal Labs 09/30/24 09/30/24 09/30/24 07:23 07:27 07:27 RBC 3.26 L Hgb 10.6 L Hct 31.7 L MCV 97.2 H MCH 32.5 H MPV 12.6 H Potassium 3.2 L Carbon Dioxide 19 L Plasma Lactic Acid [place] 2.9 H* Magnesium 1.3 L Total Protein 5.5 L Albumin 3.3 L - Diagnostic Findings Chest x-ray: image reviewed (Chest x-ray was reviewed and there is no evidence of acute cardiopulmonary disease) Additional studies: Echocardiogram showed EF of 40 to 45%, mild mitral regurgitation, and increased left ventricular systolic volume Assessment and Plan Assessment: Impression: Paroxysmal atrial fibrillation with RVR Nonischemic cardiomyopathy One-vessel coronary artery disease/diagonal branch. History of Parkinson disease Hypotension in the setting of atrial fibrillation with RVR and underlying cardiomyopathy/LV dysfunction Recommendation: Admit to ICU Resume patient's cardiac meds as given at home Continue amiodarone Support blood pressure with norepinephrine and titrate accordingly Echocardiogram report was noted Continue Lovenox 100 mg subcu every 12 hours GI prophylaxis Cardiology is considering cardioversion on this patient later today. Will continue to follow, discussed her condition with cardiology at bedside Time with Patient: Greater than 30
--- NOTE | 2024-09-30 15:00 | P.HPIM ---
History of Present Illness H&P Date: 09/30/24 Chief Complaint: Chest pain, rapid heart rate The patient is a 68y/o F w/ a hx of CAD recently hospitalized for NSTEMI and angiography without stent placement who presented to the ED today for complaints of chest pain, back pain, SOB, and a rapid heart rate that began earlier this morning. The patient also mentions a cough (did not see her sputum) and a generalized headache. She reports that the headache began since she was discharged from the hospital. Tylenol did not help with the pain. The patient says that she feels very cold currently but denies any other symptoms including changes in vision, LOC, abdominal pain, n/v/d. Review of Systems ROS negative except for as listed in HPI Past Medical History Past Medical History: Atrial Fibrillation, Myocardial Infarction (NE) Additional Past Medical History / Comment(s): 11/14/14 ADMITTED WITH CHEST DISCOMFORT. 08/14/14 Pt presented to [facility] ER with complaints of irregular heart beat this AM. She did have some SOB and palpitations. Other HX: Afib with RVR with admission 08/06/13 here at [facility]. Generalized Arthiritis, parkinson disease Last Myocardial Infarction Date:: 2012 History of Any Multi-Drug Resistant Organisms: None Reported Past Surgical History: Adenoidectomy, Breast Surgery, Cardiac Ablation, Section, Cholecystectomy, Heart Catheterization, Tonsillectomy Additional Past Surgical History / Comment(s): Left total shoulder surgery. R knee arthroscopy x 4, 2 C-Sections, R breast bx-benign,cataracts Past Anesthesia/Blood Transfusion Reactions: Motion Sickness Additional Past Anesthesia/Blood Transfusion Reaction / Comment(s): NAUSEA FROM ANESTHESIA. NO REACTIONS FROM BLOOD. Past Psychological History: No Psychological Hx Reported Smoking Status: Former smoker Past Alcohol Use History: Occasional Past Drug Use History: None Reported - Past Family History Father History Unknown: Yes Family Medical History: AFIB, Vascular Disorder Mother Family Medical History: Cancer, Dementia, Hypertension Additional Family Medical History / Comment(s): Mother had a RBBB.MELANOMA Brother(s) History Unknown: Yes Family Medical History: AFIB Additional Family Medical History / Comment(s): Pt has 4 brothers with AFIB. Medications and Allergies Home Medications Medication Instructions Recorded Confirmed Type Apixaban [Eliquis] 5 mg PO BID 06/01/21 09/30/24 History Carbidopa-Levodopa 25-100 mg 1.5 tab PO TID@0900,1330,1830 06/01/21 09/30/24 History [Sinemet 25-100 mg] Carbidopa-Levodopa ER 50-200Mg 1 tab PO HS 12/06/22 09/30/24 History [Sinemet CR 50-200 mg] Aspirin 81 mg PO DAILY #90 tab 09/28/24 09/30/24 Rx Atorvastatin [Lipitor] 40 mg PO HS #90 tab 09/28/24 09/30/24 Rx Dapagliflozin Propanediol [Farxiga] 10 mg PO DAILY #90 tab 09/28/24 09/30/24 Rx Isosorbide Mononitrate ER [Imdur] 30 mg PO DAILY #90 tab 09/28/24 09/30/24 Rx Metoprolol Tartrate [Lopressor] 50 mg PO BID #90 tab 09/28/24 09/30/24 Rx Amiodarone [Cordarone] See Taper PO DIRECTED 09/30/24 09/30/24 History Sacubitril/Valsartan [Entresto 24 1 tab PO BID 09/30/24 09/30/24 History mg-26 mg Tablet] Allergies Allergy/AdvReac Type Severity Reaction Status Date / Time cobalt Allergy Rash/Hives Verified 09/30/24 09:28 ferrous sulfate Allergy Rash/Hives Verified 09/30/24 09:28 nickel Allergy Rash/Hives Verified 09/30/24 09:28 norfloxacin [From Noroxin] Allergy Rash/Hives Verified 09/30/24 09:28 codeine AdvReac Nausea & Verified 09/30/24 09:28 Vomiting heparin AdvReac see comment Verified 09/30/24 09:28 Physical Exam Vitals: Vital Signs Temp Pulse Resp BP Pulse Ox 09/30/24 09:50 80 16 107/55 96 09/30/24 09:30 84/54 09/30/24 09:25 81 16 100/46 95 09/30/24 09:20 99/46 09/30/24 09:15 93/48 09/30/24 08:11 78/35 09/30/24 08:06 114 H 68/38 09/30/24 08:00 117 H 63/47 09/30/24 07:45 64/30 07/04/25 07:30 73/32 09/30/24 07:12 97.9 F 137 H 18 77/32 96 Intake and Output 09/29/24 09/30/24 09/30/24 22:59 06:59 14:59 Intake Total 0.572 Balance 0.572 Intake: Intake, IV Titration 0.572 Amount Norepinephrine 8 mg In 0.572 Sodium Chloride 0.9% 250 ml @ 0.03 MCG/KG/MIN 6. 056 mls/hr IV .Q24H [facility] Rx#:[id number] Other: Weight 104.326 kg Vital signs reviewed General: No acute distress, Patient able to converse with me, Tired and pale appearing Derm: no unusual rashes/lesions, warm Head: atraumatic, normocephalic, symmetric Eyes: EOMI, anicteric sclera, pupils equal round reactive to light ENT: Nose and ears atraumatic Neck: No cervical lymphadenopathy, trachea midline, supple Mouth: no lip lesion, mucus membranes moist Cardiovascular: Irregularly irregular rhythm, Tachycardic, 1+ bilateral LE edema Lungs: CTA bilateral, no rhonchi, no rales, no accessory muscle use Abdominal: soft, nontender to palpation, no guarding Ext: muscle strength 5 out of 5 in all 4 extremities grossly, no gross muscle atrophy Neuro: CN II-XI grossly intact, no gross focal neuro deficits Psych: Alert, oriented to person, place, and time Results CBC & Chem 7: 09/30/24 07:27 09/30/24 07:27 Labs: Abnormal Lab Results - Last 24 Hours (Table) 09/30/24 09/30/24 09/30/24 Range/Units 07:23 07:27 07:27 RBC 3.26 L (4.10-5.20) 10*6/uL Hgb 10.6 L (12.0-15.0) g/dL Hct 31.7 L (37.2-46.3) % MCV 97.2 H (80.0-97.0) fL MCH 32.5 H (27.0-32.0) pg MPV 12.6 H (9.5-12.2) fL Potassium 3.2 L (3.5-5.1) mmol/L Carbon Dioxide 19 L (22-30) mmol/L Plasma Lactic Acid [place] 2.9 H* (0.7-2.0) mmol/L Magnesium 1.3 L (1.6-2.3) mg/dL Total Protein 5.5 L (6.3-8.2) g/dL Albumin 3.3 L (3.5-5.0) g/dL Assessment and Plan Assessment: Assessment/Plan: The patient is a 68 year old female recently admitted for NSTEMI status post cardiac catheterization without stent placement here for evaluation of chest pain, SOB, and a rapid heart rate that began earlier this morning. 1. Cardiogenic shock secondary to A-fib with RVR Lactic acidosis Electrolyte abnormalities including hypokalemia and hypomagnesemia #Patient's BP on arrival showed a MAP of 40-50 and a HR of 110s to 140s. #Pulm Crit consulted #Cardiology consulted #Lactic acid on arrival 2.9, Bicarb of 19, and anion gap of 13. #Echo demonstrating LVEF of 40-45% and mild mitral valve regurgitation without evidence of mitral valve prolapse or stenosis. No evidence of pericardial effusion. -Patient placed on norepinephrine drip- continue to titrate -Patient on amiodarone drip. -Held eliquis, switch to Lovenox subcu 100 mg every 12 hours -Repleting electrolytes as needed -Repeat BMP and mag ordered for 12:00 2. Chest pain, back pain, SOB #Likely secondary to RVR in the setting of known CAD #EKG negative for acute NE #CXR unremarkable -Continue to monitor 3. Cough #Negative CXR -Monitor once patient's condition improves 4. Hx of CAD and recent NSTEMI Ischemic cardiomyopathy -Continue home aspirin and atorvastatin -Hold heart failure medications 5. Hx of parkinson's disease -Continue home carbidopa-Levodopa DVT prophylaxis: Lovenox 100 mg SQ Q12HR Renny Chisholm MD PGY-1 TY Dictation was produced using [employer] dictation software. please excuse any grammatical, word or spelling errors. I have seen and evaluated the patient today. Discussed with the resident and agree with the residents finding and plan as documented in the resident's note. Changes highlighted in blue font.
[2024-09-30 16:18] LABS: Potassium 3.9 mmol/L (3.5-5.1)
[2024-09-30 18:04] LABS: African American GFR (CKD) >90 (>60 ml/min/1.73 sqM); Anion Gap 7 mmol/L; Blood Urea Nitrogen 10 mg/dL (7-17); Calcium 8.3 mg/dL (8.4-10.2); Carbon Dioxide 23 mmol/L (22-30); Chloride 106 mmol/L (98-107); Glucose 118 mg/dL (74-99); Magnesium 1.9 mg/dL (1.6-2.3); Non-African American GFR(CKD) >90 (>60 ml/min/1.73 sqM); Sodium 136 mmol/L (137-145)
[2024-09-30] MEDS: PANTOPRAZOLE 40 MG/10 ML VIAL IVP SCH (18:55)
[2024-09-30] MEDS: ATORVASTATIN 40 MG TAB PO SCH (21:35)
[2024-09-30] MEDS: CARBIDOPA-LEVODOPA ER 50-200MG 1 EACH TABLET.ER PO SCH (21:35)
[2024-10-01 03:11] LABS: Basophils # (A) 0.01 10*3/uL (0.00-0.10); Basophils % (A) 0.2 %; Eosinophils # (A) 0.13 10*3/uL (0.04-0.35); Eosinophils % (A) 3.1 %; HCT 29.5 % (37.2-46.3); HGB 9.4 g/dL (12.0-15.0); Lymphocytes # (A) 1.48 10*3/uL (0.90-5.00); Lymphocytes % (A) 35.0 %; MCH 31.4 pg (27.0-32.0); MCHC 31.9 g/dL (32.0-37.0); MCV 98.7 fL (80.0-97.0); Monocytes # (A) 0.44 10*3/uL (0.20-1.00); Monocytes % (A) 10.4 %; Neutrophils # (A) 2.16 10*3/uL (1.80-7.70); Neutrophils % (A) 51.1 %; Platelet Count 141 10*3/uL (140-440); RBC 2.99 10*6/uL (4.10-5.20); RDW 14.7 % (11.5-14.5); WBC 4.23 10*3/uL (4.50-10.00)
[2024-10-01 03:31] LABS: African American GFR (CKD) >90 (>60 ml/min/1.73 sqM); Anion Gap 6 mmol/L; Blood Urea Nitrogen 9 mg/dL (7-17); Calcium 8.6 mg/dL (8.4-10.2); Carbon Dioxide 24 mmol/L (22-30); Chloride 107 mmol/L (98-107); Glucose 90 mg/dL (74-99); Non-African American GFR(CKD) >90 (>60 ml/min/1.73 sqM); Potassium 3.7 mmol/L (3.5-5.1); Sodium 137 mmol/L (137-145)
[2024-10-01] MEDS: POTASSIUM CHLORIDE ER 20 MEQ TAB.ER PO SCH (04:35)
[2024-10-01] MEDS: PANTOPRAZOLE 40 MG TABLET PO SCH (09:00)
--- NOTE | 2024-10-01 10:47 | P.PN ---
Subjective Progress Note Date: 10/01/24 Principal diagnosis: Paroxysmal atrial fibrillation with RVR This is a 68-year-old female known history of coronary artery disease documented on previous cardiac catheterization showed severe coronary artery disease involving the diagonal branch of the LAD which was 2.5 mm in diameter. Cardiology chose not to proceed with PCI because of nickel allergy. Patient has known history of nonischemic cardiomyopathy and paroxysmal atrial fibrillation as well as history of Parkinson disease. Her ejection fraction on recent echocardiogram was 35%. Patient was discharged recently from the hospital in stable condition however she presented back today with multiple complaints inc luding palpitations, shortness of breath, and some vague chest pain. EKG in the ER showed atrial fibrillation with RVR with diffuse ST changes similar to previous EKG patient was also noted to be hypotensive requiring norepinephrine. Had to be placed on amiodarone and norepinephrine then I was notified about this patient and accepted the patient to transfer to ICU. Cardiology is considering cardioversion on this patient. Discussed her condition with Dr. Nilsa perez in the ER at bedside. In summary we have a patient with nonischemic cardiomyopathy ejection fraction of 35% presented with A-fib and RVR, and hypotension requiring amiodarone and requiring norepinephrine. She does have history of coronary artery disease of 1 vessel/diagonal branch of LAD and was not stented because of nickel allergy. Patient was seen and examined today on 10/01/2024, patient remains in the ICU, remains on amiodarone at 0.5 mg/min, patient is now in sinus rhythm, converted with amiodarone, did not require cardioversion. Patient is on room air, relatively asymptomatic denies any shortness of breath denies any cough no wheezing no chest pain. No palpitations. WBC count is 4.2 hemoglobin 9.4 electrolytes abnormal renal profile is normal, no chest x-ray was done today. Objective - Vital Signs Vital signs: Vital Signs Temp 98.7 F 10/01/24 00:00 Pulse 63 10/01/24 10:00 Resp 15 10/01/24 10:00 BP 115/57 10/01/24 10:00 Pulse Ox 96 10/01/24 10:00 FiO2 Intake & Output 09/30/24 10/01/24 10/01/24 18:59 06:59 18:59 Intake Total 62.042 250 Output Total 700 825 0 Balance -637.958 -575 0 Weight 104.326 kg 116 kg Intake: Intake, IV Titration 62.042 250 Amount Amiodarone 450 mg In 250 Dextrose 5% in Water 250 ml @ 0.5 MG/MIN 16.667 mls/hr IV .Q15H [facility] Rx#: [id number] Norepinephrine 8 mg In 62.042 Sodium Chloride 0.9% 250 ml @ 0.03 MCG/KG/MIN 6. 056 mls/hr IV .Q24H [facility] Rx#:[id number] Output: Urine 700 825 0 Other: # Voids 1 0 1 - Exam General: Revealed a 68-year-old female in no distress on room air Skin: Skin is warm and dry and no rashes or lesions are noted. Eye: Pupils are equal, round and reactive to light, extra-ocular movements are intact; there is normal conjunctiva bilaterally. Ears, nose, mouth and throat: There are moist mucous membranes and no oral lesions. Neck: The neck is supple, there is no tenderness or JVD. Cardiovascular: Normal S1 and S2, no S3 gallop, no murmur Respiratory: Clear bilaterally no rhonchi no wheezes Gastrointestinal: Soft, non-distended, non-tender abdomen without masses or organomegaly noted. Musculoskeletal: No deformities and no limitation range of motion Neurological: CN II-XII intact, Cranial nerves III through XII are intact. There are no obvious motor or sensory deficits Psychiatric: Normal mood, affect and no mental status examination - Labs CBC & Chem 7: 10/01/24 02:57 10/01/24 02:57 Labs: Abnormal Lab Results - Last 24 Hours (Table) 09/30/24 10/01/24 Range/Units 15:53 02:57 WBC 4.23 L (4.50-10.00) 10*3/uL RBC 2.99 L (4.10-5.20) 10*6/uL Hgb 9.4 L (12.0-15.0) g/dL Hct 29.5 L (37.2-46.3) % MCV 98.7 H (80.0-97.0) fL MCHC 31.9 L (32.0-37.0) g/dL Sodium 136 L (137-145) mmol/L Glucose 118 H (74-99) mg/dL Calcium 8.3 L (8.4-10.2) mg/dL Assessment and Plan Assessment: Impression: Paroxysmal atrial fibrillation with RVR Nonischemic cardiomyopathy One-vessel coronary artery disease/diagonal branch. History of Parkinson disease Hypotension in the setting of atrial fibrillation with RVR and underlying cardiomyopathy/LV dysfunction Recommendation: Transfer patient to 3 S. today/cardiac floor. Continue amiodarone may transition to oral amiodarone as per cardiology sometime later today Norepinephrine is presently on hold Continue Lovenox 100 mg subcu every 12 hours Continue GI prophylaxis Will continue to follow. Time with Patient: Less than 30
--- NOTE | 2024-10-01 14:07 | P.PN ---
Subjective Progress Note Date: 10/01/24 Principal diagnosis: The patient reports feeling much better today. Able to get up from bed, sit in chair, and eat her meal. Denies any current chest pain, SOB, or other new symptoms. Objective - Vital Signs Vital signs: Vital Signs Temp 97.8 F 10/01/24 12:00 Pulse 69 10/01/24 12:00 Resp 14 10/01/24 12:00 BP 112/94 10/01/24 12:00 Pulse Ox 97 10/01/24 12:00 FiO2 Intake & Output 09/30/24 10/01/24 10/01/24 18:59 06:59 18:59 Intake Total 62.042 250 Output Total 700 825 0 Balance -637.958 -575 0 Weight 104.326 kg 116 kg Intake: Intake, IV Titration 62.042 250 Amount Amiodarone 450 mg In 250 Dextrose 5% in Water 250 ml @ 0.5 MG/MIN 16.667 mls/hr IV .Q15H VANE Rx#: [id number] Norepinephrine 8 mg In 62.042 Sodium Chloride 0.9% 250 ml @ 0.03 MCG/KG/MIN 6. 056 mls/hr IV .Q24H VANE Rx#:[id number] Output: Urine 700 825 0 Other: # Voids 1 0 1 - Exam Vital signs reviewed General: No acute distress, Non-toxic appearing Derm: no unusual rashes/lesions, warm Head: atraumatic, normocephalic, symmetric Eyes: EOMI, anicteric sclera, pupils equal round reactive to light ENT: Nose and ears atraumatic Neck: No cervical lymphadenopathy, trachea midline, supple Mouth: no lip lesion, mucus membranes moist Cardiovascular: Regular rate and rhythm, 1+ bilateral LE edema Lungs: CTA bilateral, no rhonchi, no rales, no accessory muscle use Abdominal: soft, nontender to palpation, no guarding Ext: muscle strength 5 out of 5 in all 4 extremities grossly, no gross muscle atrophy Neuro: CN II-XI grossly intact, no gross focal neuro deficits Psych: Alert, oriented to person, place, and time - Labs CBC & Chem 7: 10/01/24 02:57 10/01/24 02:57 Labs: Abnormal Lab Results - Last 24 Hours (Table) 07/04/25 07/05/25 Range/Units 15:53 02:57 WBC 4.23 L (4.50-10.00) 10*3/uL RBC 2.99 L (4.10-5.20) 10*6/uL Hgb 9.4 L (12.0-15.0) g/dL Hct 29.5 L (37.2-46.3) % MCV 98.7 H (80.0-97.0) fL MCHC 31.9 L (32.0-37.0) g/dL Sodium 136 L (137-145) mmol/L Glucose 118 H (74-99) mg/dL Calcium 8.3 L (8.4-10.2) mg/dL Assessment and Plan Assessment: Data reviewed today: WBC 4.23, hemoglobin 11.4, potassium 3.7, creatinine 0.5., Magnesium 2 Assessment/plan: The patient is a 68 year old female recently admitted for NSTEMI status post cardiac catheterization without stent placement here for evaluation of chest pain, SOB, and a rapid heart rate that began earlier this morning. 1. Cardiogenic shock secondary to A-fib with RVR (resolved) Lactic acidosis, resolved Electrolyte abnormalities including hypokalemia and hypomagnesemia, resolved #Patient's BP on arrival showed a MAP of 40-50 and a HR of 110s to 140s. #Pulm Crit consulted #Cardiology consulted #Lactic acid on arrival 2.9, Bicarb of 19, and anion gap of 13. #Echo demonstrating LVEF of 40-45% and mild mitral valve regurgitation without evidence of mitral valve prolapse or stenosis. No evidence of pericardial effusion. #Repeat EKG demonstrates successful conversion to sinus rhythm -Norepinephrine drip discontinued -Amiodarone drip discontinued -Contine to hold eliquis, switched to Lovenox subcu 100 mg every 12 hours on admission -Holding home Entresto, continued asa and lipitor -Repleting electrolytes as needed - On amiodarone 400 twice daily, metoprolol 12.5 daily 2. Chest pain, back pain, SOB (resolved) #Likely secondary to RVR in the setting of known CAD #EKG negative for acute IL #CXR unremarkable -Continue to monitor 3. Cough #Negative CXR -Monitor symptoms while admitted 4. Hx of CAD and recent NSTEMI Ischemic cardiomyopathy -Continue home aspirin and atorvastatin -Holding home Entresto 5. Hx of parkinson's disease -Continue home carbidopa-Levodopa DVT prophylaxis: Eliquis 5 twice daily Disposition: Likely home I have seen and evaluated the patient today. Discussed with the resident and agree with the residents finding and plan as documented in the resident's note. Changes highlighted in blue font.
--- NOTE | 2024-10-01 14:11 | P.PN ---
Subjective Progress Note Date: 10/01/24 The patient is a pleasant 68-year-old female patient who is known to our service from before who was just discharged from the hospital few days ago. She does have history of CAD documented on recent heart catheterization as well as nonischemic cardiomyopathy and paroxysmal atrial fibrillation as well as history of Parkinson disease. The patient presented initially few days ago on September 24 with symptoms of chest discomfort and she was ruled in for acute coronary syndrome. The echo at that point showed cardiomyopathy with EF around 35% which has dropped compared to an echo was performed in 2021 and at that point that echo showed an EF around 45%. Also she was ruled in for acute non-ST elevation myocardial infarction. With that she underwent a heart catheterization and that revealed severe disease involving the diagonal branch of the LAD which was about 2.5 mm in diameter. Given the history of nickel allergy PCI was not performed. She was discharged in stable medical condition on cardiomyopathy medication except that she refused to take SGLT2 inhibitors. 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 She was experiencing symptoms of shortness of breath and chest pain and feeling dizzy and lightheaded. Also she felt weak. In the ER she underwent an evaluation including an EKG showing A-fib with RVR with diffuse ST changes similar to previous EKG concerning for global ischemia likely to be triggered by the A-fib with RVR. Also she was hypotensive. She was started on amiodarone and subsequently norepinephrine. When she was seen and evaluated this morning she was feeling already better. Troponin first set came to be unremarkable. The rest of the workup overall came to be unremarkable with no elevated WBC. She had no fever nor chills. ECHO 09/30/24 with EF 40-45%, no pericardial effusion. 10/01/24 Seen in ICU. OOB in chair. She has remained in sinus rhythm. No chest pain or pressure. No shortness of breath, dizziness. She still feels some generalized weakness. PHYSICAL EXAMINATION: This is a 68-year-old female in no apparent distress at the time of my examination. HEENT: Head is atraumatic, normocephalic. Pupils are equal, round. Sclerae anicteric. Conjunctivae are clear. Mucous membranes of the mouth are moist. CHEST EXAMINATION: Lungs are clear to auscultation. No chest wall tenderness is noted on palpation or with deep breathing. HEART EXAMINATION: Heart regular rate and rhythm. S1, S2 heard. No murmurs, gallops or rub. ABDOMEN: Soft, nontender. Bowel sounds are heard. EXTREMITIES: 2+ peripheral pulses with no evidence of peripheral edema and no calf tenderness noted. NEUROLOGIC EXAMINATION: Patient is awake, alert and oriented x3. Assessment A-fib with RVR in somebody with paroxysmal atrial fibrillation and symptomatic atrial fibrillation Nonischemic cardiomyopathy with EF around 35% documented on recent heart catheterization CAD with severe disease involving the diagonal branch in someone with nickel allergy Parkinson disease Plan OK to downgrade to 3S. Cardiomyopathy may be related to Takotsubo's. Start Metoprolol, aspirin, Eliquis Slowly resume the patient back on the cardiomyopathy medications once the blood pressure remains stable Likely DC home tomorrow if stable. I am dictating on behalf of Dr. Gerhard Wilson's history/physical and assessment/plan. Objective - Vital Signs Vital signs: Vital Signs Temp 97.8 F 10/01/24 12:00 Pulse 69 10/01/24 12:00 Resp 14 10/01/24 12:00 BP 112/94 10/01/24 12:00 Pulse Ox 97 10/01/24 12:00 FiO2 Intake & Output 09/30/24 10/01/24 10/01/24 18:59 06:59 18:59 Intake Total 62.042 250 Output Total 700 825 0 Balance -637.958 -575 0 Weight 104.326 kg 116 kg Intake: Intake, IV Titration 62.042 250 Amount Amiodarone 450 mg In 250 Dextrose 5% in Water 250 ml @ 0.5 MG/MIN 16.667 mls/hr IV .Q15H VANE Rx#: [id number] Norepinephrine 8 mg In 62.042 Sodium Chloride 0.9% 250 ml @ 0.03 MCG/KG/MIN 6. 056 mls/hr IV .Q24H VANE Rx#:[id number] Output: Urine 700 825 0 Other: # Voids 1 0 1 - Labs CBC & Chem 7: 10/01/24 02:57 10/01/24 02:57 Labs: Abnormal Lab Results - Last 24 Hours (Table) 09/30/24 10/01/24 Range/Units 15:53 02:57 WBC 4.23 L (4.50-10.00) 10*3/uL RBC 2.99 L (4.10-5.20) 10*6/uL Hgb 9.4 L (12.0-15.0) g/dL Hct 29.5 L (37.2-46.3) % MCV 98.7 H (80.0-97.0) fL MCHC 31.9 L (32.0-37.0) g/dL Sodium 136 L (137-145) mmol/L Glucose 118 H (74-99) mg/dL Calcium 8.3 L (8.4-10.2) mg/dL
[2024-10-01] MEDS: METOPROLOL SUCCINATE (ER) 25 MG TAB.ER.24H PO SCH (14:43)
[2024-10-01 16:31] VITALS: PULSE 60
[2024-10-01] MEDS: AMIODARONE 200 MG TAB PO SCH (20:24)
[2024-10-01] MEDS: APIXABAN 5 MG TAB PO SCH (20:25)
[2024-10-02 00:04] VITALS: RESP 16
[2024-10-02 03:34] LABS: Basophils # (A) 0.02 10*3/uL (0.00-0.10); Basophils % (A) 0.6 %; Eosinophils # (A) 0.16 10*3/uL (0.04-0.35); Eosinophils % (A) 4.7 %; HCT 30.2 % (37.2-46.3); HGB 9.6 g/dL (12.0-15.0); Lymphocytes # (A) 1.22 10*3/uL (0.90-5.00); Lymphocytes % (A) 36.1 %; MCH 31.6 pg (27.0-32.0); MCHC 31.8 g/dL (32.0-37.0); MCV 99.3 fL (80.0-97.0); Monocytes # (A) 0.44 10*3/uL (0.20-1.00); Monocytes % (A) 13.0 %; Neutrophils # (A) 1.54 10*3/uL (1.80-7.70); Neutrophils % (A) 45.6 %; Platelet Count 145 10*3/uL (140-440); RBC 3.04 10*6/uL (4.10-5.20); RDW 14.8 % (11.5-14.5); WBC 3.38 10*3/uL (4.50-10.00)
[2024-10-02 03:45] LABS: African American GFR (CKD) >90 (>60 ml/min/1.73 sqM); Anion Gap 7 mmol/L; Blood Urea Nitrogen 8 mg/dL (7-17); Calcium 9.0 mg/dL (8.4-10.2); Carbon Dioxide 26 mmol/L (22-30); Chloride 104 mmol/L (98-107); Glucose 85 mg/dL (74-99); Non-African American GFR(CKD) >90 (>60 ml/min/1.73 sqM); Potassium 4.1 mmol/L (3.5-5.1); Sodium 137 mmol/L (137-145)
--- NOTE | 2024-10-02 12:11 | P.PN ---
Subjective Progress Note Date: 10/02/24 Principal diagnosis: Paroxysmal atrial fibrillation with RVR This is a 68-year-old female known history of coronary artery disease documented on previous cardiac catheterization showed severe coronary artery disease involving the diagonal branch of the LAD which was 2.5 mm in diameter. Cardiology chose not to proceed with PCI because of nickel allergy. Patient has known history of nonischemic cardiomyopathy and paroxysmal atrial fibrillation as well as history of Parkinson disease. Her ejection fraction on recent echocardiogram was 35%. Patient was discharged recently from the hospital in stable condition however she presented back today with multiple complaints inc luding palpitations, shortness of breath, and some vague chest pain. EKG in the ER showed atrial fibrillation with RVR with diffuse ST changes similar to previous EKG patient was also noted to be hypotensive requiring norepinephrine. Had to be placed on amiodarone and norepinephrine then I was notified about this patient and accepted the patient to transfer to ICU. Cardiology is considering cardioversion on this patient. Discussed her condition with Dr. Nilsa perez in the ER at bedside. In summary we have a patient with nonischemic cardiomyopathy ejection fraction of 35% presented with A-fib and RVR, and hypotension requiring amiodarone and requiring norepinephrine. She does have history of coronary artery disease of 1 vessel/diagonal branch of LAD and was not stented because of nickel allergy. Patient was seen and examined today on 10/01/2024, patient remains in the ICU, remains on amiodarone at 0.5 mg/min, patient is now in sinus rhythm, converted with amiodarone, did not require cardioversion. Patient is on room air, relatively asymptomatic denies any shortness of breath denies any cough no wheezing no chest pain. No palpitations. WBC count is 4.2 hemoglobin 9.4 electrolytes abnormal renal profile is normal, no chest x-ray was done today. Patient was seen today on 10/02/2024, patient is doing much better today, she is on room air, not in any distress, sitting up in the chair, patient is supposed to go either to 3 S. today or even consider discharge home if cleared by cardiology. Her atrial fibrillation is better controlled. WBC 3.3 hemoglobin 9.6 electrolytes are normal renal profile is normal patient was seen by cardiology, and felt that her cardiomyopathy again is not ischemic in nature most likely secondary to Takotsubo syndrome. Objective - Vital Signs Vital signs: Vital Signs Temp 98.3 F 10/02/24 04:00 Pulse 60 10/01/24 16:00 Resp 16 10/02/24 04:00 BP 140/72 10/02/24 04:00 Pulse Ox 96 10/02/24 04:00 FiO2 Intake & Output 10/01/24 10/02/24 10/02/24 18:59 06:59 18:59 Output Total 400 Balance -400 Weight 109.8 kg Output: Urine 400 Other: # Voids 1 1 2 - Exam General: Revealed a 68-year-old female in no distress on room air Skin: Skin is warm and dry and no rashes or lesions are noted. Eye: Pupils are equal, round and reactive to light, extra-ocular movements are intact; there is normal conjunctiva bilaterally. Ears, nose, mouth and throat: There are moist mucous membranes and no oral lesions. Neck: The neck is supple, there is no tenderness or JVD. Cardiovascular: Normal S1 and S2, no S3 gallop, no murmur Respiratory: Clear bilaterally no rhonchi no wheezes Gastrointestinal: Soft, non-distended, non-tender abdomen without masses or organomegaly noted. Musculoskeletal: No deformities and no limitation range of motion Neurological: CN II-XII intact, Cranial nerves III through XII are intact. There are no obvious motor or sensory deficits Psychiatric: Normal mood, affect and no mental status examination - Labs CBC & Chem 7: 10/02/24 03:03 10/02/24 03:03 Labs: Abnormal Lab Results - Last 24 Hours (Table) 10/02/24 Range/Units 03:03 WBC 3.38 L (4.50-10.00) 10*3/uL RBC 3.04 L (4.10-5.20) 10*6/uL Hgb 9.6 L (12.0-15.0) g/dL Hct 30.2 L (37.2-46.3) % MCV 99.3 H (80.0-97.0) fL MCHC 31.8 L (32.0-37.0) g/dL Neutrophils # 1.54 L (1.80-7.70) 10*3/uL Assessment and Plan Assessment: Impression: Paroxysmal atrial fibrillation with RVR, under control Nonischemic cardiomyopathy One-vessel coronary artery disease/diagonal branch. History of Parkinson disease Hypotension in the setting of atrial fibrillation with RVR and underlying cardiomyopathy/LV dysfunction Recommendation: Considering the patient doing well, she could be considered for discharge home if cleared by cardiology If not could be transferred to 3 S./cardiology floor. I have a feeling the patient will be cleared for discharge sometime later today by cardiology on the case. 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 Time with Patient: Less than 30
[2024-10-02 12:28] VITALS: BP 129/62; TEMP 98
--- NOTE | 2024-10-02 12:45 | P.PN ---
Subjective Progress Note Date: 10/02/24 The patient is a pleasant 68-year-old female patient who is known to our service from before who was just discharged from the hospital few days ago. She does have history of CAD documented on recent heart catheterization as well as nonischemic cardiomyopathy and paroxysmal atrial fibrillation as well as history of Parkinson disease. The patient presented initially few days ago on September 24 with symptoms of chest discomfort and she was ruled in for acute coronary syndrome. The echo at that point showed cardiomyopathy with EF around 35% which has dropped compared to an echo was performed in 2021 and at that point that echo showed an EF around 45%. Also she was ruled in for acute non-ST elevation myocardial infarction. With that she underwent a heart catheterization and that revealed severe disease involving the diagonal branch of the LAD which was about 2.5 mm in diameter. Given the history of nickel allergy PCI was not performed. She was discharged in stable medical condition on cardiomyopathy medication except that she refused to take SGLT2 inhibitors. 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 She was experiencing symptoms of shortness of breath and chest pain and feeling dizzy and lightheaded. Also she felt weak. In the ER she underwent an evaluation including an EKG showing A-fib with RVR with diffuse ST changes similar to previous EKG concerning for global ischemia likely to be triggered by the A-fib with RVR. Also she was hypotensive. She was started on amiodarone and subsequently norepinephrine. When she was seen and evaluated this morning she was feeling already better. Troponin first set came to be unremarkable. The rest of the workup overall came to be unremarkable with no elevated WBC. She had no fever nor chills. ECHO 09/30/24 with EF 40-45%, no pericardial effusion. 10/01/24 Seen in ICU. OOB in chair. She has remained in sinus rhythm. No chest pain or pressure. No shortness of breath, dizziness. She still feels some generalized weakness. 10/02/24 Pt seen in ICU. No chest pain or shortness of breath. No dizziness or lightheadedness. PHYSICAL EXAMINATION: This is a 68-year-old female in no apparent distress at the time of my examination. HEENT: Head is atraumatic, normocephalic. Pupils are equal, round. Sclerae anicteric. Conjunctivae are clear. Mucous membranes of the mouth are moist. CHEST EXAMINATION: Lungs are clear to auscultation. No chest wall tenderness is noted on palpation or with deep breathing. HEART EXAMINATION: Heart regular rate and rhythm. S1, S2 heard. No murmurs, gallops or rub. ABDOMEN: Soft, nontender. Bowel sounds are heard. EXTREMITIES: 2+ peripheral pulses with no evidence of peripheral edema and no calf tenderness noted. NEUROLOGIC EXAMINATION: Patient is awake, alert and oriented x3. Assessment A-fib with RVR in somebody with paroxysmal atrial fibrillation and symptomatic atrial fibrillation Nonischemic cardiomyopathy with EF around 35% documented on recent heart catheterization CAD with severe disease involving the diagonal branch in someone with nickel allergy Parkinson disease Plan OK to discharge from cardiac standpoint. Cardiomyopathy may be related to Takotsubo's. Continue Metoprolol, aspirin, Eliquis Advised to monitor blood pressure at home and keep log. Follow up in office in 1 week. I am dictating on behalf of Dr. Gerhard Wilson's history/physical and assessment/plan. Objective - Vital Signs Vital signs: Vital Signs Temp 98.3 F 10/02/24 04:00 Pulse 60 10/01/24 16:00 Resp 16 10/02/24 04:00 BP 140/72 10/02/24 04:00 Pulse Ox 96 10/02/24 04:00 FiO2 Intake & Output 10/01/24 10/02/24 10/02/24 18:59 06:59 18:59 Output Total 400 Balance -400 Weight 109.8 kg Output: Urine 400 Other: # Voids 1 1 2 - Labs CBC & Chem 7: 10/02/24 03:03 10/02/24 03:03 Labs: Abnormal Lab Results - Last 24 Hours (Table) 10/02/24 Range/Units 03:03 WBC 3.38 L (4.50-10.00) 10*3/uL RBC 3.04 L (4.10-5.20) 10*6/uL Hgb 9.6 L (12.0-15.0) g/dL Hct 30.2 L (37.2-46.3) % MCV 99.3 H (80.0-97.0) fL MCHC 31.8 L (32.0-37.0) g/dL Neutrophils # 1.54 L (1.80-7.70) 10*3/uL
--- NOTE | 2024-10-02 13:14 | P.DS ---
Providers Date of admission: 09/30/24 08:52 Expected date of discharge: 10/02/24 Attending physician: Augie Martinez Consults: 09/30/24 08:52 Consult Physician Stat Consulting Provider: Mayra Eddy Consult Reason/Comments: Critical care management Do you want consulting provider notified?: Yes 09/30/24 09:11 Consult Physician Urgent Consulting Provider: Lazarus Krishnan Consult Reason/Comments: Cardiogenic shock Do you want consulting provider notified?: Yes Primary care physician: [facility] Course: Discharge Diagnosis: Cardiogenic shock A-fib with RVR CAD with severe disease involving diagonal branch Nickel allergy Parkinson's disease Cardiomyopathy, possibly ischemic Lactic acidosis Hospital Course: 68y/o F w/ a hx of CAD recently hospitalized for NSTEMI and angiography without stent placement who presented to the ED today for complaints of chest pain, back pain, SOB, and a rapid heart rate. On arrival, patient was tachycardic, laboratory workup significant for normocytic anemia from baseline, lactic acidosis of 2.9, troponin 0.023. EKG showed ST depressions mostly diffuse. Patient was also hypotensive requiring pressors while on amiodarone drip. Patient was admitted to medical ICU. He was seen by cardiology. Converted back to sinus rhythm. New LVEF found to be 40 to 45%. Patient now being discharged on oral amiodarone, some of the heart failure medications now discontinued. Will need to be introduced as outpatient. Patient still needs to follow-up with an social worker health services for her nickel allergy. She will need coronary artery intervention at some point in the future. Completely asymptomatic at the time of discharge. Patient seen and examined at bedside. Vital signs reviewed and stable. General: Nontoxic, no distress, appears at stated age Derm: Warm, dry Head: Atraumatic, normocephalic, symmetric Eyes: EOMI, no lid lag, anicteric sclera Mouth: No lip lesion, mucus membranes moist Cardiovascular: S1S2 reg, no murmur Lungs: CTA bilateral, no rhonchi, no rales, no accessory muscle use Abdominal: Soft, nontender to palpation, no guarding, no appreciable organomegaly Ext: No gross muscle atrophy, no edema, no contractures Neuro: CN II-XI grossly intact, no focal neuro deficits Psych: Alert, oriented, appropriate affect A total of 36 minutes of time were spent preparing this complex discharge catarina randolph. Patient was discharged on 10/02/2024 at 1256. Plan - Discharge Summary Discharge Rx Participant: Yes New Discharge Prescriptions: New Amiodarone [Cordarone] 400 mg PO BID #90 tab Metoprolol Succinate (ER) [Toprol XL] 12.5 mg PO DAILY #60 tab Continue Carbidopa-Levodopa ER 50-200Mg [Sinemet CR 50-200 mg] 1 tab PO HS Carbidopa-Levodopa 25-100 mg [Sinemet 25-100 mg] 1.5 tab PO TID@0900,1330,1830 Apixaban [Eliquis] 5 mg PO BID Aspirin 81 mg PO DAILY #90 tab Atorvastatin [Lipitor] 40 mg PO HS #90 tab Discontinued Dapagliflozin Propanediol [Farxiga] 10 mg PO DAILY #90 tab Isosorbide Mononitrate ER [Imdur] 30 mg PO DAILY #90 tab Metoprolol Tartrate [Lopressor] 50 mg PO BID #90 tab Amiodarone [Cordarone] See Taper PO DIRECTED Sacubitril/Valsartan [Entresto 24 mg-26 mg Tablet] 1 tab PO BID Discharge Medication List Apixaban [Eliquis] 5 mg PO BID 06/01/21 [History] Carbidopa-Levodopa 25-100 mg [Sinemet 25-100 mg] 1.5 tab PO TID@0900,1330,1830 06/01/21 [History] Carbidopa-Levodopa ER 50-200Mg [Sinemet CR 50-200 mg] 1 tab PO HS 12/06/22 [History] Aspirin 81 mg PO DAILY #90 tab 09/28/24 [Rx] Atorvastatin [Lipitor] 40 mg PO HS #90 tab 09/28/24 [Rx] Amiodarone [Cordarone] 400 mg PO BID #90 tab 10/02/24 [Rx] Metoprolol Succinate (ER) [Toprol XL] 12.5 mg PO DAILY #60 tab 10/02/24 [Rx] Follow up Appointment(s)/Referral(s): Gerhard Wilson DO [STAFF PHYSICIAN] - 1 Week Theresa Pires MD [Primary Care Provider] - 1-2 days Activity/Diet/Wound Care/Special Instructions: Please see your PCP, cardiology and social worker health services. Discharge Disposition: HOME SELF-CARE
== END 2024-10-02 14:01 | disposition home or self-care (01) | DRG 308 ==
LOC: EC 07:10 → 2SICU 08:52
PROVIDERS: ADMIT Student in an Organized Health Care Education/Training Program; ATTEND Student in an Organized Health Care Education/Training Program
PROC: 3E033XZ Introduction of Vasopressor into Peripheral Vein, Percutaneous Approach (ICD-10-PCS; principal; 2024-09-30)
DX: I48.0 Paroxysmal atrial fibrillation (principal); R57.0 Cardiogenic shock; E87.20 Acidosis, unspecified; G20.A1 Parkinson's disease without dyskinesia, without mention of fluctuations; D64.9 Anemia, unspecified; I51.81 Takotsubo syndrome; I42.8 Other cardiomyopathies; I50.9 Heart failure, unspecified; I25.10 Atherosclerotic heart disease of native coronary artery without angina pectoris; E87.6 Hypokalemia; E83.42 Hypomagnesemia; M54.9 Dorsalgia, unspecified; I25.2 Old myocardial infarction; Z79.01 Long term (current) use of anticoagulants; Z79.82 Long term (current) use of aspirin; Z79.84 Long term (current) use of oral hypoglycemic drugs; Z79.899 Other long term (current) drug therapy; Z87.891 Personal history of nicotine dependence; Z91.048 Other nonmedicinal substance allergy status; Z88.1 Allergy status to other antibiotic agents; Z88.8 Allergy status to other drugs, medicaments and biological substances
CPT/HCPCS: 36415; 71045; 80048; 80053; 83605; 83735; 84484; 85025; 85610; 85730; 93005; 93306; 96365; 96366; 96368; 96375; 99291